=== PATIENT | male | born 1940 | race African-American/Black ===

== ENCOUNTER 2018-12-10 13:20 | Inpatient (IN) | payer OTHER ==
[2018-12-10] MEDS ORDERED: SODIUM CHLORIDE 0.9% 1000 ML INFUS.BAG IV ONE ×2 (14:02→16:33)
--- NOTE | 2018-12-10 14:16 | PDOC ---
History of Present Illness - General Chief Complaint: Weakness Stated Complaint: WEAKNESS Time Seen by Provider: 12/10/18 13:38 - History of Present Illness Initial Comments: 12/10/18 18:40 Pt is a 77 y/o m BIBA from home due to increasing generalized weakness and inability to ambulate. Per phone conversation with daughter, pt was recently admitted to [facility] where he was treated for CHF exacerbation , dementia, and ALIYA. Daughter endorses that pt was discharged on Haldol as he was agitated during that admission. This morning, daughter states that pt appeared confused and could not stand on his feet. Daughter endorses pt has been complaining of shortness of breath for 3 weeks. Pt takes following medications per daughter. Losartan 50 mg daily Carvedilol 12.5 mg Furosemide 20 mg daily Haldol MG bid Tamsulosin .4 Atorvastatin 80 mg Past History - Past Medical History Allergies/Adverse Reactions: Allergies Allergy/AdvReac Type Severity Reaction Status Date / Time No Known Allergies Allergy Verified 12/10/18 17:18 Home Medications: Ambulatory Orders Atorvastatin Ca [Lipitor] 80 mg PO HS 12/10/18 Carvedilol 12.5 mg PO BID 12/10/18 Furosemide 20 mg PO DAILY 12/10/18 Haloperidol 2 mg PO BID 12/10/18 Losartan Potassium 50 mg PO DAILY 12/10/18 Tamsulosin HCl [Flomax] 0.4 mg PO HS 12/10/18 *Physical Exam - Physical Exam General Appearance: Yes: Moderate Distress HEENT: positive: Other (Prosthetic Left Eye ) Neck: positive: Trachea midline, Supple Respiratory/Chest: positive: Decreased Breath Sounds Cardiovascular: positive: Regular Rhythm, S1, S2, JVD Gastrointestinal/Abdominal: negative: Distended, Guarding, Rebound, Tenderness Extremity: negative: Pedal Edema Integumentary: positive: Normal Color, Dry, Warm. negative: Cyanotic, Erythema Neurologic: positive: Confused, Disoriented ED Treatment Course - LABORATORY CBC & Chemistry Diagram: 12/13/18 05:35 12/12/18 05:20 Medical Decision Making - Medical Decision Making -DDX includes but not limited to: Brain bleed, CHF, Toxic metabolic encephalopathy, Adverse drug reaction -Ordered routine labs, Head CT, NS 500 Bolus, troponin, lactic acid, UC, TSH, and Mag. Also will order Blood cultures/Urine culture. -WBC 25K, Will place on Vancomycin and Zosyn. BMP not resulted yet, will administer 1 time does of Vanco and Zosyn not renally dosed. -Pt sent to Cat Scan of Head and Chest -Pt also has UTI. CXR reveals Left upper lobe infiltrate. CT Chest--> small R and left pleural effusions. Superimposed infiltrate cannot be excluded. -Spoke with Dr Ornelas. Pt will be admitted to [facility] for CHF exacerbation/ Pneumonia/Possible Sepsis. Discharge - Discharge Information Problems reviewed: Yes Clinical Impression/Diagnosis: UTI (urinary tract infection), Leukocytosis, Altered mental status, Pneumonia, ALIYA (acute kidney injury), Transaminitis, Elevated troponin I level Condition: Guarded - Follow up/Referral - Patient Discharge Instructions - Post Discharge Activity
--- NOTE | 2018-12-10 15:27 | PDOC ---
Documentation entered by Melvina Andujar SCRIBE, acting as scribe for Letitia Valdez DO. Letitia Valdez DO: This documentation has been prepared by the Con marcelino Sammi, SCRIBE, under my direction and personally reviewed by me in its entirety. I confirm that the documentation accurately reflects all work, treatment, procedures, and medical decision making performed by me. Attending Attestation - Resident Resident Name: Chente Car - ED Attending Attestation I have performed the following: I have examined & evaluated the patient, The case was reviewed & discussed with the resident, I agree w/resident's findings & plan, Exceptions are as noted - HPI HPI: 12/10/18 14:57 The patient is a 78 year old male who presents to the emergency department for evaluation of increased lethargy, dizziness, and AMS noticed by the patients aide this morning. PMH: HTN, brain bleed, CHF - Physicial Exam PE: 12/10/18 14:57 GENERAL: Awake, alert, and oriented to person and place, in no acute distress. Poor historian. +mal odorous HEAD: +little depression right head, well healed sarath EYES: +false left eye. Right 3 and reactive NECK: +JVD. Normal ROM, supple, no lymphadenopathy, or masses LUNGS: Breath sounds equal, clear to auscultation bilaterally. No wheezes, and no crackles HEART: Regular rate and rhythm, normal S1 and S2, no murmurs, rubs or gallops ABDOMEN: Soft, nontender, normoactive bowel sounds. No guarding, no rebound. No masses EXTREMITIES: Normal range of motion, no edema. No clubbing or cyanosis. No cords, erythema, or tenderness NEUROLOGICAL: +Altered. Cranial nerves II through XII grossly intact. SKIN: Warm, Dry, normal turgor, no rashes or lesions noted. - Medical Decision Making 12/10/18 15:08 I, Dr. Letitia Valdez DO, attest that this document has been prepared under my direction and personally reviewed by me in its entirety. I further attest, that it accurately reflects all work, treatment, procedures and medical decision -making performed by me. a/p: 78yo male with altered ms -concern for uti -hx of brain bleeds in the past -concern for uti vs brain bleed vs infection vs electrolyte abnl -will send for head ct, labs, ekg, cxr, ua, ucx 12/10/18 15:41 purulent drainage on straight cath RLL infiltrate on cxr will add blood cultures and will start broad spectrum abx pt will need admission 12/10/18 16:15 wbc 25 abx ordered uti 12/10/18 16:17 pt will need to be admitted pna, uti 12/10/18 16:21 pt with aliya, elevated lft, elevated trop pt denies cp/sob Discharge - Discharge Information Problems reviewed: Yes Clinical Impression/Diagnosis: UTI (urinary tract infection), Leukocytosis, Altered mental status, Pneumonia, ALIYA (acute kidney injury), Transaminitis, Elevated troponin I level Condition: Guarded - Admission Yes - Follow up/Referral - Patient Discharge Instructions - Post Discharge Activity Heart Score/ECG Review - ECG Intrepretation Comment:: 12/10/18 15:41 sinus at 78, nl axis, pvc, q waves septally, abnl ekg
[2018-12-10] MEDS ORDERED: VANCOMYCIN 1 GRAM (PRE-DOCKED) 1,000 MG/250 ML BAG IVPB ONE ×2 (15:28→16:45)
[2018-12-10 15:49] LABS: BASO % 0.2 % (0-2.0); EOS % 0.1 % (0-4.5); HEMATOCRIT 35.1 % (35.4-49); LYMPH % 3.3 % (8-40); MCH 29.8 pg (25.7-33.7); MCHC 31.4 g/dl (32.0-35.9); MEAN CELL VOLUME 94.7 fl (80-96); MEAN PLT VOLUME 13.8 fl (7.5-11.1); MONO % 4.2 % (3.8-10.2); NEUT % 92.2 % (42.8-82.8); PLATELET COUNT 130 K/MM3 (134-434); RDW 13.7 % (11.9-15.9); WHITE BLOOD COUNT 25.7 K/mm3 (4.0-10.0)
[2018-12-10 15:52] LABS: EPI CELLS 8.3 /HPF (0-5/HPF); HYALINE CASTS 7 /lpf (0-8); PH,URINE 6.5 (5.0-8.0); URINE APPEARANCE CLEAR; URINE BACTERIA 4.3 /hpf (NEGATIVE); URINE BILIRUBIN NEGATIVE (NEGATIVE); URINE COLOR YELLOW; URINE GLUCOSE (UA) NEGATIVE (NEGATIVE); URINE KETONE NEGATIVE (NEGATIVE); URINE LEUK ESTERASE 2+ (NEGATIVE); URINE NITRITE NEGATIVE (NEGATIVE); URINE PROTEIN 1+ (NEGATIVE); URINE RBC 374 /hpf (0-4); URINE WBC 31 /hpf (0-5)
[2018-12-10 16:04] LABS: ACTIVATED PTT 31.7 SECONDS (25.2-36.5)
[2018-12-10] MEDS ORDERED: PIPERACILLIN/TAZOB 3.375 GM 3.375 GM in DEXTROSE 5%-WATER - 50 ML IVPB ONE (16:16)
[2018-12-10] MEDS ORDERED: DEXTROSE 5% IVPB ONE (16:18)
[2018-12-10] MEDS ORDERED: VANCOMYCIN IVPB ONE (16:18)
[2018-12-10] MEDS ORDERED: WATER IVPB ONE (16:18)
[2018-12-10 16:19] LABS: ALBUMIN 3.1 g/dl (3.4-5.0); BILIRUBIN,TOTAL 1.8 mg/dL (0.2-1); BLOOD UREA NITROGEN 27.2 mg/dL (7-18); CALCIUM 8.9 mg/dL (8.5-10.1); CREATININE 2.2 mg/dL (0.55-1.3); MAGNESIUM 2.1 mg/dL (1.8-2.4); N-TERMINAL BNP 18613.6 pg/ml (5-450); POTASSIUM 4.1 mmol/L (3.5-5.1); TOT PROT 6.6 g/dl (6.4-8.2)
[2018-12-10 16:41] LABS: INR 1.62 (0.83-1.09); PROTHROMBIN TIME (PATIENT) 19.2 SEC (9.7-13.0)
[2018-12-10] MEDS ORDERED: PIPERACILLIN/TAZOB 3.375 GM 3.375 GM/50 ML BAG IVPB ONE (16:45)
[2018-12-10 17:58] LABS: ANISOCYTOSIS 0; MACROCYTOSIS 0; PLATELET ESTIMATE NORMAL
[2018-12-10] MEDS ORDERED: ACETAMINOPHEN 1000 MG/100 ML VIAL (NON FORMULARY) IVPB ONE (18:44)
[2018-12-10] MEDS ORDERED: ACETAMINOPHEN INJECTION 100 ML IVPB ONE (18:45)
--- NOTE | 2018-12-10 20:46 | HP ---
Admitting History and Physical - Primary Care Physician PCP: Martin Ornelas - Admission History of Present Illness: Pt is a 77 y/o m BIBA from home due to increasing generalized weakness and inability to ambulate. Per phone conversation with daughter, pt was recently admitted to [facility] where he was treated for CHF exacerbation , dementia, and ALIYA. Daughter endorses that pt was discharged on Haldol as he was agitated during that admission. This morning, daughter states that pt appeared confused and could not stand on his feet. Daughter endorses pt has been complaining of shortness of breath for 3 weeks. 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 Cardiovascular: Yes: CHF - Smoking History Smoking history: Unknown if ever smoked Have you smoked in the past 12 months: No - Alcohol/Substance Use Hx Alcohol Use: No Home Medications - Allergies Allergies/Adverse Reactions: Allergies Allergy/AdvReac Type Severity Reaction Status Date / Time No Known Allergies Allergy Verified 12/10/18 17:18 - Home Medications Home Medications: Ambulatory Orders Atorvastatin Ca [Lipitor] 80 mg PO HS 12/10/18 Carvedilol 12.5 mg PO BID 12/10/18 Furosemide 20 mg PO DAILY 12/10/18 Haloperidol 2 mg PO BID 12/10/18 Losartan Potassium 50 mg PO DAILY 12/10/18 Tamsulosin HCl [Flomax] 0.4 mg PO HS 12/10/18 Physical Examination Vital Signs: Vital Signs Temperature 98.1 F 12/10/18 13:30 Pulse Rate 72 12/10/18 13:30 Respiratory Rate 18 12/10/18 13:30 Blood Pressure 134/74 12/10/18 13:30 O2 Sat by Pulse Oximetry (%) 97 12/10/18 13:30 Constitutional: Yes: No Distress HENT: Yes: Atraumatic Neck: Yes: Supple Cardiovascular: Yes: Regular Rate and Rhythm Respiratory: Yes: Rhonchi Gastrointestinal: Yes: Normal Bowel Sounds Extremities: Yes: WNL Edema: No Neurological: Yes: Alert Labs: CBC, BMP 12/10/18 15:07 12/10/18 15:07 Problem List - Problems (1) ALIYA (acute kidney injury) Assessment/Plan: monitor renal consult Code(s): N17.9 - ACUTE KIDNEY FAILURE, UNSPECIFIED (2) Altered mental status Assessment/Plan: doing well alert talking Code(s): R41.82 - ALTERED MENTAL STATUS, UNSPECIFIED (3) Elevated troponin I level Code(s): R79.89 - OTHER SPECIFIED ABNORMAL FINDINGS OF BLOOD CHEMISTRY (4) Pneumonia Code(s): J18.9 - PNEUMONIA, UNSPECIFIED ORGANISM (5) UTI (urinary tract infection) Assessment/Plan: on abx cxs sent Code(s): N39.0 - URINARY TRACT INFECTION, SITE NOT SPECIFIED Assessment/Plan Laboratory Tests 12/10/18 12/10/18 12/10/18 15:07 15:07 15:07 WBC 25.7 H RBC 3.70 L Hgb 11.0 L Hct 35.1 L MCV 94.7 MCH 29.8 MCHC 31.4 L RDW 13.7 Plt Count 130 L MPV 13.8 H Absolute Neuts (auto) 23.7 H Neutrophils % 92.2 H Neutrophils % (Manual) 97.0 H Band Neutrophils % 0.0 Lymphocytes % 3.3 L Lymphocytes % (Manual) 1.0 L Monocytes % 4.2 Monocytes % (Manual) 2 L Eosinophils % 0.1 Eosinophils % (Manual) 0.0 Basophils % 0.2 Basophils % (Manual) 0.0 Myelocytes % (Man) 0 Promyelocytes % (Man) 0 Blast Cells % (Manual) 0 Nucleated RBC % 0 Metamyelocytes 0 Hypochromia 0 Platelet Estimate Normal Polychromasia 1+ Poikilocytosis 0 Anisocytosis 0 Microcytosis 0 Macrocytosis 0 PT with INR 19.20 H INR 1.62 H PTT (Actin FS) 31.7 Sodium Potassium Chloride Carbon Dioxide Anion Gap BUN Creatinine Est GFR (CKD-EPI)AfAm Est GFR (CKD-EPI)NonAf Random Glucose Lactic Acid Calcium Magnesium Total Bilirubin AST ALT Alkaline Phosphatase Creatine Kinase 182 Creatine Kinase Index 0.7 CK-MB (CK-2) 1.3 Troponin I 0.06 H B-Natriuretic Peptide Total Protein Albumin TSH 1.06 Urine Color Urine Appearance Urine pH Ur Specific [place] Urine Protein Urine Glucose (UA) Urine Ketones Urine Blood Urine Nitrite Urine Bilirubin Urine Urobilinogen Ur Leukocyte Esterase Urine WBC (Auto) Urine RBC (Auto) Urine Casts (Auto) U Epithel Cells (Auto) U Sm Round Cell (Auto) Urine Bacteria (Auto) 12/10/18 12/10/18 12/10/18 15:07 15:07 15:10 WBC RBC Hgb Hct MCV MCH MCHC RDW Plt Count MPV Absolute Neuts (auto) Neutrophils % Neutrophils % (Manual) Band Neutrophils % Lymphocytes % Lymphocytes % (Manual) Monocytes % Monocytes % (Manual) Eosinophils % Eosinophils % (Manual) Basophils % Basophils % (Manual) Myelocytes % (Man) Promyelocytes % (Man) Blast Cells % (Manual) Nucleated RBC % Metamyelocytes Hypochromia Platelet Estimate Polychromasia Poikilocytosis Anisocytosis Microcytosis Macrocytosis PT with INR INR PTT (Actin FS) Sodium 142 Potassium 4.1 Chloride 108 H Carbon Dioxide 26 Anion Gap 8 BUN 27.2 H Creatinine 2.2 H Est GFR (CKD-EPI)AfAm 32.52 Est GFR (CKD-EPI)NonAf 28.06 Random Glucose 108 H Lactic Acid 1.8 Calcium 8.9 Magnesium 2.1 Total Bilirubin 1.8 H AST 64 H ALT 99 H Alkaline Phosphatase 206 H Creatine Kinase Creatine Kinase Index CK-MB (CK-2) Troponin I B-Natriuretic Peptide 23920.6 H Total Protein 6.6 Albumin 3.1 L TSH Urine Color Yellow Urine Appearance Clear Urine pH 6.5 Ur Specific [place] 1.018 Urine Protein 1+ H Urine Glucose (UA) Negative Urine Ketones Negative Urine Blood 3+ H Urine Nitrite Negative Urine Bilirubin Negative Urine Urobilinogen 1.0 Ur Leukocyte Esterase 2+ H Urine WBC (Auto) 31 Urine RBC (Auto) 374 Urine Casts (Auto) 7 U Epithel Cells (Auto) 8.3 U Sm Round Cell (Auto) Negative Urine Bacteria (Auto) 4.3 Active Medications Generic Name Dose Route Start Last Admin Trade Name Freq PRN Reason Stop Dose Admin Acetaminophen 650 mg 12/10/18 20:42 Tylenol - PO Q6H PRN FEVER Atorvastatin Calcium 80 mg 12/10/18 22:00 Lipitor - PO HS [facility] Carvedilol 12.5 mg 12/10/18 22:00 Coreg - PO BID [facility] Heparin Sodium (Porcine) 5,000 unit 12/10/18 22:00 Heparin - SQ BID [facility] Losartan Potassium 50 mg 12/11/18 10:00 Cozaar - PO DAILY JONNY Tamsulosin HCl 0.4 mg 12/10/18 22:00 Flomax - PO HS JONNY
[2018-12-10 21:11] LABS: VENOUS PC02 37.2 mmHg (38-52); VENOUS PH 7.43 (7.31-7.41)
[2018-12-10 21:15] LABS: VENOUS PO2 < 49 mmHg (28-48)
[2018-12-10] MEDS ORDERED: TAMSULOSIN HCL 0.4 MG CAP ONE (22:08)
[2018-12-10] MEDS ORDERED: HEPARIN NA (PORCINE) 5,000 UNITS/ML 1ML VIAL ONE (22:08)
[2018-12-10] MEDS ORDERED: ATORVASTATIN CA 80 MG TABLET (FP) ONE (22:08)
[2018-12-10] MEDS ORDERED: CARVEDILOL 12.5 MG TABLET (FP) ONE (22:08)
[2018-12-10] MEDS: HEPARIN NA (PORCINE) 5,000 UNITS/ML 1ML VIAL SQ SCH (22:18)
[2018-12-10] MEDS: ATORVASTATIN CA 80 MG TABLET (FP) PO SCH (22:19)
[2018-12-10] MEDS: TAMSULOSIN HCL 0.4 MG CAP PO SCH (22:19)
[2018-12-10] MEDS: CARVEDILOL 12.5 MG TABLET (FP) PO SCH (22:19)
[2018-12-11 06:19] LABS: BILIRUBIN,TOTAL 2.1 mg/dL (0.2-1); BLOOD UREA NITROGEN 25.9 mg/dL (7-18); CREATININE 2.1 mg/dL (0.55-1.3); POTASSIUM 4.2 mmol/L (3.5-5.1); TOT PROT 6.5 g/dl (6.4-8.2)
[2018-12-11] MEDS ORDERED: CARVEDILOL 12.5 MG TABLET (FP) ONE (08:24)
[2018-12-11] MEDS ORDERED: HEPARIN NA (PORCINE) 5,000 UNITS/ML 1ML VIAL ONE (08:25)
[2018-12-11] MEDS ORDERED: LOSARTAN POTASSIUM 50 MG TABLET (FP) ONE (08:25)
[2018-12-11 08:29] LABS: BASO % 0.3 % (0-2.0); EOS % 0.1 % (0-4.5); HEMATOCRIT 36.6 % (35.4-49); HEMOGLOBIN 11.5 GM/dL (11.7-16.9); LYMPH % 2.2 % (8-40); MCHC 31.4 g/dl (32.0-35.9); MEAN CELL VOLUME 95.7 fl (80-96); MEAN PLT VOLUME 13.1 fl (7.5-11.1); MONO % 4.9 % (3.8-10.2); NEUT % 92.5 % (42.8-82.8); PLATELET COUNT 131 K/MM3 (134-434); RBC 3.82 M/mm3 (4.00-5.60); RDW 14.3 % (11.9-15.9)
[2018-12-11 08:35] LABS: WHITE BLOOD COUNT 32.6 K/mm3 (4.0-10.0)
[2018-12-11] MEDS: LOSARTAN POTASSIUM 50 MG TABLET (FP) PO SCH (09:13)
[2018-12-11] MEDS: HEPARIN NA (PORCINE) 5,000 UNITS/ML 1ML VIAL SQ SCH ×2 (09:13→23:23)
[2018-12-11] MEDS: CARVEDILOL 12.5 MG TABLET (FP) PO SCH ×2 (09:13→23:23)
[2018-12-11] MEDS ORDERED: PIPERACILLIN/TAZOB 3.375 GM 3.375 GM in DEXTROSE 5%-WATER - 50 ML IVPB ONE (10:28)
[2018-12-11] MEDS ORDERED: VANCOMYCIN HCL 1,500 MG in DEXTROSE 5%-WATER - 500 ML IVPB ONE (10:28)
[2018-12-11] MEDS ORDERED: PIPERACILLIN/TAZOB 3.375 GM 3.375 GM/50 ML BAG IVPB ONE (10:31)
--- NOTE | 2018-12-11 11:05 | EKG ---
Test Reason : Blood Pressure : / mmHG Vent. Rate : 079 BPM Atrial Rate : 079 BPM P-R Int : 158 ms QRS Dur : 084 ms QT Int : 382 ms P-R-T Axes : 065 036 160 degrees QTc Int : 438 ms SINUS RHYTHM WITH FREQUENT PREMATURE VENTRICULAR COMPLEXES POSSIBLE LEFT ATRIAL ENLARGEMENT SEPTAL INFARCT , AGE UNDETERMINED ABNORMAL ECG Confirmed by Donnie Nolan MD ([id number]) on 12/11/2018 11:05:06 AM Referred By: Confirmed By:Donnie Nolan MD
--- NOTE | 2018-12-11 11:06 | EKG ---
Test Reason : Blood Pressure : / mmHG Vent. Rate : 076 BPM Atrial Rate : 076 BPM P-R Int : 152 ms QRS Dur : 086 ms QT Int : 378 ms P-R-T Axes : 076 026 198 degrees QTc Int : 425 ms SINUS RHYTHM WITH FREQUENT PREMATURE VENTRICULAR COMPLEXES POSSIBLE LEFT ATRIAL ENLARGEMENT LOW VOLTAGE QRS SEPTAL INFARCT , AGE UNDETERMINED T WAVE ABNORMALITY, CONSIDER LATERAL ISCHEMIA ABNORMAL ECG NO PREVIOUS ECGS AVAILABLE Confirmed by Donnie Nolan MD ([id number]) on 12/11/2018 11:05:26 AM Referred By: Confirmed By:Donnie Nolan MD
[2018-12-11 11:53] LABS: ANISOCYTOSIS 0; MACROCYTOSIS 0; PLATELET ESTIMATE DECREASED
--- NOTE | 2018-12-11 12:27 | CON.CARD ---
Consult Consult Specialty:: Cardiology Referred by:: Hospitalist Reason for Consultation:: Cardiac evaluation - History of Present Illness Chief Complaint: Generalized weakness, shortness of breath History of Present Illness: Patient is a 78 year old male with history of dementia (organic brain), ALIYA on CKD and CHF who presented to ED with increasing generalized weakness and currently complains of back pain. He is a poor historian. He was admitted to [facility] recently and was treated for CHF. He was found to be confused and had difficulty standing on his feet. He also has been complaining of shortness of breath for the past few weeks. Currently, he states chest tightness. Denies palpitations. Denies fever or chills. Denies nausea, vomiting , diarrhea or abdominal pain. Denies headache or lightheadedness. Review of medication indicated history of HTN and hypercholesterolemia. - History Source History Provided By: Medical Record Limitations to Obtaining History: Dementia - Past Medical History FOURTH HAND: Yes: Dementia Cardio/Vascular: Yes: CHF - Alcohol/Substance Use Hx Alcohol Use: No - Smoking History Smoking history: Unknown if ever smoked Have you smoked in the past 12 months: No Home Medications - Allergies Allergies/Adverse Reactions: Allergies Allergy/AdvReac Type Severity Reaction Status Date / Time No Known Allergies Allergy Verified 12/10/18 17:18 - Home Medications Home Medications: Ambulatory Orders Atorvastatin Ca [Lipitor] 80 mg PO HS 12/10/18 Carvedilol 12.5 mg PO BID 12/10/18 Furosemide 20 mg PO DAILY 12/10/18 Haloperidol 2 mg PO BID 12/10/18 Losartan Potassium 50 mg PO DAILY 12/10/18 Tamsulosin HCl [Flomax] 0.4 mg PO HS 12/10/18 Family Medical History Family History: Unable to Obtain Review of Systems - Review of Systems Constitutional: reports: Weakness. denies: Chills, Fever Cardiovascular: reports: Shortness of Breath. denies: Chest Pain, Palpitations Respiratory: reports: SOB, SOB on Exertion. denies: Cough, Hemoptysis, Orthopnea, PND Gastrointestinal: denies: Abdominal Pain, Constipation, Diarrhea, Melena, Nausea , Rectal Bleeding, Vomiting Musculoskeletal: reports: Back Pain. denies: Joint Pain Neurological: denies: Dizziness, Headache, Seizure, Syncope Vital Signs: Vital Signs Temperature 98.9 F 12/11/18 10:47 Pulse Rate 70 12/11/18 10:47 Respiratory Rate 19 12/11/18 10:47 Blood Pressure 138/90 12/11/18 10:47 O2 Sat by Pulse Oximetry (%) 100 12/11/18 10:47 HENT: Yes: Atraumatic Neck: Yes: Supple Respiratory: Yes: Diminished Gastrointestinal: Yes: Normal Bowel Sounds, Soft. No: Tenderness Cardiovascular: Yes: Regular Rate and Rhythm JVD: No PMI: Non-Displaced Heart Sounds: Yes: S1, S2 Murmur: Yes: Systolic Murmur, Grade 1 Edema: No - Other Data Labs, Other Data: CBC, BMP 12/11/18 08:10 12/11/18 05:32 INR, PTT INR 1.62 (0.83-1.09) H 12/10/18 15:07 Troponin, BNP 12/10/18 12/10/18 12/10/18 15:07 15:07 20:45 Troponin I 0.06 H 0.07 H B-Natriuretic Peptide 90243.6 H Sinus rhythm with PVC Echo: Pending Imaging - Results Chest X-ray: Report Reviewed (Suspicious left upper lobe density) Cat Scan: Report Reviewed (Chest CT: pleural effusion and atelectasis, Abd CT: Free pelvic fluid, Head CT- microvascular ischemic changes) EKG: Report Reviewed Problem List - Problems (1) HTN (hypertension) Code(s): I10 - ESSENTIAL (PRIMARY) HYPERTENSION (2) Hypercholesterolemia Code(s): E78.00 - PURE HYPERCHOLESTEROLEMIA, UNSPECIFIED (3) Dementia Code(s): F03.90 - UNSPECIFIED DEMENTIA WITHOUT BEHAVIORAL DISTURBANCE (4) ALIYA (acute kidney injury) Code(s): N17.9 - ACUTE KIDNEY FAILURE, UNSPECIFIED (5) Altered mental status Code(s): R41.82 - ALTERED MENTAL STATUS, UNSPECIFIED (6) Elevated troponin I level Code(s): R79.89 - OTHER SPECIFIED ABNORMAL FINDINGS OF BLOOD CHEMISTRY (7) Leukocytosis Code(s): D72.829 - ELEVATED WHITE BLOOD CELL COUNT, UNSPECIFIED (8) Transaminitis Code(s): R74.0 - NONSPEC ELEV OF LEVELS OF TRANSAMNS & LACTIC ACID DEHYDRGNSE Assessment/Plan 1. Generalized weakness 2. Shortness of breath with small pleural effusion 3. Pelvic fluid ? etiology 4. HTN 5. Hypercholesterolemia 6. Organic brain syndrome/dementia 7. Leukocytosis ? sepsis 8. Demand ischemia 9. Abnormal LFT 10. ALIYA PLAN: 1. Echocardiography to assess LV/RV and valvular function 2. Continue Carvedilol, Losartan and Atorvastatin as tolerated 3. Further evaluation of leukocytosis and source of possible sepsis. Consider empiric antibiotic coverage. Await ID input 4. Trend troponin 5. Monitor renal function and electrolytes Further plans are to follow Lukasz Perez MD
--- NOTE | 2018-12-11 13:00 | CON.ID ---
Consult Consult Specialty:: infectious diseases Referred by:: Reason for Consultation:: weakness,leukocytosis,aliya - History of Present Illness Chief Complaint: weakness History of Present Illness: 78 year old male with pmhx of chf, dementia and aliya who presents to the ER with weakness and fatigue. He was recently in [facility] for ALIYA and CHF. He is a poor historian and unable to give much history. He denies shortness of breath. he denies fevers or chills. He denies dysuria or hematuria. He complains of weakness. 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 Cardio/Vascular: Yes: CHF - Alcohol/Substance Use Hx Alcohol Use: No - Smoking History Smoking history: Unknown if ever smoked Have you smoked in the past 12 months: No Home Medications - Allergies Allergies/Adverse Reactions: Allergies Allergy/AdvReac Type Severity Reaction Status Date / Time No Known Allergies Allergy Verified 12/10/18 17:18 - Home Medications Home Medications: Ambulatory Orders RX: Atorvastatin Ca [Lipitor] 80 mg PO HS 12/10/18 RX: Carvedilol 12.5 mg PO BID 12/10/18 RX: Furosemide 20 mg PO DAILY 12/10/18 RX: Haloperidol 2 mg PO BID 12/10/18 RX: Losartan Potassium 50 mg PO DAILY 12/10/18 RX: Tamsulosin HCl [Flomax] 0.4 mg PO HS 12/10/18 RX: Metronidazole 500 mg PO TID #15 tablet 12/24/18 Review of Systems Unable to obtain ROS, reason: unable to obtain Physical Exam Vital Signs: Vital Signs Temperature 98.9 F 12/11/18 10:47 Pulse Rate 70 12/11/18 10:47 Respiratory Rate 19 12/11/18 10:47 Blood Pressure 138/90 12/11/18 10:47 O2 Sat by Pulse Oximetry (%) 100 12/11/18 10:47 Constitutional: Yes: No Distress, Calm Cardiovascular: Yes: Regular Rate and Rhythm Respiratory: Yes: Regular, CTA Bilaterally Gastrointestinal: Yes: Normal Bowel Sounds, Soft Musculoskeletal: Yes: WNL Extremities: Yes: WNL Edema: LLE: 1+, RLE: 1+ Neurological: Yes: Alert, Other (confusion) Psychiatric: Yes: Alert Labs: CBC, BMP 12/11/18 08:10 12/11/18 05:32 Imaging - Results Chest X-ray: Report Reviewed, Image Reviewed Cat Scan: Report Reviewed, Image Reviewed Assessment/Plan irina List - Problems (1) ALIYA (acute kidney injury) Code(s): N17.9 - ACUTE KIDNEY FAILURE, UNSPECIFIED (2) Dementia Code(s): F03.90 - UNSPECIFIED DEMENTIA WITHOUT BEHAVIORAL DISTURBANCE Qualifiers: Dementia type: unspecified type (3) HTN (hypertension) Code(s): I10 - ESSENTIAL (PRIMARY) HYPERTENSION Qualifiers: Hypertension type: essential hypertension Qualified Code(s): I10 - Essential (primary) hypertension (4) Hydrocele in adult Code(s): N43.3 - HYDROCELE, UNSPECIFIED (5) Leukocytosis Code(s): D72.829 - ELEVATED WHITE BLOOD CELL COUNT, UNSPECIFIED (6) UTI (urinary tract infection) Code(s): N39.0 - URINARY TRACT INFECTION, SITE NOT SPECIFIED Assessment/Plan Diarrhea UTI Leukocytosis plan will start patient on abx all cx reports monitor wbc probably uti once we have all reports then will decide final plan
[2018-12-11] MEDS ORDERED: PIPERACILLIN/TAZOB 2.25 GM 2.25 GM in DEXTROSE 5%-WATER - 50 ML IVPB SCH (13:15)
[2018-12-11] MEDS: PIPERACILLIN/TAZOB 3.375 GM 3.375 GM in DEXTROSE 5%-WATER - 50 ML IVPB SCH ×2 (13:19→18:57)
--- NOTE | 2018-12-11 16:50 | PN ---
Progress Note, Physician - Current Medication List Current Medications: Active Medications Acetaminophen (Tylenol -) 650 mg PO Q6H PRN PRN Reason: FEVER Atorvastatin Calcium (Lipitor -) 80 mg PO HS [facility] Last Admin: 12/10/18 22:19 Dose: Not Given Carvedilol (Coreg -) 12.5 mg PO BID [facility] Last Admin: 12/11/18 09:13 Dose: 12.5 mg Heparin Sodium (Porcine) (Heparin -) 5,000 unit SQ BID [facility] Last Admin: 12/11/18 09:13 Dose: 5,000 unit Piperacillin Sod/Tazobactam (Sod 3.375 gm/ Dextrose) 50 mls @ 100 mls/hr IVPB Q8H-IV JONNY; Protocol Last Admin: 12/11/18 13:19 Dose: Not Given Losartan Potassium (Cozaar -) 50 mg PO DAILY [facility] Last Admin: 12/11/18 09:13 Dose: 50 mg Tamsulosin HCl (Flomax -) 0.4 mg PO HS [facility] Last Admin: 12/10/18 22:19 Dose: Not Given - Objective Vital Signs: Vital Signs Temperature 99.2 F 12/11/18 14:46 Pulse Rate 68 12/11/18 14:46 Respiratory Rate 19 12/11/18 14:46 Blood Pressure 103/88 12/11/18 14:46 O2 Sat by Pulse Oximetry (%) 98 12/11/18 14:46 Constitutional: Yes: No Distress HENT: Yes: Atraumatic Neck: Yes: Supple Cardiovascular: Yes: Regular Rate and Rhythm Respiratory: Yes: CTA Bilaterally Gastrointestinal: Yes: Normal Bowel Sounds Extremities: Yes: WNL Edema: No Peripheral Pulses WNL: Yes Neurological: Yes: Alert Labs: CBC, BMP 12/11/18 08:10 12/11/18 05:32 INR, PTT INR 1.62 (0.83-1.09) H 12/10/18 15:07 Problem List - Problems (1) ALIYA (acute kidney injury) Assessment/Plan: monitor improving renal consult Code(s): N17.9 - ACUTE KIDNEY FAILURE, UNSPECIFIED (2) Altered mental status Assessment/Plan: doing well alert talking Code(s): R41.82 - ALTERED MENTAL STATUS, UNSPECIFIED (3) Elevated troponin I level Code(s): R79.89 - OTHER SPECIFIED ABNORMAL FINDINGS OF BLOOD CHEMISTRY (4) Pneumonia Code(s): J18.9 - PNEUMONIA, UNSPECIFIED ORGANISM (5) UTI (urinary tract infection) Assessment/Plan: on abx cxs noted Code(s): N39.0 - URINARY TRACT INFECTION, SITE NOT SPECIFIED
[2018-12-11] MEDS ORDERED: PIPERACILLIN/TAZOBACTAM 3.375 GM VIAL IVPB ONE (17:40)
[2018-12-11] MEDS ORDERED: DEXTROSE 5%-WATER - 50 ML IVPB ONE (17:40)
[2018-12-11] MEDS: HALOPERIDOL 2 MG TABLET PO SCH (23:23)
[2018-12-11] MEDS: TAMSULOSIN HCL 0.4 MG CAP PO SCH (23:23)
[2018-12-11] MEDS: ATORVASTATIN CA 80 MG TABLET (FP) PO SCH (23:23)
[2018-12-12] MEDS ORDERED: PIPERACILLIN/TAZOBACTAM 3.375 GM VIAL IVPB ONE ×2 (02:45→10:13)
[2018-12-12] MEDS ORDERED: DEXTROSE 5%-WATER - 50 ML IVPB ONE ×2 (02:47→10:13)
[2018-12-12] MEDS: PIPERACILLIN/TAZOB 3.375 GM 3.375 GM in DEXTROSE 5%-WATER - 50 ML IVPB SCH ×2 (03:40→10:19)
[2018-12-12 06:51] LABS: HEMATOCRIT 32.8 % (35.4-49); HEMOGLOBIN 10.6 GM/dL (11.7-16.9); MCH 30.4 pg (25.7-33.7); MCHC 32.3 g/dl (32.0-35.9); MEAN CELL VOLUME 94.2 fl (80-96); MEAN PLT VOLUME 13.1 fl (7.5-11.1); PLATELET COUNT 145 K/MM3 (134-434); RBC 3.48 M/mm3 (4.00-5.60); RDW 13.9 % (11.9-15.9); WHITE BLOOD COUNT 24.5 K/mm3 (4.0-10.0)
[2018-12-12 07:33] LABS: CALCIUM 8.5 mg/dL (8.5-10.1); POTASSIUM 4.1 mmol/L (3.5-5.1)
[2018-12-12] MEDS ORDERED: PT OWN MED DRAWER 7, Y5N ONE ×6 (10:12→23:10)
[2018-12-12] MEDS: HEPARIN NA (PORCINE) 5,000 UNITS/ML 1ML VIAL SQ SCH ×2 (10:18→21:15)
[2018-12-12] MEDS: LOSARTAN POTASSIUM 50 MG TABLET (FP) PO SCH (10:18)
[2018-12-12] MEDS: CARVEDILOL 12.5 MG TABLET (FP) PO SCH ×2 (10:18→21:16)
[2018-12-12] MEDS: HALOPERIDOL 2 MG TABLET PO SCH ×2 (10:19→21:17)
--- NOTE | 2018-12-12 11:53 | PN ---
Progress Note, Physician History of Present Illness: Sensorium improved, denies chest pain or dyspnea. Diarrhea w/o abd pain started on oral vanco. - Current Medication List Current Medications: Active Medications Acetaminophen (Tylenol -) 650 mg PO Q6H PRN PRN Reason: FEVER Atorvastatin Calcium (Lipitor -) 80 mg PO HS [facility] Last Admin: 12/11/18 23:23 Dose: 80 mg Carvedilol (Coreg -) 12.5 mg PO BID [facility] Last Admin: 12/12/18 10:18 Dose: 12.5 mg Haloperidol (Haldol -) 2 mg PO BID [facility] Last Admin: 12/12/18 10:19 Dose: 2 mg Heparin Sodium (Porcine) (Heparin -) 5,000 unit SQ BID [facility] Last Admin: 12/12/18 10:18 Dose: 5,000 unit Piperacillin Sod/Tazobactam (Sod 3.375 gm/ Dextrose) 50 mls @ 100 mls/hr IVPB Q8H-IV [facility]; Protocol Last Admin: 12/12/18 10:19 Dose: 100 mls/hr Losartan Potassium (Cozaar -) 50 mg PO DAILY [facility] Last Admin: 12/12/18 10:18 Dose: 50 mg Tamsulosin HCl (Flomax -) 0.4 mg PO HS [facility] Last Admin: 12/11/18 23:23 Dose: 0.4 mg - Objective Vital Signs: Vital Signs Temperature 99.2 F 12/12/18 09:00 Pulse Rate 86 12/12/18 09:00 Respiratory Rate 18 12/12/18 09:00 Blood Pressure 114/75 12/12/18 09:00 O2 Sat by Pulse Oximetry (%) 98 12/11/18 21:00 Constitutional: Yes: No Distress, Calm Neck: Yes: Supple Cardiovascular: Yes: Regular Rate and Rhythm Respiratory: Yes: Regular, Diminished, On Nasal O2 Gastrointestinal: Yes: Normal Bowel Sounds, Soft Edema: No Labs: CBC, BMP 12/12/18 05:20 12/12/18 05:20 INR, PTT INR 1.62 (0.83-1.09) H 12/10/18 15:07 - ....Imaging EKG: Report Reviewed (Tele: NSR occ [facility]) Problem List - Problems (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 Code(s): I51.89 - OTHER ILL-DEFINED HEART DISEASES (2) ALIYA (acute kidney injury) Code(s): N17.9 - ACUTE KIDNEY FAILURE, UNSPECIFIED (3) Dementia Code(s): F03.90 - UNSPECIFIED DEMENTIA WITHOUT BEHAVIORAL DISTURBANCE Qualifiers: Dementia type: unspecified type (4) Elevated troponin I level Code(s): R79.89 - OTHER SPECIFIED ABNORMAL FINDINGS OF BLOOD CHEMISTRY (5) HTN (hypertension) Code(s): I10 - ESSENTIAL (PRIMARY) HYPERTENSION Qualifiers: Hypertension type: essential hypertension Qualified Code(s): I10 - Essential (primary) hypertension (6) Hypercholesterolemia Code(s): E78.00 - PURE HYPERCHOLESTEROLEMIA, UNSPECIFIED (7) Leukocytosis Code(s): D72.829 - ELEVATED WHITE BLOOD CELL COUNT, UNSPECIFIED (8) Transaminitis Code(s): R74.0 - NONSPEC ELEV OF LEVELS OF TRANSAMNS & LACTIC ACID DEHYDRGNSE Assessment/Plan 12/12/2018 Echo: Mildly dilated with moderate-severe decreased LVEF 35-40%, mild MR, TR, mild AR, mod ADAM, restrictive physiology 1. Shortness of breath, weakness with small pleural effusion improving 2/2 2. 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 HTN heart disease 4. Hypercholesterolemia 5. Organic brain syndrome/dementia 6. Leukocytosis, diarrhea, r/o c. diff 7. Abnormal LFT c/w hepatic congestion improving 8. Acute on CKD improving PLAN: 1. Continue Carvedilol 12.5 bid, Losartan 50 qd and Atorvastatin 80 qhs as tolerated 2. Not on aldosterone inhibition due to CKD 3. Further evaluation of leukocytosis and source of possible sepsis, r/o c. diff. Continue empiric antibiotic coverage. Appreciate ID input 4. Troponin plateaued, trend WBC 5. DVT prophylaxis
--- NOTE | 2018-12-12 12:22 | ECHO ---
Name: DASHA WEISS Exam:Adult Echocardiogram Study Date: 12/12/2018 07:46 AM Age: 78 yrs Reason For Study: SOB Height: 73 in Weight: 210 lb BSA: 2.2 m2 MMode/2D Measurements & Calculations IVSd: 1.0 cm Ao root diam: 3.3 cm LVIDd: 5.7 cm LA dimension: 3.8 cm LVIDs: 4.6 cm LVPWd: 1.2 cm EDV(Teich): 157.9 ml LVOT diam: 2.0 cm ESV(Teich): 99.1 ml LAV (MOD-bp): 113.0 ml Doppler Measurements & Calculations MV E max yared: 88.8 cm/sec Ao V2 max: 112.7 cm/sec MV A max yared: 33.0 cm/sec Ao max P.1 mmHg MV E/A: 2.7 AI P1/2t: 558.1 msec MV dec time: 0.18 sec CRAIG(V,D): 2.1 cm2 AI max yared: 245.7 cm/sec LV V1 max P.1 mmHg AI max P.2 mmHg LV V1 max: 72.8 cm/sec AI dec slope: 128.9 cm/sec2 MR max yared: 324.0 cm/sec TR max yared: 227.4 cm/sec MR max P.6 mmHg TR max P.9 mmHg PA V2 max: 76.0 cm/sec Med Peak E' Yared: 3.4 cm/sec PA max P.3 mmHg Med E/e': 26.3 Lat Peak E' Yared: 6.4 cm/sec Lat E/e': 13.8 Procedure A two-dimensional transthoracic echocardiogram with color flow and Doppler was performed. Left Ventricle The left ventricle is mildly dilated. Left ventricular systolic function is moderate to severely redu sandeep. Ejection Fraction = 35-40%. The transmitral spectral Doppler flow pattern is suggestive of restrictiv e physiology. There is moderate to severe global hypokinesis of the left ventricle. Septal motion is co nsistent with conduction abnormality. Right Ventricle The right ventricle is not well visualized. Atria The left atrium is moderately dilated. The right atrium is moderately dilated. Mitral Valve The mitral valve is normal in structure and function. There is no mitral valve stenosis. There is mil d mitral regurgitation. Tricuspid Valve The tricuspid valve is not well visualized. There is no tricuspid stenosis. There is mild tricuspid regurgitation. Right ventricular systolic pressure is normal. Aortic Valve The aortic valve is normal in structure and function. No hemodynamically significant valvular aortic stenosis. Mild aortic regurgitation. Great Vessels The aortic root is normal size. Pericardium/Pleura There is a mild pericardial effusion. Interpretation Summary The left ventricle is mildly dilated. There is a mild pericardial effusion. There is mild mitral regurgitation. There is mild tricuspid regurgitation. Right ventricular systolic pressure is normal. Septal motion is consistent with conduction abnormality. Left ventricular systolic function is moderate to severely reduced. There is moderate to severe global hypokinesis of the left ventricle. Ejection Fraction = 35-40%. Mild aortic regurgitation. The transmitral spectral Doppler flow pattern is suggestive of restrictive physiology. The left atrium is moderately dilated. The right atrium is moderately dilated. The right ventricle is not well visualized. MD Evelio Saenz 12/12/2018 12:21 PM
--- NOTE | 2018-12-12 14:37 | PN ---
Progress Note, Physician - Current Medication List Current Medications: Active Medications Acetaminophen (Tylenol -) 650 mg PO Q6H PRN PRN Reason: FEVER Atorvastatin Calcium (Lipitor -) 80 mg PO HS [facility] Last Admin: 12/11/18 23:23 Dose: 80 mg Carvedilol (Coreg -) 12.5 mg PO BID [facility] Last Admin: 12/12/18 10:18 Dose: 12.5 mg Haloperidol (Haldol -) 2 mg PO BID [facility] Last Admin: 12/12/18 10:19 Dose: 2 mg Heparin Sodium (Porcine) (Heparin -) 5,000 unit SQ BID [facility] Last Admin: 12/12/18 10:18 Dose: 5,000 unit Piperacillin Sod/Tazobactam (Sod 3.375 gm/ Dextrose) 50 mls @ 100 mls/hr IVPB Q8H-IV [facility]; Protocol Last Admin: 12/12/18 10:19 Dose: 100 mls/hr Losartan Potassium (Cozaar -) 50 mg PO DAILY [facility] Last Admin: 12/12/18 10:18 Dose: 50 mg Tamsulosin HCl (Flomax -) 0.4 mg PO [facility] Last Admin: 12/11/18 23:23 Dose: 0.4 mg - Objective Vital Signs: Vital Signs Temperature 98.5 F 12/12/18 14:00 Pulse Rate 65 12/12/18 14:00 Respiratory Rate 18 12/12/18 09:00 Blood Pressure 109/67 12/12/18 14:00 O2 Sat by Pulse Oximetry (%) 98 12/12/18 09:00 Constitutional: Yes: No Distress HENT: Yes: Atraumatic Neck: Yes: Supple Cardiovascular: Yes: Regular Rate and Rhythm Respiratory: Yes: CTA Bilaterally Gastrointestinal: Yes: Normal Bowel Sounds Extremities: Yes: WNL Edema: No Peripheral Pulses WNL: Yes Neurological: Yes: Alert Labs: CBC, BMP 12/12/18 05:20 12/12/18 05:20 INR, PTT INR 1.62 (0.83-1.09) H 12/10/18 15:07 Problem List - Problems (1) ALIYA (acute kidney injury) Assessment/Plan: monitor improving renal consult Code(s): N17.9 - ACUTE KIDNEY FAILURE, UNSPECIFIED (2) Altered mental status Assessment/Plan: doing well alert talking Code(s): R41.82 - ALTERED MENTAL STATUS, UNSPECIFIED (3) Elevated troponin I level Code(s): R79.89 - OTHER SPECIFIED ABNORMAL FINDINGS OF BLOOD CHEMISTRY (4) Pneumonia Code(s): J18.9 - PNEUMONIA, UNSPECIFIED ORGANISM (5) UTI (urinary tract infection) Assessment/Plan: on abx cxs noted Code(s): N39.0 - URINARY TRACT INFECTION, SITE NOT SPECIFIED (6) HTN (hypertension) Assessment/Plan: on meds Code(s): I10 - ESSENTIAL (PRIMARY) HYPERTENSION Qualifiers: Hypertension type: essential hypertension Qualified Code(s): I10 - Essential (primary) hypertension
--- NOTE | 2018-12-12 14:38 | PN ---
Progress Note, Physician History of Present Illness: stable no new issues having severe dirrhoea - Current Medication List Current Medications: Active Medications Acetaminophen (Tylenol -) 650 mg PO Q6H PRN PRN Reason: FEVER Atorvastatin Calcium (Lipitor -) 80 mg PO HS [facility] Last Admin: 12/11/18 23:23 Dose: 80 mg Carvedilol (Coreg -) 12.5 mg PO BID [facility] Last Admin: 12/12/18 10:18 Dose: 12.5 mg Haloperidol (Haldol -) 2 mg PO BID [facility] Last Admin: 12/12/18 10:19 Dose: 2 mg Heparin Sodium (Porcine) (Heparin -) 5,000 unit SQ BID [facility] Last Admin: 12/12/18 10:18 Dose: 5,000 unit Piperacillin Sod/Tazobactam (Sod 3.375 gm/ Dextrose) 50 mls @ 100 mls/hr IVPB Q8H-IV [facility]; Protocol Last Admin: 12/12/18 10:19 Dose: 100 mls/hr Losartan Potassium (Cozaar -) 50 mg PO DAILY [facility] Last Admin: 12/12/18 10:18 Dose: 50 mg Tamsulosin HCl (Flomax -) 0.4 mg PO HS [facility] Last Admin: 12/11/18 23:23 Dose: 0.4 mg - Objective Vital Signs: Vital Signs Temperature 98.5 F 12/12/18 14:00 Pulse Rate 65 12/12/18 14:00 Respiratory Rate 18 12/12/18 09:00 Blood Pressure 109/67 12/12/18 14:00 O2 Sat by Pulse Oximetry (%) 98 12/12/18 09:00 Constitutional: Yes: No Distress, Calm Cardiovascular: Yes: S1, S2 Respiratory: Yes: Regular, CTA Bilaterally Gastrointestinal: Yes: Normal Bowel Sounds, Soft Musculoskeletal: Yes: WNL Extremities: Yes: WNL Labs: CBC, BMP 12/12/18 05:20 12/12/18 05:20 INR, PTT INR 1.62 (0.83-1.09) H 12/10/18 15:07 Assessment/Plan dirrhoea r/o cdiff weakness cdiff study ordered leukocytosis plan will start oral vanco monitor wbc continue iv vanco for now rest as per the team
[2018-12-12] MEDS: VANCOMYCIN 250 MG/5 ML ORAL SOLUTION PO SCH ×2 (17:33→23:28)
[2018-12-12] MEDS: ATORVASTATIN CA 80 MG TABLET (FP) PO SCH (21:15)
[2018-12-12] MEDS: TAMSULOSIN HCL 0.4 MG CAP PO SCH (21:16)
[2018-12-13] MEDS: ACETAMINOPHEN 325 MG TABLET (FP) PO PRN (06:17)
[2018-12-13] MEDS: VANCOMYCIN 250 MG/5 ML ORAL SOLUTION PO SCH ×4 (06:18→23:39)
[2018-12-13 07:26] LABS: HEMATOCRIT 32.9 % (35.4-49); HEMOGLOBIN 10.6 GM/dL (11.7-16.9); MCH 30.4 pg (25.7-33.7); MCHC 32.3 g/dl (32.0-35.9); MEAN CELL VOLUME 94.2 fl (80-96); MEAN PLT VOLUME 13.1 fl (7.5-11.1); PLATELET COUNT 146 K/MM3 (134-434); RBC 3.49 M/mm3 (4.00-5.60); RDW 14.3 % (11.9-15.9); WHITE BLOOD COUNT 16.8 K/mm3 (4.0-10.0)
[2018-12-13] MEDS ORDERED: PT OWN MED DRAWER 7, Y5N ONE ×2 (08:45→11:44)
--- NOTE | 2018-12-13 09:11 | PN ---
Progress Note, Physician History of Present Illness: Sensorium improved, denies chest pain or dyspnea. Diarrhea w/o abd pain improved on oral vanco, c. diff toxin pending. - Current Medication List Current Medications: Active Medications Acetaminophen (Tylenol -) 650 mg PO Q6H PRN PRN Reason: FEVER Last Admin: 12/13/18 06:17 Dose: 650 mg Atorvastatin Calcium (Lipitor -) 80 mg PO [facility] Last Admin: 12/12/18 21:15 Dose: 80 mg Carvedilol (Coreg -) 12.5 mg PO BID [facility] Last Admin: 12/12/18 21:16 Dose: 12.5 mg Haloperidol (Haldol -) 2 mg PO BID [facility] Last Admin: 12/12/18 21:17 Dose: 2 mg Heparin Sodium (Porcine) (Heparin -) 5,000 unit SQ BID [facility] Last Admin: 12/12/18 21:15 Dose: 5,000 unit Losartan Potassium (Cozaar -) 50 mg PO DAILY [facility] Last Admin: 12/12/18 10:18 Dose: 50 mg Tamsulosin HCl (Flomax -) 0.4 mg PO HS [facility] Last Admin: 12/12/18 21:16 Dose: 0.4 mg Vancomycin HCl (Vancomycin Oral Solution) 125 mg PO Q6HPO [facility] Last Admin: 12/13/18 06:18 Dose: 125 mg - Objective Vital Signs: Vital Signs Temperature 99.8 F H 12/13/18 06:42 Pulse Rate 68 12/13/18 06:42 Respiratory Rate 20 12/13/18 06:42 Blood Pressure 117/68 12/13/18 06:42 O2 Sat by Pulse Oximetry (%) 100 12/12/18 21:00 Constitutional: Yes: No Distress, Calm, Thin Neck: Yes: Supple Cardiovascular: Yes: Regular Rate and Rhythm Respiratory: Yes: Regular, Diminished Gastrointestinal: Yes: Normal Bowel Sounds, Soft Edema: No Labs: CBC, BMP 12/13/18 05:35 12/12/18 05:20 INR, PTT INR 1.62 (0.83-1.09) H 12/10/18 15:07 - ....Imaging EKG: Report Reviewed (Tele: NSR occ [facility]) Problem List - Problems (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 Code(s): I51.89 - OTHER ILL-DEFINED HEART DISEASES (2) ALIYA (acute kidney injury) Code(s): N17.9 - ACUTE KIDNEY FAILURE, UNSPECIFIED (3) Dementia Code(s): F03.90 - UNSPECIFIED DEMENTIA WITHOUT BEHAVIORAL DISTURBANCE Qualifiers: Dementia type: unspecified type (4) Elevated troponin I level Code(s): R79.89 - OTHER SPECIFIED ABNORMAL FINDINGS OF BLOOD CHEMISTRY (5) HTN (hypertension) Code(s): I10 - ESSENTIAL (PRIMARY) HYPERTENSION Qualifiers: Hypertension type: essential hypertension Qualified Code(s): I10 - Essential (primary) hypertension (6) Hypercholesterolemia Code(s): E78.00 - PURE HYPERCHOLESTEROLEMIA, UNSPECIFIED (7) Leukocytosis Code(s): D72.829 - ELEVATED WHITE BLOOD CELL COUNT, UNSPECIFIED (8) Transaminitis Code(s): R74.0 - NONSPEC ELEV OF LEVELS OF TRANSAMNS & LACTIC ACID DEHYDRGNSE Assessment/Plan 12/12/2018 Echo: Mildly dilated with moderate-severe decreased LVEF 35-40%, mild MR, TR, mild AR, mod ADAM, restrictive physiology 1. Shortness of breath, weakness with small pleural effusion improving 2/2 2. 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 HTN heart disease 4. Hypercholesterolemia 5. Organic brain syndrome/dementia 6. Leukocytosis, diarrhea, r/o c. diff 7. Abnormal LFT c/w hepatic congestion improving 8. Acute on CKD improving PLAN: 1. Continue Carvedilol 12.5 bid, Losartan 50 qd and Atorvastatin 80 qhs as tolerated 2. Not on aldosterone inhibition due to CKD 3. Further evaluation of leukocytosis and source of possible sepsis, r/o c. diff. Continue empiric antibiotic coverage. Appreciate ID input 4. Troponin plateaued, WBC trending downwards 5. DVT prophylaxis
[2018-12-13] MEDS: LOSARTAN POTASSIUM 50 MG TABLET (FP) PO SCH (09:44)
[2018-12-13] MEDS: CARVEDILOL 12.5 MG TABLET (FP) PO SCH ×2 (09:44→21:28)
[2018-12-13] MEDS: HEPARIN NA (PORCINE) 5,000 UNITS/ML 1ML VIAL SQ SCH ×2 (09:44→21:29)
[2018-12-13] MEDS: HALOPERIDOL 2 MG TABLET PO SCH ×2 (09:45→21:29)
--- NOTE | 2018-12-13 11:11 | PN ---
Progress Note, Physician History of Present Illness: stable still with dirrhoea - Current Medication List Current Medications: Active Medications Acetaminophen (Tylenol -) 650 mg PO Q6H PRN PRN Reason: FEVER Last Admin: 12/13/18 06:17 Dose: 650 mg Atorvastatin Calcium (Lipitor -) 80 mg PO HS [facility] Last Admin: 12/12/18 21:15 Dose: 80 mg Carvedilol (Coreg -) 12.5 mg PO BID [facility] Last Admin: 12/13/18 09:44 Dose: 12.5 mg Haloperidol (Haldol -) 2 mg PO BID [facility] Last Admin: 12/12/18 21:17 Dose: 2 mg Heparin Sodium (Porcine) (Heparin -) 5,000 unit SQ BID [facility] Last Admin: 12/13/18 09:44 Dose: 5,000 unit Losartan Potassium (Cozaar -) 50 mg PO DAILY [facility] Last Admin: 12/13/18 09:44 Dose: 50 mg Tamsulosin HCl (Flomax -) 0.4 mg PO HS [facility] Last Admin: 12/12/18 21:16 Dose: 0.4 mg Vancomycin HCl (Vancomycin Oral Solution) 125 mg PO Q6HPO [facility] Last Admin: 12/13/18 06:18 Dose: 125 mg - Objective Vital Signs: Vital Signs Temperature 99.0 F 12/13/18 09:47 Pulse Rate 65 12/13/18 09:47 Respiratory Rate 20 12/13/18 09:47 Blood Pressure 110/65 12/13/18 09:47 O2 Sat by Pulse Oximetry (%) 100 12/13/18 09:00 Constitutional: Yes: No Distress, Calm Cardiovascular: Yes: S1, S2 Gastrointestinal: Yes: Normal Bowel Sounds, Soft Musculoskeletal: Yes: WNL Extremities: Yes: Other Neurological: Yes: Alert, Oriented Psychiatric: Yes: Alert, Oriented Labs: CBC, BMP 12/13/18 05:35 12/12/18 05:20 INR, PTT INR 1.62 (0.83-1.09) H 12/10/18 15:07 Assessment/Plan dirrhoea r/o cdiff weakness cdiff study ordered leukocytosis plan follow wbc rest as per the team
--- NOTE | 2018-12-13 13:14 | CONSULT ---
Consult Consult Specialty:: Nephrology Reason for Consultation:: ALIYA - History of Present Illness Chief Complaint: weakness and confusion History of Present Illness: Pt is a 78 year old male with pmhx of chf, dementia and aliya who presents to the ER with weakness and fatigue. He was recently in [facility] for ALIYA and CHF. He is a poor historian and unable to give much history. He denies shortness of breath. he denies fevers or chills. He denies dysuria or hematuria. He complains of weakness. - History Source History Provided By: Patient, Family Member, Medical Record - Past Medical History MANAGER TRAFFIC: Yes: Dementia Cardio/Vascular: Yes: CHF Renal/: Yes: Renal Failure - Alcohol/Substance Use Hx Alcohol Use: No - Smoking History Smoking history: Unknown if ever smoked Have you smoked in the past 12 months: No Home Medications - Allergies Allergies/Adverse Reactions: Allergies Allergy/AdvReac Type Severity Reaction Status Date / Time No Known Allergies Allergy Verified 12/10/18 17:18 - Home Medications Home Medications: Ambulatory Orders Atorvastatin Ca [Lipitor] 80 mg PO HS 12/10/18 Carvedilol 12.5 mg PO BID 12/10/18 Furosemide 20 mg PO DAILY 12/10/18 Haloperidol 2 mg PO BID 12/10/18 Losartan Potassium 50 mg PO DAILY 12/10/18 Tamsulosin HCl [Flomax] 0.4 mg PO HS 12/10/18 Family Medical History Family History: Unable to Obtain Review of Systems - Review of Systems Constitutional: reports: Malaise, Weakness Eyes: reports: No Symptoms HENT: reports: No Symptoms Neck: reports: No Symptoms Cardiovascular: reports: Shortness of Breath Gastrointestinal: reports: No Symptoms Genitourinary: reports: No Symptoms Musculoskeletal: reports: No Symptoms Integumentary: reports: No Symptoms Neurological: reports: Confusion Endocrine: reports: No Symptoms Hematology/Lymphatic: reports: No Symptoms Psychiatric: reports: No Symptoms Physical Exam Vital Signs: Vital Signs Temperature 99.0 F 12/13/18 09:47 Pulse Rate 65 12/13/18 09:47 Respiratory Rate 20 12/13/18 09:47 Blood Pressure 110/65 12/13/18 09:47 O2 Sat by Pulse Oximetry (%) 100 12/13/18 09:00 Constitutional: Yes: Calm Eyes: Yes: Conjunctiva Clear HENT: Yes: Atraumatic Neck: Yes: Supple Cardiovascular: Yes: S1, S2 Respiratory: Yes: CTA Bilaterally Gastrointestinal: Yes: Soft Renal/: Yes: WNL Musculoskeletal: Yes: WNL Edema: No Neurological: Yes: Confusion Labs: CBC, BMP 12/13/18 05:35 12/12/18 05:20 Laboratory Tests 12/10/18 12/10/18 12/11/18 15:07 15:10 05:32 WBC Sodium Potassium Chloride Creatinine 2.2 H 2.1 H B-Natriuretic Peptide 73167.6 H Urine Protein 1+ H Urine Blood 3+ H 12/12/18 12/12/18 12/13/18 05:20 05:20 05:35 WBC 24.5 H 16.8 H Sodium 144 Potassium 4.1 Chloride 109 H Creatinine 2.0 H B-Natriuretic Peptide Urine Protein Urine Blood Imaging - Results Chest X-ray: Report Reviewed Problem List - Problems (1) ALIYA (acute kidney injury) Code(s): N17.9 - ACUTE KIDNEY FAILURE, UNSPECIFIED (2) Altered mental status Code(s): R41.82 - ALTERED MENTAL STATUS, UNSPECIFIED Assessment/Plan Current Medications Generic Name Dose Route Start Last Admin Trade Name Freq PRN Reason Stop Dose Admin Acetaminophen 650 mg 12/10/18 20:42 12/13/18 06:17 Tylenol - PO 650 mg Q6H PRN Administration FEVER Atorvastatin Calcium 80 mg 12/10/18 22:00 12/12/18 21:15 Lipitor - PO 80 mg HS [facility] Administration Carvedilol 12.5 mg 12/10/18 22:00 12/13/18 09:44 Coreg - PO 12.5 mg BID [facility] Administration Haloperidol 2 mg 12/11/18 22:00 12/13/18 09:45 Haldol - PO 2 mg BID [facility] Administration Heparin Sodium (Porcine) 5,000 unit 12/10/18 22:00 12/13/18 09:44 Heparin - SQ 5,000 unit BID [facility] Administration Losartan Potassium 50 mg 12/11/18 10:00 12/13/18 09:44 Cozaar - PO 50 mg DAILY [facility] Administration Tamsulosin HCl 0.4 mg 12/10/18 22:00 12/12/18 21:16 Flomax - PO 0.4 mg HS [facility] Administration Vancomycin HCl 125 mg 12/12/18 18:00 12/13/18 11:44 Vancomycin Oral Solution PO 5 ml Q6HPO [facility] Administration Impression 1. ALIYA vs CKD 2. HTN 3. CHF 4. weakness 5. 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
--- NOTE | 2018-12-13 15:43 | PN ---
Progress Note, Physician - Current Medication List Current Medications: Active Medications Acetaminophen (Tylenol -) 650 mg PO Q6H PRN PRN Reason: FEVER Last Admin: 12/13/18 06:17 Dose: 650 mg Atorvastatin Calcium (Lipitor -) 80 mg PO HS [facility] Last Admin: 12/12/18 21:15 Dose: 80 mg Carvedilol (Coreg -) 12.5 mg PO BID [facility] Last Admin: 12/13/18 09:44 Dose: 12.5 mg Haloperidol (Haldol -) 2 mg PO BID [facility] Last Admin: 12/13/18 09:45 Dose: 2 mg Heparin Sodium (Porcine) (Heparin -) 5,000 unit SQ BID [facility] Last Admin: 12/13/18 09:44 Dose: 5,000 unit Losartan Potassium (Cozaar -) 50 mg PO DAILY [facility] Last Admin: 12/13/18 09:44 Dose: 50 mg Tamsulosin HCl (Flomax -) 0.4 mg PO HS [facility] Last Admin: 12/12/18 21:16 Dose: 0.4 mg Vancomycin HCl (Vancomycin Oral Solution) 125 mg PO Q6HPO [facility] Last Admin: 12/13/18 11:44 Dose: 5 ml - Objective Vital Signs: Vital Signs Temperature 98.0 F 12/13/18 14:00 Pulse Rate 95 H 12/13/18 14:00 Respiratory Rate 20 12/13/18 09:47 Blood Pressure 147/85 12/13/18 14:00 O2 Sat by Pulse Oximetry (%) 100 12/13/18 09:00 Constitutional: Yes: No Distress HENT: Yes: Atraumatic Neck: Yes: Supple Cardiovascular: Yes: Regular Rate and Rhythm Respiratory: Yes: CTA Bilaterally Gastrointestinal: Yes: Normal Bowel Sounds Extremities: Yes: WNL Edema: No Peripheral Pulses WNL: Yes Neurological: Yes: Alert, Oriented Labs: CBC, BMP 12/13/18 05:35 12/12/18 05:20 INR, PTT INR 1.62 (0.83-1.09) H 12/10/18 15:07 Problem List - Problems (1) ALIYA (acute kidney injury) Code(s): N17.9 - ACUTE KIDNEY FAILURE, UNSPECIFIED (2) Altered mental status Assessment/Plan: doing well alert talking Code(s): R41.82 - ALTERED MENTAL STATUS, UNSPECIFIED (3) Elevated troponin I level Code(s): R79.89 - OTHER SPECIFIED ABNORMAL FINDINGS OF BLOOD CHEMISTRY (4) Pneumonia Code(s): J18.9 - PNEUMONIA, UNSPECIFIED ORGANISM (5) UTI (urinary tract infection) Assessment/Plan: on abx Code(s): N39.0 - URINARY TRACT INFECTION, SITE NOT SPECIFIED
[2018-12-13] MEDS: ATORVASTATIN CA 80 MG TABLET (FP) PO SCH (21:28)
[2018-12-13] MEDS: TAMSULOSIN HCL 0.4 MG CAP PO SCH (21:28)
[2018-12-14] MEDS: VANCOMYCIN 250 MG/5 ML ORAL SOLUTION PO SCH ×3 (06:11→17:45)
[2018-12-14 09:07] LABS: ALBUMIN 2.4 g/dl (3.4-5.0); BILIRUBIN,TOTAL 1.4 mg/dL (0.2-1); BLOOD UREA NITROGEN 24.7 mg/dL (7-18); CALCIUM 8.2 mg/dL (8.5-10.1); TOT PROT 5.9 g/dl (6.4-8.2)
[2018-12-14] MEDS: HEPARIN NA (PORCINE) 5,000 UNITS/ML 1ML VIAL SQ SCH ×2 (09:58→21:25)
[2018-12-14] MEDS: CARVEDILOL 12.5 MG TABLET (FP) PO SCH ×2 (09:58→21:25)
[2018-12-14] MEDS: ACETAMINOPHEN 325 MG TABLET (FP) PO PRN (09:58)
[2018-12-14] MEDS: LOSARTAN POTASSIUM 50 MG TABLET (FP) PO SCH (09:58)
[2018-12-14] MEDS: HALOPERIDOL 2 MG TABLET PO SCH ×2 (09:59→21:26)
--- NOTE | 2018-12-14 11:11 | PN ---
Progress Note, Physician History of Present Illness: Sensorium improved, denies chest pain or dyspnea. Diarrhea w/o abd pain improved on oral vanco, c. diff toxin negative. - Current Medication List Current Medications: Active Medications Acetaminophen (Tylenol -) 650 mg PO Q6H PRN PRN Reason: FEVER Last Admin: 12/14/18 09:58 Dose: 650 mg Atorvastatin Calcium (Lipitor -) 80 mg PO [facility] Last Admin: 12/13/18 21:28 Dose: 80 mg Carvedilol (Coreg -) 12.5 mg PO BID [facility] Last Admin: 12/14/18 09:58 Dose: 12.5 mg Haloperidol (Haldol -) 2 mg PO BID [facility] Last Admin: 12/14/18 09:59 Dose: 2 mg Heparin Sodium (Porcine) (Heparin -) 5,000 unit SQ BID [facility] Last Admin: 12/14/18 09:58 Dose: 5,000 unit Losartan Potassium (Cozaar -) 50 mg PO DAILY [facility] Last Admin: 12/14/18 09:58 Dose: 50 mg Tamsulosin HCl (Flomax -) 0.4 mg PO HS [facility] Last Admin: 12/13/18 21:28 Dose: 0.4 mg Vancomycin HCl (Vancomycin Oral Solution) 125 mg PO Q6HPO [facility] Last Admin: 12/14/18 06:11 Dose: 125 mg - Objective Vital Signs: Vital Signs Temperature 98.6 F 12/14/18 08:13 Pulse Rate 77 12/14/18 08:13 Respiratory Rate 18 12/14/18 08:15 Blood Pressure 137/81 12/14/18 08:13 O2 Sat by Pulse Oximetry (%) 99 12/14/18 08:15 Constitutional: Yes: No Distress, Calm, Thin Neck: Yes: Supple Cardiovascular: Yes: Regular Rate and Rhythm Respiratory: Yes: Regular, Diminished Gastrointestinal: Yes: Normal Bowel Sounds, Soft Edema: No Labs: CBC, BMP 12/13/18 05:35 12/14/18 06:50 INR, PTT INR 1.62 (0.83-1.09) H 12/10/18 15:07 - ....Imaging Ultrasound: Report Reviewed (Renal US: Neg for hydro) EKG: Report Reviewed Problem List - Problems (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 Code(s): I51.89 - OTHER ILL-DEFINED HEART DISEASES (2) ALIYA (acute kidney injury) Code(s): N17.9 - ACUTE KIDNEY FAILURE, UNSPECIFIED (3) Dementia Code(s): F03.90 - UNSPECIFIED DEMENTIA WITHOUT BEHAVIORAL DISTURBANCE Qualifiers: Dementia type: unspecified type (4) Elevated troponin I level Code(s): R79.89 - OTHER SPECIFIED ABNORMAL FINDINGS OF BLOOD CHEMISTRY (5) HTN (hypertension) Code(s): I10 - ESSENTIAL (PRIMARY) HYPERTENSION Qualifiers: Hypertension type: essential hypertension Qualified Code(s): I10 - Essential (primary) hypertension (6) Hypercholesterolemia Code(s): E78.00 - PURE HYPERCHOLESTEROLEMIA, UNSPECIFIED (7) Leukocytosis Code(s): D72.829 - ELEVATED WHITE BLOOD CELL COUNT, UNSPECIFIED (8) Transaminitis Code(s): R74.0 - NONSPEC ELEV OF LEVELS OF TRANSAMNS & LACTIC ACID DEHYDRGNSE Assessment/Plan 12/12/2018 Echo: Mildly dilated with moderate-severe decreased LVEF 35-40%, mild MR, TR, mild AR, mod ADAM, restrictive physiology 1. Shortness of breath, weakness with small pleural effusion improving 2/2 2. 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 HTN heart disease 4. Hypercholesterolemia 5. Organic brain syndrome/dementia 6. Leukocytosis and diarrhea resolving, ruled out c. diff 7. Abnormal LFT c/w hepatic congestion improving 8. Acute on CKD improving PLAN: 1. Continue Carvedilol 12.5 bid, Losartan 50 qd and Atorvastatin 80 qhs as tolerated 2. Not on aldosterone inhibition due to CKD 3. Ruled out c. diff. Continue empiric antibiotic coverage. Appreciate ID input 4. Troponin plateaued, WBC trending downwards 5. DVT prophylaxis
--- NOTE | 2018-12-14 12:22 | PN ---
Progress Note, Physician History of Present Illness: patient stable no new issues - Current Medication List Current Medications: Active Medications Acetaminophen (Tylenol -) 650 mg PO Q6H PRN PRN Reason: FEVER Last Admin: 12/14/18 09:58 Dose: 650 mg Atorvastatin Calcium (Lipitor -) 80 mg PO HS [facility] Last Admin: 12/13/18 21:28 Dose: 80 mg Carvedilol (Coreg -) 12.5 mg PO BID [facility] Last Admin: 12/14/18 09:58 Dose: 12.5 mg Haloperidol (Haldol -) 2 mg PO BID [facility] Last Admin: 12/14/18 09:59 Dose: 2 mg Heparin Sodium (Porcine) (Heparin -) 5,000 unit SQ BID [facility] Last Admin: 12/14/18 09:58 Dose: 5,000 unit Losartan Potassium (Cozaar -) 50 mg PO DAILY [facility] Last Admin: 12/14/18 09:58 Dose: 50 mg Tamsulosin HCl (Flomax -) 0.4 mg PO HS [facility] Last Admin: 12/13/18 21:28 Dose: 0.4 mg Vancomycin HCl (Vancomycin Oral Solution) 125 mg PO Q6HPO [facility] Last Admin: 12/14/18 12:18 Dose: 5 ml - Objective Vital Signs: Vital Signs Temperature 98.6 F 12/14/18 08:13 Pulse Rate 77 12/14/18 08:13 Respiratory Rate 18 12/14/18 08:15 Blood Pressure 137/81 12/14/18 08:13 O2 Sat by Pulse Oximetry (%) 99 12/14/18 08:15 Constitutional: Yes: No Distress, Calm Cardiovascular: Yes: S1, S2 Respiratory: Yes: Regular, CTA Bilaterally Gastrointestinal: Yes: Normal Bowel Sounds, Soft Musculoskeletal: Yes: WNL Extremities: Yes: WNL Neurological: Yes: Alert, Oriented Psychiatric: Yes: Alert, Oriented Labs: CBC, BMP 12/13/18 05:35 12/14/18 06:50 INR, PTT INR 1.62 (0.83-1.09) H 12/10/18 15:07 Assessment/Plan dirrhoea weakness uti leukocytosis plan will check wbc rest as per the team
[2018-12-14 14:00] LABS: HEMATOCRIT 31.7 % (35.4-49); HEMOGLOBIN 10.4 GM/dL (11.7-16.9); MCH 30.2 pg (25.7-33.7); MCHC 32.7 g/dl (32.0-35.9); MEAN CELL VOLUME 92.3 fl (80-96); MEAN PLT VOLUME 12.3 fl (7.5-11.1); PLATELET COUNT 164 K/MM3 (134-434); RBC 3.44 M/mm3 (4.00-5.60)
--- NOTE | 2018-12-14 15:52 | PN ---
Progress Note (short form) - Note Progress Note: RENAL Pt awake and alert denies complaints Last Vital Signs Temp Pulse Resp BP Pulse Ox 98.8 F 92 H 18 127/76 99 12/14/18 14:00 12/14/18 14:00 12/14/18 08:15 12/14/18 14:00 12/14/18 08:15 lungs clear cvs s1s2 rr abd soft ext + trace edema neuro alert CBC, BMP 12/14/18 13:27 12/14/18 06:50 Current Medications Generic Name Dose Route Start Last Admin Trade Name Freq PRN Reason Stop Dose Admin Acetaminophen 650 mg 12/10/18 20:42 12/14/18 09:58 Tylenol - PO 650 mg Q6H PRN Administration FEVER Atorvastatin Calcium 80 mg 12/10/18 22:00 12/13/18 21:28 Lipitor - PO 80 mg HS JONNY Administration Carvedilol 12.5 mg 12/10/18 22:00 12/14/18 09:58 Coreg - PO 12.5 mg BID JONNY Administration Haloperidol 2 mg 12/11/18 22:00 12/14/18 09:59 Haldol - PO 2 mg BID JONNY Administration Heparin Sodium (Porcine) 5,000 unit 12/10/18 22:00 12/14/18 09:58 Heparin - SQ 5,000 unit BID JONNY Administration Losartan Potassium 50 mg 12/11/18 10:00 12/14/18 09:58 Cozaar - PO 50 mg DAILY JONNY Administration Tamsulosin HCl 0.4 mg 12/10/18 22:00 12/13/18 21:28 Flomax - PO 0.4 mg HS JONNY Administration Vancomycin HCl 125 mg 12/12/18 18:00 12/14/18 12:18 Vancomycin Oral Solution PO 5 ml Q6HPO JONNY Administration Impression 1. probable CKD 2. HTN 3. CHF 4. weakness 5. dementia 6. normocytic anemia 7. UTI Plan - obtain outpt records - avoid nsaids - ?need for oral vanco -switch to ancef or cephalexin for uti -monitor MV
--- NOTE | 2018-12-14 19:27 | PN ---
Progress Note, Physician - Current Medication List Current Medications: Active Medications Acetaminophen (Tylenol -) 650 mg PO Q6H PRN PRN Reason: FEVER Last Admin: 12/14/18 09:58 Dose: 650 mg Atorvastatin Calcium (Lipitor -) 80 mg PO HS [facility] Last Admin: 12/13/18 21:28 Dose: 80 mg Carvedilol (Coreg -) 12.5 mg PO BID [facility] Last Admin: 12/14/18 09:58 Dose: 12.5 mg Haloperidol (Haldol -) 2 mg PO BID [facility] Last Admin: 12/14/18 09:59 Dose: 2 mg Heparin Sodium (Porcine) (Heparin -) 5,000 unit SQ BID [facility] Last Admin: 12/14/18 09:58 Dose: 5,000 unit Losartan Potassium (Cozaar -) 50 mg PO DAILY [facility] Last Admin: 12/14/18 09:58 Dose: 50 mg Tamsulosin HCl (Flomax -) 0.4 mg PO [facility] Last Admin: 12/13/18 21:28 Dose: 0.4 mg Vancomycin HCl (Vancomycin Oral Solution) 125 mg PO Q6HPO [facility] Last Admin: 12/14/18 17:45 Dose: 5 ml - Objective Vital Signs: Vital Signs Temperature 98.6 F 12/14/18 17:00 Pulse Rate 64 12/14/18 17:00 Respiratory Rate 20 12/14/18 17:00 Blood Pressure 115/60 12/14/18 17:00 O2 Sat by Pulse Oximetry (%) 99 12/14/18 08:15 Constitutional: Yes: Calm HENT: Yes: Atraumatic Neck: Yes: Supple Cardiovascular: Yes: Regular Rate and Rhythm Respiratory: Yes: CTA Bilaterally Gastrointestinal: Yes: Normal Bowel Sounds Extremities: Yes: WNL Edema: No Neurological: Yes: Alert, Oriented Labs: CBC, BMP 12/14/18 13:27 12/14/18 06:50 INR, PTT INR 1.62 (0.83-1.09) H 12/10/18 15:07 Problem List - Problems (1) ALIYA (acute kidney injury) Assessment/Plan: monitor improving renal consult Code(s): N17.9 - ACUTE KIDNEY FAILURE, UNSPECIFIED (2) Altered mental status Assessment/Plan: doing well alert talking Code(s): R41.82 - ALTERED MENTAL STATUS, UNSPECIFIED (3) Elevated troponin I level Code(s): R79.89 - OTHER SPECIFIED ABNORMAL FINDINGS OF BLOOD CHEMISTRY (4) Pneumonia Code(s): J18.9 - PNEUMONIA, UNSPECIFIED ORGANISM (5) UTI (urinary tract infection) Assessment/Plan: on abx cxs noted Code(s): N39.0 - URINARY TRACT INFECTION, SITE NOT SPECIFIED (6) HTN (hypertension) Assessment/Plan: on meds Code(s): I10 - ESSENTIAL (PRIMARY) HYPERTENSION Qualifiers: Hypertension type: essential hypertension Qualified Code(s): I10 - Essential (primary) hypertension (7) Hypercholesterolemia Assessment/Plan: on meds Code(s): E78.00 - PURE HYPERCHOLESTEROLEMIA, UNSPECIFIED
[2018-12-14] MEDS ORDERED: PT OWN MED DRAWER 7, Y5N ONE (21:24)
[2018-12-14] MEDS: TAMSULOSIN HCL 0.4 MG CAP PO SCH (21:25)
[2018-12-14] MEDS: ATORVASTATIN CA 80 MG TABLET (FP) PO SCH (21:26)
[2018-12-15] MEDS: VANCOMYCIN 250 MG/5 ML ORAL SOLUTION PO SCH ×3 (01:22→12:30)
[2018-12-15 07:44] LABS: BASO % 0.5 % (0-2.0); HEMATOCRIT 31.4 % (35.4-49); HEMOGLOBIN 10.1 GM/dL (11.7-16.9); LYMPH % 8.8 % (8-40); MCH 29.9 pg (25.7-33.7); MCHC 32.2 g/dl (32.0-35.9); MEAN CELL VOLUME 92.9 fl (80-96); MEAN PLT VOLUME 12.6 fl (7.5-11.1); MONO % 6.5 % (3.8-10.2); NEUT % 83.2 % (42.8-82.8); PLATELET COUNT 146 K/MM3 (134-434); RBC 3.38 M/mm3 (4.00-5.60); RDW 14.4 % (11.9-15.9); WHITE BLOOD COUNT 11.9 K/mm3 (4.0-10.0)
[2018-12-15 08:03] LABS: ALBUMIN 2.2 g/dl (3.4-5.0); BILIRUBIN,TOTAL 1.1 mg/dL (0.2-1); CREATININE 1.8 mg/dL (0.55-1.3); POTASSIUM 3.7 mmol/L (3.5-5.1); TOT PROT 5.7 g/dl (6.4-8.2)
[2018-12-15] MEDS: CARVEDILOL 12.5 MG TABLET (FP) PO SCH ×2 (10:20→21:06)
[2018-12-15] MEDS: HALOPERIDOL 2 MG TABLET PO SCH ×2 (10:20→21:06)
[2018-12-15] MEDS: LOSARTAN POTASSIUM 50 MG TABLET (FP) PO SCH (10:20)
[2018-12-15] MEDS: HEPARIN NA (PORCINE) 5,000 UNITS/ML 1ML VIAL SQ SCH ×2 (10:20→21:05)
--- NOTE | 2018-12-15 10:33 | PN ---
Progress Note (short form) - Note Progress Note: RENAL Pt awake and alert denies complaints Last Vital Signs Temp Pulse Resp BP Pulse Ox 98.9 F 63 20 136/58 L 99 12/15/18 05:16 12/15/18 05:16 12/15/18 05:16 12/15/18 05:16 12/14/18 21:00 lungs clear cvs s1s2 rr abd soft ext + trace edema neuro alert CBC, BMP 12/15/18 06:40 12/15/18 06:40 Current Medications Generic Name Dose Route Start Last Admin Trade Name Freq PRN Reason Stop Dose Admin Acetaminophen 650 mg 12/10/18 20:42 12/14/18 09:58 Tylenol - PO 650 mg Q6H PRN Administration FEVER Atorvastatin Calcium 80 mg 12/10/18 22:00 12/14/18 21:26 Lipitor - PO 80 mg HS JONNY Administration Carvedilol 12.5 mg 12/10/18 22:00 12/15/18 10:20 Coreg - PO 12.5 mg BID JONNY Administration Haloperidol 2 mg 12/11/18 22:00 12/15/18 10:20 Haldol - PO 2 mg BID JONNY Administration Heparin Sodium (Porcine) 5,000 unit 12/10/18 22:00 12/15/18 10:20 Heparin - SQ 5,000 unit BID JONNY Administration Losartan Potassium 50 mg 12/11/18 10:00 12/15/18 10:20 Cozaar - PO 50 mg DAILY JONNY Administration Tamsulosin HCl 0.4 mg 12/10/18 22:00 12/14/18 21:25 Flomax - PO 0.4 mg HS JONNY Administration Vancomycin HCl 125 mg 12/12/18 18:00 12/15/18 12:30 Vancomycin Oral Solution PO 5 ml Q6HPO JONNY Administration Impression 1. probable CKD 2. HTN 3. CHF 4. weakness 5. dementia 6. normocytic anemia 7. UTI 8 ALIYA improved with robin Plan - continue robin drainage - avoid nsaids - urology follow up -monitor MV
--- NOTE | 2018-12-15 13:06 | PN ---
Progress Note, Physician Chief Complaint: Events noted Not in distress History of Present Illness: Patient was seen and examined. Awake and alert. Chart was reviewed Denies chest pain, SOB or palpitations - Current Medication List Current Medications: Active Medications Acetaminophen (Tylenol -) 650 mg PO Q6H PRN PRN Reason: FEVER Last Admin: 12/14/18 09:58 Dose: 650 mg Atorvastatin Calcium (Lipitor -) 80 mg PO [facility] Last Admin: 12/14/18 21:26 Dose: 80 mg Carvedilol (Coreg -) 12.5 mg PO BID [facility] Last Admin: 12/15/18 10:20 Dose: 12.5 mg Haloperidol (Haldol -) 2 mg PO BID [facility] Last Admin: 12/15/18 10:20 Dose: 2 mg Heparin Sodium (Porcine) (Heparin -) 5,000 unit SQ BID [facility] Last Admin: 12/15/18 10:20 Dose: 5,000 unit Losartan Potassium (Cozaar -) 50 mg PO DAILY [facility] Last Admin: 12/15/18 10:20 Dose: 50 mg Tamsulosin HCl (Flomax -) 0.4 mg PO [facility] Last Admin: 12/14/18 21:25 Dose: 0.4 mg Vancomycin HCl (Vancomycin Oral Solution) 125 mg PO Q6HPO [facility] Last Admin: 12/15/18 12:30 Dose: 5 ml - Objective Vital Signs: Vital Signs Temperature 98.9 F 12/15/18 05:16 Pulse Rate 63 12/15/18 05:16 Respiratory Rate 20 12/15/18 05:16 Blood Pressure 136/58 L 12/15/18 05:16 O2 Sat by Pulse Oximetry (%) 99 12/14/18 21:00 Neck: Yes: Supple Cardiovascular: Yes: Regular Rate and Rhythm, S1, S2 Respiratory: Yes: Diminished Gastrointestinal: Yes: Normal Bowel Sounds, Soft. No: Tenderness Edema: No Additional Findings/Remarks: - Review of Systems Constitutional: denies: Chills, Fever Cardiovascular: denies Shortness of Breath. denies: Chest Pain, Palpitations Respiratory: denies Cough, SOB, SOB on Exertion. denies: Hemoptysis, Orthopnea , PND Gastrointestinal: denies: Abdominal Pain, Constipation, Diarrhea, Melena, Nausea , Rectal Bleeding, Vomiting Genitourinary: denies: Dysuria, Hematuria Musculoskeletal: denies: Back Pain, Joint Pain Neurological: denies: Dizziness, Headache, Seizure, Syncope Labs: CBC, BMP 12/15/18 06:40 12/15/18 06:40 Problem List - Problems (1) HTN (hypertension) Code(s): I10 - ESSENTIAL (PRIMARY) HYPERTENSION Qualifiers: Hypertension type: essential hypertension Qualified Code(s): I10 - Essential (primary) hypertension (2) Hypercholesterolemia Code(s): E78.00 - PURE HYPERCHOLESTEROLEMIA, UNSPECIFIED (3) Dementia Code(s): F03.90 - UNSPECIFIED DEMENTIA WITHOUT BEHAVIORAL DISTURBANCE Qualifiers: Dementia type: unspecified type (4) ALIYA (acute kidney injury) Code(s): N17.9 - ACUTE KIDNEY FAILURE, UNSPECIFIED (5) Altered mental status Code(s): R41.82 - ALTERED MENTAL STATUS, UNSPECIFIED (6) Elevated troponin I level Code(s): R79.89 - OTHER SPECIFIED ABNORMAL FINDINGS OF BLOOD CHEMISTRY (7) Leukocytosis Code(s): D72.829 - ELEVATED WHITE BLOOD CELL COUNT, UNSPECIFIED (8) Transaminitis Code(s): R74.0 - NONSPEC ELEV OF LEVELS OF TRANSAMNS & LACTIC ACID DEHYDRGNSE Assessment/Plan 1. Generalized weakness 2. Shortness of breath with small pleural effusion 3. HTN 4. Hypercholesterolemia 5. Organic brain syndrome/dementia 6. Leukocytosis ? sepsis 7. Demand ischemia 8. Abnormal LFT with hepatic congestion 9. ALIYA/CKD PLAN: 1. Continue Carvedilol 12.5 mg BID, Losartan 50 mg QD and Atorvastatin 80 mg QHS as tolerated 2. Continue empiric antibiotic coverage. 3. Troponin plateaued 4. DVT prophylaxis Further plans are to follow Lukasz Perez MD
--- NOTE | 2018-12-15 14:28 | PN ---
Progress Note, Physician History of Present Illness: stable no new issues no dirrhoea wbc trending down no fevers today - Current Medication List Current Medications: Active Medications Acetaminophen (Tylenol -) 650 mg PO Q6H PRN PRN Reason: FEVER Last Admin: 12/14/18 09:58 Dose: 650 mg Atorvastatin Calcium (Lipitor -) 80 mg PO HS [facility] Last Admin: 12/14/18 21:26 Dose: 80 mg Carvedilol (Coreg -) 12.5 mg PO BID [facility] Last Admin: 12/15/18 10:20 Dose: 12.5 mg Haloperidol (Haldol -) 2 mg PO BID [facility] Last Admin: 12/15/18 10:20 Dose: 2 mg Heparin Sodium (Porcine) (Heparin -) 5,000 unit SQ BID [facility] Last Admin: 12/15/18 10:20 Dose: 5,000 unit Losartan Potassium (Cozaar -) 50 mg PO DAILY [facility] Last Admin: 12/15/18 10:20 Dose: 50 mg Tamsulosin HCl (Flomax -) 0.4 mg PO [facility] Last Admin: 12/14/18 21:25 Dose: 0.4 mg - Objective Vital Signs: Vital Signs Temperature 98.9 F 12/15/18 05:16 Pulse Rate 63 12/15/18 05:16 Respiratory Rate 20 12/15/18 05:16 Blood Pressure 136/58 L 12/15/18 05:16 O2 Sat by Pulse Oximetry (%) 99 12/14/18 21:00 Constitutional: Yes: No Distress, Calm Cardiovascular: Yes: S1, S2 Respiratory: Yes: Regular, CTA Bilaterally Gastrointestinal: Yes: Normal Bowel Sounds, Soft Genitourinary: Yes: Jeffries Present Musculoskeletal: Yes: WNL Extremities: Yes: WNL Neurological: Yes: Alert, Oriented Psychiatric: Yes: Alert, Oriented Labs: CBC, BMP 12/15/18 06:40 12/15/18 06:40 INR, PTT INR 1.62 (0.83-1.09) H 12/10/18 15:07 Assessment/Plan dirrhoea weakness uti leukocytosis plan wbc trnding down all cx reports noted will stop oral vanco monitor wbc rest as per the team
[2018-12-15] MEDS: ATORVASTATIN CA 80 MG TABLET (FP) PO SCH (21:06)
[2018-12-15] MEDS: TAMSULOSIN HCL 0.4 MG CAP PO SCH (21:06)
--- NOTE | 2018-12-15 21:37 | PN ---
Progress Note, Physician - Current Medication List Current Medications: Active Medications Acetaminophen (Tylenol -) 650 mg PO Q6H PRN PRN Reason: FEVER Last Admin: 12/14/18 09:58 Dose: 650 mg Atorvastatin Calcium (Lipitor -) 80 mg PO HS [facility] Last Admin: 12/15/18 21:06 Dose: 80 mg Carvedilol (Coreg -) 12.5 mg PO BID [facility] Last Admin: 12/15/18 21:06 Dose: 12.5 mg Haloperidol (Haldol -) 2 mg PO BID [facility] Last Admin: 12/15/18 21:06 Dose: 2 mg Heparin Sodium (Porcine) (Heparin -) 5,000 unit SQ BID [facility] Last Admin: 12/15/18 21:05 Dose: 5,000 unit Losartan Potassium (Cozaar -) 50 mg PO DAILY [facility] Last Admin: 12/15/18 10:20 Dose: 50 mg Tamsulosin HCl (Flomax -) 0.4 mg PO HS [facility] Last Admin: 12/15/18 21:06 Dose: 0.4 mg - Objective Vital Signs: Vital Signs Temperature 98.3 F 12/15/18 14:00 Pulse Rate 64 12/15/18 14:00 Respiratory Rate 20 12/15/18 20:26 Blood Pressure 137/91 12/15/18 14:00 O2 Sat by Pulse Oximetry (%) 95 12/15/18 20:26 Labs: CBC, BMP 12/15/18 06:40 12/15/18 06:40 INR, PTT INR 1.62 (0.83-1.09) H 12/10/18 15:07
[2018-12-16 07:36] LABS: HEMATOCRIT 32.3 % (35.4-49); HEMOGLOBIN 10.7 GM/dL (11.7-16.9); MCH 31.3 pg (25.7-33.7); MCHC 33.3 g/dl (32.0-35.9); MEAN CELL VOLUME 93.9 fl (80-96); MEAN PLT VOLUME 13.1 fl (7.5-11.1); PLATELET COUNT 184 K/MM3 (134-434); RBC 3.43 M/mm3 (4.00-5.60); RDW 14.2 % (11.9-15.9); WHITE BLOOD COUNT 11.6 K/mm3 (4.0-10.0)
[2018-12-16] MEDS: CARVEDILOL 12.5 MG TABLET (FP) PO SCH ×2 (09:16→22:04)
[2018-12-16] MEDS: HEPARIN NA (PORCINE) 5,000 UNITS/ML 1ML VIAL SQ SCH ×2 (09:16→22:04)
[2018-12-16] MEDS: LOSARTAN POTASSIUM 50 MG TABLET (FP) PO SCH (09:16)
[2018-12-16] MEDS: HALOPERIDOL 2 MG TABLET PO SCH (09:17)
--- NOTE | 2018-12-16 10:28 | PN ---
Progress Note, Physician Chief Complaint: Events noted Not in distress History of Present Illness: Patient was seen and examined. Awake and alert. Chart was reviewed Denies chest pain, SOB or palpitations - Current Medication List Current Medications: Active Medications Acetaminophen (Tylenol -) 650 mg PO Q6H PRN PRN Reason: FEVER Last Admin: 12/14/18 09:58 Dose: 650 mg Atorvastatin Calcium (Lipitor -) 80 mg PO [facility] Last Admin: 12/15/18 21:06 Dose: 80 mg Carvedilol (Coreg -) 12.5 mg PO BID [facility] Last Admin: 12/16/18 09:16 Dose: 12.5 mg Haloperidol (Haldol -) 2 mg PO BID [facility] Last Admin: 12/16/18 09:17 Dose: 2 mg Heparin Sodium (Porcine) (Heparin -) 5,000 unit SQ BID [facility] Last Admin: 12/16/18 09:16 Dose: 5,000 unit Losartan Potassium (Cozaar -) 50 mg PO DAILY [facility] Last Admin: 12/16/18 09:16 Dose: 50 mg Tamsulosin HCl (Flomax -) 0.4 mg PO [facility] Last Admin: 12/15/18 21:06 Dose: 0.4 mg - Objective Vital Signs: Vital Signs Temperature 98 F 12/16/18 09:00 Pulse Rate 70 12/16/18 09:00 Respiratory Rate 18 12/16/18 09:00 Blood Pressure 126/70 12/16/18 09:00 O2 Sat by Pulse Oximetry (%) 95 12/15/18 20:26 Eyes: Yes: PERRL HENT: Yes: Atraumatic Neck: Yes: Supple Cardiovascular: Yes: Regular Rate and Rhythm, S1, S2 Respiratory: Yes: Diminished Gastrointestinal: Yes: Normal Bowel Sounds, Soft. No: Tenderness Edema: No Additional Findings/Remarks: - Review of Systems Constitutional: denies: Chills, Fever Cardiovascular: denies Shortness of Breath. denies: Chest Pain, Palpitations Respiratory: denies Cough, SOB, SOB on Exertion. denies: Hemoptysis, Orthopnea , PND Gastrointestinal: denies: Abdominal Pain, Constipation, Diarrhea, Melena, Nausea , Rectal Bleeding, Vomiting Genitourinary: denies: Dysuria, Hematuria Musculoskeletal: denies: Back Pain, Joint Pain Neurological: denies: Dizziness, Headache, Seizure, Syncope Labs: CBC, BMP 12/16/18 05:10 12/15/18 06:40 Problem List - Problems (1) HTN (hypertension) Code(s): I10 - ESSENTIAL (PRIMARY) HYPERTENSION Qualifiers: Hypertension type: essential hypertension Qualified Code(s): I10 - Essential (primary) hypertension (2) Hypercholesterolemia Code(s): E78.00 - PURE HYPERCHOLESTEROLEMIA, UNSPECIFIED (3) Dementia Code(s): F03.90 - UNSPECIFIED DEMENTIA WITHOUT BEHAVIORAL DISTURBANCE Qualifiers: Dementia type: unspecified type (4) ALIYA (acute kidney injury) Code(s): N17.9 - ACUTE KIDNEY FAILURE, UNSPECIFIED (5) Altered mental status Code(s): R41.82 - ALTERED MENTAL STATUS, UNSPECIFIED (6) Elevated troponin I level Code(s): R79.89 - OTHER SPECIFIED ABNORMAL FINDINGS OF BLOOD CHEMISTRY (7) Leukocytosis Code(s): D72.829 - ELEVATED WHITE BLOOD CELL COUNT, UNSPECIFIED (8) Transaminitis Code(s): R74.0 - NONSPEC ELEV OF LEVELS OF TRANSAMNS & LACTIC ACID DEHYDRGNSE Assessment/Plan 1. Generalized weakness 2. Shortness of breath with small pleural effusion 3. HTN 4. Hypercholesterolemia 5. Organic brain syndrome/dementia 6. Leukocytosis ? sepsis 7. Demand ischemia 8. Abnormal LFT with hepatic congestion 9. ALIYA/CKD 10 NSVT PLAN: 1. Continue Carvedilol 12.5 mg BID, Losartan 50 mg QD and Atorvastatin 80 mg QHS as tolerated 2. Continue empiric antibiotic coverage. 3. DVT prophylaxis Further plans are to follow Lukasz Perez MD
--- NOTE | 2018-12-16 11:26 | PN ---
Progress Note, Physician History of Present Illness: stable no new issues foleys cme out was reinserted as patient could not pass urine - Current Medication List Current Medications: Active Medications Acetaminophen (Tylenol -) 650 mg PO Q6H PRN PRN Reason: FEVER Last Admin: 12/14/18 09:58 Dose: 650 mg Atorvastatin Calcium (Lipitor -) 80 mg PO HS [facility] Last Admin: 12/15/18 21:06 Dose: 80 mg Carvedilol (Coreg -) 12.5 mg PO BID [facility] Last Admin: 12/16/18 09:16 Dose: 12.5 mg Haloperidol (Haldol -) 2 mg PO BID [facility] Last Admin: 12/16/18 09:17 Dose: 2 mg Heparin Sodium (Porcine) (Heparin -) 5,000 unit SQ BID [facility] Last Admin: 12/16/18 09:16 Dose: 5,000 unit Losartan Potassium (Cozaar -) 50 mg PO DAILY [facility] Last Admin: 12/16/18 09:16 Dose: 50 mg Tamsulosin HCl (Flomax -) 0.4 mg PO [facility] Last Admin: 12/15/18 21:06 Dose: 0.4 mg - Objective Vital Signs: Vital Signs Temperature 98 F 12/16/18 09:00 Pulse Rate 70 12/16/18 09:00 Respiratory Rate 18 12/16/18 09:00 Blood Pressure 126/70 12/16/18 09:00 O2 Sat by Pulse Oximetry (%) 95 12/15/18 20:26 Constitutional: Yes: No Distress, Calm Cardiovascular: Yes: S1, S2 Respiratory: Yes: Regular, CTA Bilaterally Gastrointestinal: Yes: Normal Bowel Sounds, Soft Genitourinary: Yes: Jeffries Present Musculoskeletal: Yes: WNL Extremities: Yes: WNL Neurological: Yes: Alert, Oriented Psychiatric: Yes: Alert, Oriented Labs: CBC, BMP 12/16/18 05:10 12/15/18 06:40 INR, PTT INR 1.62 (0.83-1.09) H 12/10/18 15:07 Assessment/Plan dirrhoea weakness uti leukocytosis plan wbc trending down all cx reports noted continue to monitor rest as per the team
--- NOTE | 2018-12-16 16:09 | PN ---
Progress Note (short form) - Note Progress Note: RENAL Pt awake and alert denies complaints Last Vital Signs Temp Pulse Resp BP Pulse Ox 98.8 F 64 20 138/81 95 12/16/18 14:00 12/16/18 14:00 12/16/18 14:00 12/16/18 14:00 12/15/18 20:26 lungs clear cvs s1s2 rr abd soft ext + trace edema neuro alert CBC, BMP 12/15/18 06:40 12/15/18 06:40 Current Medications Generic Name Dose Route Start Last Admin Trade Name Freq PRN Reason Stop Dose Admin Acetaminophen 650 mg 12/10/18 20:42 12/14/18 09:58 Tylenol - PO 650 mg Q6H PRN Administration FEVER Atorvastatin Calcium 80 mg 12/10/18 22:00 12/15/18 21:06 Lipitor - PO 80 mg HS JONNY Administration Carvedilol 12.5 mg 12/10/18 22:00 12/16/18 09:16 Coreg - PO 12.5 mg BID JONNY Administration Haloperidol 2 mg 12/11/18 22:00 12/16/18 09:17 Haldol - PO 2 mg BID JONNY Administration Heparin Sodium (Porcine) 5,000 unit 12/10/18 22:00 12/16/18 09:16 Heparin - SQ 5,000 unit BID JONNY Administration Losartan Potassium 50 mg 12/11/18 10:00 12/16/18 09:16 Cozaar - PO 50 mg DAILY JONNY Administration Tamsulosin HCl 0.4 mg 12/10/18 22:00 12/15/18 21:06 Flomax - PO 0.4 mg HS JONNY Administration Impression 1. probable CKD 2. HTN 3. CHF 4. weakness 5. dementia 6. normocytic anemia 7. UTI 8 ALIYA improved with robin Plan - continue robin drainage - avoid nsaids - urology follow up -monitor MV
[2018-12-16] MEDS ORDERED: PT OWN MED DRAWER 7, Y5N ONE (18:30)
[2018-12-16] MEDS ORDERED: HALOPERIDOL 2 MG TABLET PO ONE (18:45)
[2018-12-16] MEDS: TAMSULOSIN HCL 0.4 MG CAP PO SCH (22:04)
[2018-12-16] MEDS: ATORVASTATIN CA 80 MG TABLET (FP) PO SCH (22:04)
--- NOTE | 2018-12-16 22:30 | PN ---
Progress Note, Physician History of Present Illness: Pt seems more confused today - Current Medication List Current Medications: Active Medications Acetaminophen (Tylenol -) 650 mg PO Q6H PRN PRN Reason: FEVER Last Admin: 12/14/18 09:58 Dose: 650 mg Atorvastatin Calcium (Lipitor -) 80 mg PO HS [facility] Last Admin: 12/16/18 22:04 Dose: 80 mg Carvedilol (Coreg -) 12.5 mg PO BID [facility] Last Admin: 12/16/18 22:04 Dose: 12.5 mg Haloperidol (Haldol -) 2 mg PO BID [facility] Last Admin: 12/16/18 09:17 Dose: 2 mg Heparin Sodium (Porcine) (Heparin -) 5,000 unit SQ BID [facility] Last Admin: 12/16/18 22:04 Dose: 5,000 unit Losartan Potassium (Cozaar -) 50 mg PO DAILY [facility] Last Admin: 12/16/18 09:16 Dose: 50 mg Tamsulosin HCl (Flomax -) 0.4 mg PO [facility] Last Admin: 12/16/18 22:04 Dose: 0.4 mg - Objective Vital Signs: Vital Signs Temperature 98.0 F 12/16/18 18:00 Pulse Rate 68 12/16/18 18:00 Respiratory Rate 20 12/16/18 18:00 Blood Pressure 148/92 12/16/18 18:00 O2 Sat by Pulse Oximetry (%) 95 12/16/18 20:54 Neck: Yes: WNL, Supple Cardiovascular: Yes: WNL, Regular Rate and Rhythm Respiratory: Yes: WNL, Regular, CTA Bilaterally Gastrointestinal: Yes: WNL, Normal Bowel Sounds, Soft Edema: Yes Edema: LLE: Trace, RLE: Trace Labs: CBC, BMP 12/16/18 05:10 12/15/18 06:40 INR, PTT INR 1.62 (0.83-1.09) H 12/10/18 15:07 Problem List - Problems (1) Leukocytosis Assessment/Plan: WBC decreasing Code(s): D72.829 - ELEVATED WHITE BLOOD CELL COUNT, UNSPECIFIED (2) ALIYA (acute kidney injury) Assessment/Plan: Jeffries has been removed Cont to monitor urine output Monitor labs Code(s): N17.9 - ACUTE KIDNEY FAILURE, UNSPECIFIED (3) Dementia Assessment/Plan: Cont haldolol Code(s): F03.90 - UNSPECIFIED DEMENTIA WITHOUT BEHAVIORAL DISTURBANCE Qualifiers: Dementia type: unspecified type (4) Elevated troponin I level Assessment/Plan: Due to demand ischemia Code(s): R79.89 - OTHER SPECIFIED ABNORMAL FINDINGS OF BLOOD CHEMISTRY (5) HTN (hypertension) Assessment/Plan: BP stable Code(s): I10 - ESSENTIAL (PRIMARY) HYPERTENSION Qualifiers: Hypertension type: essential hypertension Qualified Code(s): I10 - Essential (primary) hypertension (6) Hypercholesterolemia Code(s): E78.00 - PURE HYPERCHOLESTEROLEMIA, UNSPECIFIED (7) Transaminitis Code(s): R74.0 - NONSPEC ELEV OF LEVELS OF TRANSAMNS & LACTIC ACID DEHYDRGNSE
--- NOTE | 2018-12-17 09:09 | PN ---
Progress Note, Physician History of Present Illness: Denies chest pain, SOB or palpitations, resting comfortably. - Current Medication List Current Medications: Active Medications Acetaminophen (Tylenol -) 650 mg PO Q6H PRN PRN Reason: FEVER Last Admin: 12/14/18 09:58 Dose: 650 mg Atorvastatin Calcium (Lipitor -) 80 mg PO [facility] Last Admin: 12/16/18 22:04 Dose: 80 mg Carvedilol (Coreg -) 12.5 mg PO BID [facility] Last Admin: 12/16/18 22:04 Dose: 12.5 mg Haloperidol (Haldol -) 2 mg PO BID [facility] Last Admin: 12/16/18 09:17 Dose: 2 mg Heparin Sodium (Porcine) (Heparin -) 5,000 unit SQ BID [facility] Last Admin: 12/16/18 22:04 Dose: 5,000 unit Losartan Potassium (Cozaar -) 50 mg PO DAILY [facility] Last Admin: 12/16/18 09:16 Dose: 50 mg Tamsulosin HCl (Flomax -) 0.4 mg PO [facility] Last Admin: 12/16/18 22:04 Dose: 0.4 mg - Objective Vital Signs: Vital Signs Temperature 99.4 F 12/17/18 06:00 Pulse Rate 86 12/17/18 06:00 Respiratory Rate 18 12/17/18 06:00 Blood Pressure 153/84 12/17/18 06:00 O2 Sat by Pulse Oximetry (%) 95 12/16/18 20:54 Constitutional: Yes: No Distress, Calm Neck: Yes: Supple Cardiovascular: Yes: Regular Rate and Rhythm Respiratory: Yes: Regular, Diminished Gastrointestinal: Yes: Normal Bowel Sounds, Soft Edema: No Labs: CBC, BMP 12/16/18 05:10 12/15/18 06:40 INR, PTT INR 1.62 (0.83-1.09) H 12/10/18 15:07 Problem List - Problems (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 Code(s): I51.89 - OTHER ILL-DEFINED HEART DISEASES (2) ALIYA (acute kidney injury) Code(s): N17.9 - ACUTE KIDNEY FAILURE, UNSPECIFIED (3) Dementia Code(s): F03.90 - UNSPECIFIED DEMENTIA WITHOUT BEHAVIORAL DISTURBANCE Qualifiers: Dementia type: unspecified type (4) Elevated troponin I level Code(s): R79.89 - OTHER SPECIFIED ABNORMAL FINDINGS OF BLOOD CHEMISTRY (5) HTN (hypertension) Code(s): I10 - ESSENTIAL (PRIMARY) HYPERTENSION Qualifiers: Hypertension type: essential hypertension Qualified Code(s): I10 - Essential (primary) hypertension (6) Hypercholesterolemia Code(s): E78.00 - PURE HYPERCHOLESTEROLEMIA, UNSPECIFIED (7) Leukocytosis Code(s): D72.829 - ELEVATED WHITE BLOOD CELL COUNT, UNSPECIFIED (8) Transaminitis Code(s): R74.0 - NONSPEC ELEV OF LEVELS OF TRANSAMNS & LACTIC ACID DEHYDRGNSE Assessment/Plan 12/12/2018 Echo: Mildly dilated with moderate-severe decreased LVEF 35-40%, mild MR, TR, mild AR, mod ADAM, restrictive physiology 1. Shortness of breath, weakness with small pleural effusion improving 2/2 2. 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 HTN heart disease not at goal BP 4. Hypercholesterolemia 5. Organic brain syndrome/dementia 6. Leukocytosis and diarrhea resolving, ruled out c. diff 7. Abnormal LFT c/w hepatic congestion improving 8. Acute on CKD improving PLAN: 1. Increase Carvedilol 25 bid, Losartan 50 qd and Atorvastatin 80 qhs as tolerated 2. Not on aldosterone inhibition due to CKD, robin drainage, voiding trial 3. Off empiric antibiotic coverage 4. Troponin plateaued, WBC trending downwards 5. DVT prophylaxis
[2018-12-17] MEDS: LOSARTAN POTASSIUM 50 MG TABLET (FP) PO SCH (09:37)
[2018-12-17] MEDS: HEPARIN NA (PORCINE) 5,000 UNITS/ML 1ML VIAL SQ SCH (09:37)
[2018-12-17] MEDS: CARVEDILOL 12.5 MG TABLET (FP) PO SCH (09:37)
[2018-12-17] MEDS: HALOPERIDOL 2 MG TABLET PO SCH ×2 (09:38→22:05)
--- NOTE | 2018-12-17 12:24 | PN ---
Progress Note, Physician History of Present Illness: stable now was confused in the morning pulled out foleys incontinent since then - Current Medication List Current Medications: Active Medications Acetaminophen (Tylenol -) 650 mg PO Q6H PRN PRN Reason: FEVER Last Admin: 12/14/18 09:58 Dose: 650 mg Atorvastatin Calcium (Lipitor -) 80 mg PO HS [facility] Last Admin: 12/16/18 22:04 Dose: 80 mg Carvedilol (Coreg -) 25 mg PO BID [facility] Haloperidol (Haldol -) 2 mg PO BID [facility] Last Admin: 12/17/18 09:38 Dose: 2 mg Heparin Sodium (Porcine) (Heparin -) 5,000 unit SQ BID [facility] Last Admin: 12/17/18 09:37 Dose: 5,000 unit Losartan Potassium (Cozaar -) 50 mg PO DAILY [facility] Last Admin: 12/17/18 09:37 Dose: 50 mg Tamsulosin HCl (Flomax -) 0.[address] [facility] Last Admin: 12/16/18 22:04 Dose: 0.4 mg - Objective Vital Signs: Vital Signs Temperature 98.6 F 12/17/18 09:00 Pulse Rate 80 12/17/18 09:00 Respiratory Rate 18 12/17/18 09:00 Blood Pressure 156/90 12/17/18 09:00 O2 Sat by Pulse Oximetry (%) 96 12/17/18 09:00 Constitutional: Yes: No Distress, Calm Cardiovascular: Yes: S1, S2 Respiratory: Yes: Regular, CTA Bilaterally Gastrointestinal: Yes: Normal Bowel Sounds, Soft Genitourinary: Yes: Incontinence Musculoskeletal: Yes: WNL Extremities: Yes: WNL Neurological: Yes: Alert, Other (was confused) Psychiatric: Yes: Alert Labs: CBC, BMP 12/16/18 05:10 12/15/18 06:40 INR, PTT INR 1.62 (0.83-1.09) H 12/10/18 15:07 Assessment/Plan dirrhoea weakness uti leukocytosis plan will check wbc today rest continue current mgmt
[2018-12-17 14:14] LABS: HEMATOCRIT 31.4 % (35.4-49); HEMOGLOBIN 10.3 GM/dL (11.7-16.9); MCHC 32.8 g/dl (32.0-35.9); MEAN CELL VOLUME 91.5 fl (80-96); MEAN PLT VOLUME 11.7 fl (7.5-11.1); PLATELET COUNT 204 K/MM3 (134-434); RBC 3.43 M/mm3 (4.00-5.60); RDW 14.1 % (11.9-15.9); WHITE BLOOD COUNT 25.5 K/mm3 (4.0-10.0)
--- NOTE | 2018-12-17 15:26 | PN ---
Progress Note, Physician History of Present Illness: Pt seen and examined at bedside. He denies shortness of breath. He is awake and appears comfortable. - Current Medication List Current Medications: Active Medications Acetaminophen (Tylenol -) 650 mg PO Q6H PRN PRN Reason: FEVER Last Admin: 12/14/18 09:58 Dose: 650 mg Atorvastatin Calcium (Lipitor -) 80 mg PO HS [facility] Last Admin: 12/16/18 22:04 Dose: 80 mg Carvedilol (Coreg -) 25 mg PO BID [facility] Haloperidol (Haldol -) 2 mg PO BID [facility] Last Admin: 12/17/18 09:38 Dose: 2 mg Heparin Sodium (Porcine) (Heparin -) 5,000 unit SQ BID [facility] Last Admin: 12/17/18 09:37 Dose: 5,000 unit Losartan Potassium (Cozaar -) 50 mg PO DAILY [facility] Last Admin: 12/17/18 09:37 Dose: 50 mg Tamsulosin HCl (Flomax -) 0.4 mg PO [facility] Last Admin: 12/16/18 22:04 Dose: 0.4 mg - Objective Vital Signs: Vital Signs Temperature 98.6 F 12/17/18 09:00 Pulse Rate 80 12/17/18 09:00 Respiratory Rate 18 12/17/18 09:00 Blood Pressure 156/90 12/17/18 09:00 O2 Sat by Pulse Oximetry (%) 96 12/17/18 09:00 Constitutional: Yes: Calm Eyes: Yes: Conjunctiva Clear HENT: Yes: Atraumatic Cardiovascular: Yes: S1, S2 Respiratory: Yes: CTA Bilaterally Gastrointestinal: Yes: Soft Genitourinary: Yes: WNL Musculoskeletal: Yes: WNL Edema: No Neurological: Yes: Confusion Labs: CBC, BMP 12/17/18 13:50 12/15/18 06:40 INR, PTT INR 1.62 (0.83-1.09) H 12/10/18 15:07 Problem List - Problems (1) ALIYA (acute kidney injury) Code(s): N17.9 - ACUTE KIDNEY FAILURE, UNSPECIFIED (2) Altered mental status Code(s): R41.82 - ALTERED MENTAL STATUS, UNSPECIFIED Assessment/Plan Current Medications Generic Name Dose Route Start Last Admin Trade Name Freq PRN Reason Stop Dose Admin Acetaminophen 650 mg 12/10/18 20:42 12/14/18 09:58 Tylenol - PO 650 mg Q6H PRN Administration FEVER Atorvastatin Calcium 80 mg 12/10/18 22:00 12/16/18 22:04 Lipitor - PO 80 mg HS JONNY Administration Carvedilol 25 mg 12/17/18 22:00 Coreg - PO BID JONNY Haloperidol 2 mg 12/11/18 22:00 12/17/18 09:38 Haldol - PO 2 mg BID JONNY Administration Heparin Sodium (Porcine) 5,000 unit 12/10/18 22:00 12/17/18 09:37 Heparin - SQ 5,000 unit BID JONNY Administration Losartan Potassium 50 mg 12/11/18 10:00 12/17/18 09:37 Cozaar - PO 50 mg DAILY JONNY Administration Tamsulosin HCl 0.4 mg 12/10/18 22:00 12/16/18 22:04 Flomax - PO 0.4 mg HS JONNY Administration Impression 1. ALIYA vs CKD 2. HTN 3. CHF 4. weakness 5. 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
[2018-12-17] MEDS ORDERED: DEXTROSE 5%-WATER - 50 ML IVPB ONE (15:33)
[2018-12-17] MEDS ORDERED: PIPERACILLIN/TAZOBACTAM 2.25 GM VIAL IVPB ONE (15:33)
[2018-12-17] MEDS: PIPERACILLIN/TAZOB 2.25 GM 2.25 GM in DEXTROSE 5%-WATER - 50 ML IVPB SCH (15:41)
--- NOTE | 2018-12-17 18:18 | PN ---
Progress Note, Physician - Current Medication List Current Medications: Active Medications Acetaminophen (Tylenol -) 650 mg PO Q6H PRN PRN Reason: FEVER Last Admin: 12/14/18 09:58 Dose: 650 mg Atorvastatin Calcium (Lipitor -) 80 mg PO HS [facility] Last Admin: 12/16/18 22:04 Dose: 80 mg Carvedilol (Coreg -) 25 mg PO BID [facility] Haloperidol (Haldol -) 2 mg PO BID [facility] Last Admin: 12/17/18 09:38 Dose: 2 mg Heparin Sodium (Porcine) (Heparin -) 5,000 unit SQ BID [facility] Last Admin: 12/17/18 09:37 Dose: 5,000 unit Piperacillin Sod/Tazobactam (Sod 2.25 gm/ Dextrose) 50 mls @ 100 mls/hr IVPB Q8H-IV [facility] Last Admin: 12/17/18 15:41 Dose: 100 mls/hr Metronidazole (Flagyl 500mg Premixed Ivpb -) 500 mg in 100 mls @ 100 mls/hr IVPB Q8H-IV [facility] Last Admin: 12/17/18 15:41 Dose: 100 mls/hr Losartan Potassium (Cozaar -) 50 mg PO DAILY [facility] Last Admin: 12/17/18 09:37 Dose: 50 mg Tamsulosin HCl (Flomax -) 0.4 mg PO [facility] Last Admin: 12/16/18 22:04 Dose: 0.4 mg - Objective Vital Signs: Vital Signs Temperature 99.2 F 12/17/18 14:05 Pulse Rate 77 12/17/18 14:05 Respiratory Rate 24 H 12/17/18 14:05 Blood Pressure 131/86 12/17/18 14:05 O2 Sat by Pulse Oximetry (%) 96 12/17/18 09:00 Constitutional: Yes: No Distress HENT: Yes: Atraumatic Neck: Yes: Supple Cardiovascular: Yes: Regular Rate and Rhythm Respiratory: Yes: CTA Bilaterally Gastrointestinal: Yes: Normal Bowel Sounds Extremities: Yes: WNL Neurological: Yes: Alert, Oriented Labs: CBC, BMP 12/17/18 13:50 12/15/18 06:40 INR, PTT INR 1.62 (0.83-1.09) H 12/10/18 15:07 Problem List - Problems (1) ALIYA (acute kidney injury) Assessment/Plan: monitor improving renal consult Code(s): N17.9 - ACUTE KIDNEY FAILURE, UNSPECIFIED (2) Altered mental status Assessment/Plan: doing well alert talking Code(s): R41.82 - ALTERED MENTAL STATUS, UNSPECIFIED (3) Elevated troponin I level Code(s): R79.89 - OTHER SPECIFIED ABNORMAL FINDINGS OF BLOOD CHEMISTRY (4) Pneumonia Code(s): J18.9 - PNEUMONIA, UNSPECIFIED ORGANISM (5) UTI (urinary tract infection) Assessment/Plan: on abx cxs noted Code(s): N39.0 - URINARY TRACT INFECTION, SITE NOT SPECIFIED (6) HTN (hypertension) Assessment/Plan: on meds Code(s): I10 - ESSENTIAL (PRIMARY) HYPERTENSION Qualifiers: Hypertension type: essential hypertension Qualified Code(s): I10 - Essential (primary) hypertension (7) Hypercholesterolemia Code(s): E78.00 - PURE HYPERCHOLESTEROLEMIA, UNSPECIFIED
[2018-12-17] MEDS: CARVEDILOL 25 MG TABLET (FP) PO SCH (22:05)
[2018-12-17] MEDS: TAMSULOSIN HCL 0.4 MG CAP PO SCH (22:05)
[2018-12-17] MEDS: ATORVASTATIN CA 80 MG TABLET (FP) PO SCH (22:05)
[2018-12-18] MEDS ORDERED: DEXTROSE 5%-WATER - 50 ML IVPB ONE ×3 (00:03→16:28)
[2018-12-18] MEDS ORDERED: PIPERACILLIN/TAZOBACTAM 2.25 GM VIAL IVPB ONE ×3 (00:03→16:28)
[2018-12-18] MEDS: PIPERACILLIN/TAZOB 2.25 GM 2.25 GM in DEXTROSE 5%-WATER - 50 ML IVPB SCH ×3 (01:21→17:26)
[2018-12-18] MEDS: LOSARTAN POTASSIUM 50 MG TABLET (FP) PO SCH (09:58)
[2018-12-18] MEDS: CARVEDILOL 25 MG TABLET (FP) PO SCH ×2 (09:58→21:08)
[2018-12-18] MEDS: HALOPERIDOL 2 MG TABLET PO SCH ×2 (09:59→21:09)
--- NOTE | 2018-12-18 11:42 | PN ---
Progress Note, Physician Chief Complaint: Events noted Not in distress History of Present Illness: Patient was seen and examined. Awake and alert. Chart was reviewed Denies chest pain, SOB or palpitations - Current Medication List Current Medications: Active Medications Acetaminophen (Tylenol -) 650 mg PO Q6H PRN PRN Reason: FEVER Last Admin: 12/14/18 09:58 Dose: 650 mg Atorvastatin Calcium (Lipitor -) 80 mg PO [facility] Last Admin: 12/17/18 22:05 Dose: 80 mg Carvedilol (Coreg -) 25 mg PO BID [facility] Last Admin: 12/18/18 09:58 Dose: 25 mg Haloperidol (Haldol -) 2 mg PO BID [facility] Last Admin: 12/18/18 09:59 Dose: 2 mg Piperacillin Sod/Tazobactam (Sod 2.25 gm/ Dextrose) 50 mls @ 100 mls/hr IVPB Q8H-IV [facility] Last Admin: 12/18/18 09:57 Dose: 100 mls/hr Metronidazole (Flagyl 500mg Premixed Ivpb -) 500 mg in 100 mls @ 100 mls/hr IVPB Q8H-IV [facility] Last Admin: 12/18/18 09:58 Dose: 100 mls/hr Losartan Potassium (Cozaar -) 50 mg PO DAILY [facility] Last Admin: 12/18/18 09:58 Dose: 50 mg Tamsulosin HCl (Flomax -) 0.4 mg PO [facility] Last Admin: 12/17/18 22:05 Dose: 0.4 mg - Objective Vital Signs: Vital Signs Temperature 98 F 12/18/18 09:00 Pulse Rate 70 12/18/18 09:00 Respiratory Rate 18 12/18/18 09:00 Blood Pressure 100/60 12/18/18 09:00 O2 Sat by Pulse Oximetry (%) 95 12/17/18 21:00 HENT: Yes: Atraumatic Neck: Yes: Supple Cardiovascular: Yes: Regular Rate and Rhythm, S1, S2 Respiratory: Yes: Diminished Gastrointestinal: Yes: Normal Bowel Sounds, Soft. No: Tenderness Edema: No Additional Findings/Remarks: - Review of Systems Constitutional: denies: Chills, Fever Cardiovascular: denies Shortness of Breath. denies: Chest Pain, Palpitations Respiratory: denies Cough, SOB, SOB on Exertion. denies: Hemoptysis, Orthopnea , PND Gastrointestinal: denies: Abdominal Pain, Constipation, Diarrhea, Melena, Nausea , Rectal Bleeding, Vomiting Genitourinary: denies: Dysuria, Hematuria Musculoskeletal: denies: Back Pain, Joint Pain Neurological: denies: Dizziness, Headache, Seizure, Syncope Labs: CBC, BMP 12/17/18 13:50 Problem List - Problems (1) HTN (hypertension) Code(s): I10 - ESSENTIAL (PRIMARY) HYPERTENSION Qualifiers: Hypertension type: essential hypertension Qualified Code(s): I10 - Essential (primary) hypertension (2) Hypercholesterolemia Code(s): E78.00 - PURE HYPERCHOLESTEROLEMIA, UNSPECIFIED (3) Dementia Code(s): F03.90 - UNSPECIFIED DEMENTIA WITHOUT BEHAVIORAL DISTURBANCE Qualifiers: Dementia type: unspecified type (4) ALIYA (acute kidney injury) Code(s): N17.9 - ACUTE KIDNEY FAILURE, UNSPECIFIED (5) Altered mental status Code(s): R41.82 - ALTERED MENTAL STATUS, UNSPECIFIED (6) Elevated troponin I level Code(s): R79.89 - OTHER SPECIFIED ABNORMAL FINDINGS OF BLOOD CHEMISTRY (7) Leukocytosis Code(s): D72.829 - ELEVATED WHITE BLOOD CELL COUNT, UNSPECIFIED (8) Transaminitis Code(s): R74.0 - NONSPEC ELEV OF LEVELS OF TRANSAMNS & LACTIC ACID DEHYDRGNSE Assessment/Plan 1. Generalized weakness 2. Shortness of breath with small pleural effusion 3. HTN 4. Hypercholesterolemia 5. Organic brain syndrome/dementia 6. Leukocytosis ? sepsis 7. Demand ischemia 8. Abnormal LFT with hepatic congestion 9. ALIYA/CKD 10 NSVT PLAN: 1. Continue Carvedilol 25 mg BID, Losartan 50 mg QD and Atorvastatin 80 mg QHS as tolerated 2. Currently still on empiric antibiotic coverage. 3. DVT prophylaxis Further plans are to follow Lukasz Perez MD
--- NOTE | 2018-12-18 13:45 | PN ---
Progress Note, Physician History of Present Illness: stable more awake and alert patients wbc jumped very high - Current Medication List Current Medications: Active Medications Acetaminophen (Tylenol -) 650 mg PO Q6H PRN PRN Reason: FEVER Last Admin: 12/14/18 09:58 Dose: 650 mg Atorvastatin Calcium (Lipitor -) 80 mg PO HS [facility] Last Admin: 12/17/18 22:05 Dose: 80 mg Carvedilol (Coreg -) 25 mg PO BID [facility] Last Admin: 12/18/18 09:58 Dose: 25 mg Haloperidol (Haldol -) 2 mg PO BID [facility] Last Admin: 12/18/18 09:59 Dose: 2 mg Piperacillin Sod/Tazobactam (Sod 2.25 gm/ Dextrose) 50 mls @ 100 mls/hr IVPB Q8H-IV [facility] Last Admin: 12/18/18 09:57 Dose: 100 mls/hr Metronidazole (Flagyl 500mg Premixed Ivpb -) 500 mg in 100 mls @ 100 mls/hr IVPB Q8H-IV [facility] Last Admin: 12/18/18 09:58 Dose: 100 mls/hr Losartan Potassium (Cozaar -) 50 mg PO DAILY [facility] Last Admin: 12/18/18 09:58 Dose: 50 mg Tamsulosin HCl (Flomax -) 0.4 mg PO [facility] Last Admin: 12/17/18 22:05 Dose: 0.4 mg - Objective Vital Signs: Vital Signs Temperature 98 F 12/18/18 09:00 Pulse Rate 70 12/18/18 09:00 Respiratory Rate 18 12/18/18 09:00 Blood Pressure 100/60 12/18/18 09:00 O2 Sat by Pulse Oximetry (%) 95 12/17/18 21:00 Constitutional: Yes: No Distress, Calm Cardiovascular: Yes: S1, S2 Respiratory: Yes: Regular, CTA Bilaterally Gastrointestinal: Yes: Normal Bowel Sounds, Soft Musculoskeletal: Yes: WNL Extremities: Yes: WNL Neurological: Yes: Alert, Other Psychiatric: Yes: Other Labs: CBC, BMP 12/17/18 13:50 12/15/18 06:40 INR, PTT INR 1.62 (0.83-1.09) H 12/10/18 15:07 Assessment/Plan dirrhoea weakness uti leukocytosis plan continue abx repeat wbc ordered
[2018-12-18 14:10] LABS: HEMOGLOBIN 10.3 GM/dL (11.7-16.9); MCH 29.9 pg (25.7-33.7); MCHC 32.4 g/dl (32.0-35.9); MEAN CELL VOLUME 92.3 fl (80-96); MEAN PLT VOLUME 11.6 fl (7.5-11.1); PLATELET COUNT 204 K/MM3 (134-434); RBC 3.46 M/mm3 (4.00-5.60); RDW 14.2 % (11.9-15.9); WHITE BLOOD COUNT 24.9 K/mm3 (4.0-10.0)
--- NOTE | 2018-12-18 15:22 | PN ---
Progress Note, Physician History of Present Illness: Pt seen and examined at bedside. He is awake and alert. He denies shortness of breath. - Current Medication List Current Medications: Active Medications Acetaminophen (Tylenol -) 650 mg PO Q6H PRN PRN Reason: FEVER Last Admin: 12/14/18 09:58 Dose: 650 mg Atorvastatin Calcium (Lipitor -) 80 mg PO [facility] Last Admin: 12/17/18 22:05 Dose: 80 mg Carvedilol (Coreg -) 25 mg PO BID [facility] Last Admin: 12/18/18 09:58 Dose: 25 mg Haloperidol (Haldol -) 2 mg PO BID [facility] Last Admin: 12/18/18 09:59 Dose: 2 mg Piperacillin Sod/Tazobactam (Sod 2.25 gm/ Dextrose) 50 mls @ 100 mls/hr IVPB Q8H-IV [facility] Last Admin: 12/18/18 09:57 Dose: 100 mls/hr Metronidazole (Flagyl 500mg Premixed Ivpb -) 500 mg in 100 mls @ 100 mls/hr IVPB Q8H-IV [facility] Last Admin: 12/18/18 09:58 Dose: 100 mls/hr Losartan Potassium (Cozaar -) 50 mg PO DAILY [facility] Last Admin: 12/18/18 09:58 Dose: 50 mg Tamsulosin HCl (Flomax -) 0.4 mg PO [facility] Last Admin: 12/17/18 22:05 Dose: 0.4 mg - Objective Vital Signs: Vital Signs Temperature 98 F 12/18/18 09:00 Pulse Rate 70 12/18/18 09:00 Respiratory Rate 18 12/18/18 09:00 Blood Pressure 100/60 12/18/18 09:00 O2 Sat by Pulse Oximetry (%) 95 12/17/18 21:00 Constitutional: Yes: Calm Eyes: Yes: Conjunctiva Clear HENT: Yes: Atraumatic Cardiovascular: Yes: S1, S2 Respiratory: Yes: CTA Bilaterally Gastrointestinal: Yes: Normal Bowel Sounds, Soft Genitourinary: Yes: Incontinence Musculoskeletal: Yes: Muscle Weakness Edema: No Integumentary: Yes: WNL Neurological: Yes: Confusion Labs: CBC, BMP 12/18/18 13:58 12/15/18 06:40 INR, PTT INR 1.62 (0.83-1.09) H 12/10/18 15:07 Problem List - Problems (1) ALIYA (acute kidney injury) Code(s): N17.9 - ACUTE KIDNEY FAILURE, UNSPECIFIED (2) Altered mental status Code(s): R41.82 - ALTERED MENTAL STATUS, UNSPECIFIED Assessment/Plan Current Medications Generic Name Dose Route Start Last Admin Trade Name Freq PRN Reason Stop Dose Admin Acetaminophen 650 mg 12/10/18 20:42 12/14/18 09:58 Tylenol - PO 650 mg Q6H PRN Administration FEVER Atorvastatin Calcium 80 mg 12/10/18 22:00 12/17/18 22:05 Lipitor - PO 80 mg HS JONNY Administration Carvedilol 25 mg 12/17/18 22:00 12/18/18 09:58 Coreg - PO 25 mg BID JONNY Administration Haloperidol 2 mg 12/11/18 22:00 12/18/18 09:59 Haldol - PO 2 mg BID JONNY Administration Piperacillin Sod/Tazobactam 50 mls @ 100 mls/hr 12/17/18 16:00 12/18/18 09:57 Sod 2.25 gm/ Dextrose IVPB 100 mls/hr Q8H-IV JONNY Administration Metronidazole 500 mg in 100 mls @ 100 mls/hr 12/17/18 16:30 12/18/18 09:58 Flagyl 500mg Premixed Ivpb - IVPB 100 mls/hr Q8H-IV JONNY Administration Losartan Potassium 50 mg 12/11/18 10:00 12/18/18 09:58 Cozaar - PO 50 mg DAILY JONNY Administration Tamsulosin HCl 0.4 mg 12/10/18 22:00 12/17/18 22:05 Flomax - PO 0.4 mg HS JONNY Administration Impression 1. ALIYA vs CKD 2. HTN 3. CHF 4. weakness 5. 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
--- NOTE | 2018-12-18 17:10 | PN ---
Progress Note, Physician - Current Medication List Current Medications: Active Medications Acetaminophen (Tylenol -) 650 mg PO Q6H PRN PRN Reason: FEVER Last Admin: 12/14/18 09:58 Dose: 650 mg Atorvastatin Calcium (Lipitor -) 80 mg PO [facility] Last Admin: 12/17/18 22:05 Dose: 80 mg Carvedilol (Coreg -) 25 mg PO BID [facility] Last Admin: 12/18/18 09:58 Dose: 25 mg Haloperidol (Haldol -) 2 mg PO BID [facility] Last Admin: 12/18/18 09:59 Dose: 2 mg Piperacillin Sod/Tazobactam (Sod 2.25 gm/ Dextrose) 50 mls @ 100 mls/hr IVPB Q8H-IV [facility] Last Admin: 12/18/18 09:57 Dose: 100 mls/hr Metronidazole (Flagyl 500mg Premixed Ivpb -) 500 mg in 100 mls @ 100 mls/hr IVPB Q8H-IV [facility] Last Admin: 12/18/18 09:58 Dose: 100 mls/hr Losartan Potassium (Cozaar -) 50 mg PO DAILY [facility] Last Admin: 12/18/18 09:58 Dose: 50 mg Tamsulosin HCl (Flomax -) 0.4 mg PO [facility] Last Admin: 12/17/18 22:05 Dose: 0.4 mg - Objective Vital Signs: Vital Signs Temperature 98.3 F 12/18/18 14:15 Pulse Rate 66 12/18/18 14:15 Respiratory Rate 20 12/18/18 14:15 Blood Pressure 130/61 12/18/18 14:15 O2 Sat by Pulse Oximetry (%) 95 12/17/18 21:00 HENT: Yes: Atraumatic Neck: Yes: Supple Cardiovascular: Yes: Regular Rate and Rhythm Respiratory: Yes: CTA Bilaterally Gastrointestinal: Yes: Normal Bowel Sounds Extremities: Yes: WNL Edema: No Neurological: Yes: Alert, Oriented Labs: CBC, BMP 12/18/18 13:58 12/15/18 06:40 INR, PTT INR 1.62 (0.83-1.09) H 12/10/18 15:07 Problem List - Problems (1) ALIYA (acute kidney injury) Assessment/Plan: monitor improving renal consult Code(s): N17.9 - ACUTE KIDNEY FAILURE, UNSPECIFIED (2) Altered mental status Assessment/Plan: doing well alert talking Code(s): R41.82 - ALTERED MENTAL STATUS, UNSPECIFIED (3) Elevated troponin I level Code(s): R79.89 - OTHER SPECIFIED ABNORMAL FINDINGS OF BLOOD CHEMISTRY (4) Pneumonia Code(s): J18.9 - PNEUMONIA, UNSPECIFIED ORGANISM (5) UTI (urinary tract infection) Assessment/Plan: on abx cxs noted Code(s): N39.0 - URINARY TRACT INFECTION, SITE NOT SPECIFIED (6) HTN (hypertension) Assessment/Plan: on meds Code(s): I10 - ESSENTIAL (PRIMARY) HYPERTENSION Qualifiers: Hypertension type: essential hypertension Qualified Code(s): I10 - Essential (primary) hypertension (7) Hypercholesterolemia Assessment/Plan: on meds Code(s): E78.00 - PURE HYPERCHOLESTEROLEMIA, UNSPECIFIED
[2018-12-18] MEDS: ATORVASTATIN CA 80 MG TABLET (FP) PO SCH (21:08)
[2018-12-18] MEDS: TAMSULOSIN HCL 0.4 MG CAP PO SCH (21:09)
[2018-12-19] MEDS ORDERED: DEXTROSE 5%-WATER - 50 ML IVPB ONE ×3 (00:53→16:49)
[2018-12-19] MEDS ORDERED: PIPERACILLIN/TAZOBACTAM 2.25 GM VIAL IVPB ONE ×3 (00:53→16:49)
[2018-12-19] MEDS: PIPERACILLIN/TAZOB 2.25 GM 2.25 GM in DEXTROSE 5%-WATER - 50 ML IVPB SCH ×3 (01:00→18:01)
[2018-12-19 07:05] LABS: BASO % 0.3 % (0-2.0); EOS % 0.5 % (0-4.5); HEMOGLOBIN 9.9 GM/dL (11.7-16.9); LYMPH % 6.3 % (8-40); MCH 29.7 pg (25.7-33.7); MCHC 31.9 g/dl (32.0-35.9); MEAN CELL VOLUME 93.1 fl (80-96); MONO % 3.3 % (3.8-10.2); NEUT % 89.6 % (42.8-82.8); PLATELET COUNT 170 K/MM3 (134-434); RBC 3.33 M/mm3 (4.00-5.60); RDW 14.4 % (11.9-15.9); WHITE BLOOD COUNT 18.4 K/mm3 (4.0-10.0)
[2018-12-19 07:33] LABS: ALBUMIN 2.1 g/dl (3.4-5.0); BLOOD UREA NITROGEN 17.3 mg/dL (7-18); CALCIUM 7.9 mg/dL (8.5-10.1); CREATININE 1.9 mg/dL (0.55-1.3); POTASSIUM 4.4 mmol/L (3.5-5.1); TOT PROT 5.6 g/dl (6.4-8.2)
[2018-12-19] MEDS ORDERED: PT OWN MED DRAWER 7, Y5N ONE (09:22)
--- NOTE | 2018-12-19 09:22 | CON.GU ---
Consult Consult Specialty:: Urology - History of Present Illness Chief Complaint: Urinary Tract Infection - History Source History Provided By: Medical Record Limitations to Obtaining History: Clinical Condition - Past Medical History [employer]: Yes: Dementia Cardio/Vascular: Yes: CHF Renal/: Yes: Renal Failure - Alcohol/Substance Use Hx Alcohol Use: No - Smoking History Smoking history: Unknown if ever smoked Have you smoked in the past 12 months: No Home Medications - Allergies Allergies/Adverse Reactions: Allergies Allergy/AdvReac Type Severity Reaction Status Date / Time No Known Allergies Allergy Verified 12/10/18 17:18 - Home Medications Home Medications: Ambulatory Orders Atorvastatin Ca [Lipitor] 80 mg PO HS 12/10/18 Carvedilol 12.5 mg PO BID 12/10/18 Furosemide 20 mg PO DAILY 12/10/18 Haloperidol 2 mg PO BID 12/10/18 Losartan Potassium 50 mg PO DAILY 12/10/18 Tamsulosin HCl [Flomax] 0.4 mg PO HS 12/10/18 Physical Exam- Vital Signs: Vital Signs Temperature 98.6 F 12/19/18 06:00 Pulse Rate 67 12/19/18 06:00 Respiratory Rate 12/19/18 06:00 Blood Pressure 124/73 12/19/18 06:00 O2 Sat by Pulse Oximetry (%) 95 12/18/18 21:00 Labs: CBC, BMP 12/19/18 05:39 12/19/18 05:39 Assessment/Plan 78 year old male seen for evaluation of UTI. Pt is incontinent, wears a diaper. No previous urological history not available. Pt. denies any trouble urinating. He is being treated for UTI. ID consult noted. Renal US essentially WNL. S.Creatinine is 1.9, but BUN is improving. Will need cysto if medical condition permits. Blood culture and urine culture pending. WBC is very high. Will follow with you. Thank you.
[2018-12-19] MEDS: LOSARTAN POTASSIUM 50 MG TABLET (FP) PO SCH (09:43)
[2018-12-19] MEDS: CARVEDILOL 25 MG TABLET (FP) PO SCH ×2 (09:43→21:46)
[2018-12-19] MEDS: HALOPERIDOL 2 MG TABLET PO SCH ×2 (09:43→21:47)
--- NOTE | 2018-12-19 09:57 | PN ---
Progress Note, Physician History of Present Illness: Denies chest pain, SOB or palpitations, resting comfortably in chair. - Current Medication List Current Medications: Active Medications Acetaminophen (Tylenol -) 650 mg PO Q6H PRN PRN Reason: FEVER Last Admin: 12/14/18 09:58 Dose: 650 mg Atorvastatin Calcium (Lipitor -) 80 mg PO HS [facility] Last Admin: 12/18/18 21:08 Dose: 80 mg Carvedilol (Coreg -) 25 mg PO BID [facility] Last Admin: 12/19/18 09:43 Dose: 25 mg Haloperidol (Haldol -) 2 mg PO BID [facility] Last Admin: 12/19/18 09:43 Dose: 2 mg Piperacillin Sod/Tazobactam (Sod 2.25 gm/ Dextrose) 50 mls @ 100 mls/hr IVPB Q8H-IV [facility] Last Admin: 12/19/18 09:43 Dose: 100 mls/hr Metronidazole (Flagyl 500mg Premixed Ivpb -) 500 mg in 100 mls @ 100 mls/hr IVPB Q8H-IV [facility] Last Admin: 12/19/18 09:43 Dose: 100 mls/hr Losartan Potassium (Cozaar -) 50 mg PO DAILY [facility] Last Admin: 12/19/18 09:43 Dose: 50 mg Tamsulosin HCl (Flomax -) 0.4 mg PO [facility] Last Admin: 12/18/18 21:09 Dose: 0.4 mg - Objective Vital Signs: Vital Signs Temperature 98.6 F 12/19/18 06:00 Pulse Rate 67 12/19/18 06:00 Respiratory Rate 19 12/19/18 06:00 Blood Pressure 124/73 12/19/18 06:00 O2 Sat by Pulse Oximetry (%) 95 12/18/18 21:00 Constitutional: Yes: No Distress, Calm, Thin Neck: Yes: Supple Cardiovascular: Yes: Regular Rate and Rhythm Respiratory: Yes: Regular, Diminished Gastrointestinal: Yes: Normal Bowel Sounds, Soft Edema: No Labs: CBC, BMP 12/19/18 05:39 12/19/18 05:39 INR, PTT INR 1.62 (0.83-1.09) H 12/10/18 15:07 Problem List - Problems (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 Code(s): I51.89 - OTHER ILL-DEFINED HEART DISEASES (2) ALIYA (acute kidney injury) Code(s): N17.9 - ACUTE KIDNEY FAILURE, UNSPECIFIED (3) Dementia Code(s): F03.90 - UNSPECIFIED DEMENTIA WITHOUT BEHAVIORAL DISTURBANCE Qualifiers: Dementia type: unspecified type (4) Elevated troponin I level Code(s): R79.89 - OTHER SPECIFIED ABNORMAL FINDINGS OF BLOOD CHEMISTRY (5) HTN (hypertension) Code(s): I10 - ESSENTIAL (PRIMARY) HYPERTENSION Qualifiers: Hypertension type: essential hypertension Qualified Code(s): I10 - Essential (primary) hypertension (6) Hypercholesterolemia Code(s): E78.00 - PURE HYPERCHOLESTEROLEMIA, UNSPECIFIED (7) Leukocytosis Code(s): D72.829 - ELEVATED WHITE BLOOD CELL COUNT, UNSPECIFIED (8) Transaminitis Code(s): R74.0 - NONSPEC ELEV OF LEVELS OF TRANSAMNS & LACTIC ACID DEHYDRGNSE Assessment/Plan 12/12/2018 Echo: Mildly dilated with moderate-severe decreased LVEF 35-40%, mild MR, TR, mild AR, mod ADAM, restrictive physiology 1. Shortness of breath, weakness with small pleural effusion improving 2/2 2. 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 HTN heart disease not at goal BP 4. Hypercholesterolemia 5. Organic brain syndrome/dementia 6. Leukocytosis and diarrhea resolving, ruled out c. diff 7. Abnormal LFT c/w hepatic congestion improving 8. Acute on CKD improving 9. NSVT PLAN: 1. Continue Carvedilol 25 bid, Losartan 50 qd and Atorvastatin 80 qhs as tolerated 2. Not on aldosterone inhibition due to CKD, eventual cystoscopy 3. Resumed empiric antibiotic coverage 4. Troponin plateaued, WBC trending downwards 5. DVT prophylaxis
--- NOTE | 2018-12-19 12:09 | PN ---
Progress Note, Physician History of Present Illness: stable no new issues - Current Medication List Current Medications: Active Medications Acetaminophen (Tylenol -) 650 mg PO Q6H PRN PRN Reason: FEVER Last Admin: 12/14/18 09:58 Dose: 650 mg Atorvastatin Calcium (Lipitor -) 80 mg PO HS [facility] Last Admin: 12/18/18 21:08 Dose: 80 mg Carvedilol (Coreg -) 25 mg PO BID [facility] Last Admin: 12/19/18 09:43 Dose: 25 mg Haloperidol (Haldol -) 2 mg PO BID [facility] Last Admin: 12/19/18 09:43 Dose: 2 mg Piperacillin Sod/Tazobactam (Sod 2.25 gm/ Dextrose) 50 mls @ 100 mls/hr IVPB Q8H-IV [facility] Last Admin: 12/19/18 09:43 Dose: 100 mls/hr Metronidazole (Flagyl 500mg Premixed Ivpb -) 500 mg in 100 mls @ 100 mls/hr IVPB Q8H-IV [facility] Last Admin: 12/19/18 09:43 Dose: 100 mls/hr Losartan Potassium (Cozaar -) 50 mg PO DAILY [facility] Last Admin: 12/19/18 09:43 Dose: 50 mg Tamsulosin HCl (Flomax -) 0.4 mg PO [facility] Last Admin: 12/18/18 21:09 Dose: 0.4 mg - Objective Vital Signs: Vital Signs Temperature 98.6 F 12/19/18 06:00 Pulse Rate 67 12/19/18 06:00 Respiratory Rate 19 12/19/18 06:00 Blood Pressure 124/73 12/19/18 06:00 O2 Sat by Pulse Oximetry (%) 95 12/18/18 21:00 Constitutional: Yes: No Distress, Calm Cardiovascular: Yes: S1, S2 Respiratory: Yes: Regular, CTA Bilaterally Gastrointestinal: Yes: Normal Bowel Sounds, Soft Genitourinary: Yes: Other (incontinent) Musculoskeletal: Yes: WNL Extremities: Yes: WNL Neurological: Yes: Alert Labs: CBC, BMP 12/19/18 05:39 12/19/18 05:39 INR, PTT INR 1.62 (0.83-1.09) H 12/10/18 15:07 Assessment/Plan dirrhoea weakness uti leukocytosis plan continue abx repeat wbc ordered will await urology input rest as per the team
--- NOTE | 2018-12-19 13:17 | PN ---
Progress Note, Physician History of Present Illness: Pt seen and examined at bedside. He is awake and appears comfortable. - Current Medication List Current Medications: Active Medications Acetaminophen (Tylenol -) 650 mg PO Q6H PRN PRN Reason: FEVER Last Admin: 12/14/18 09:58 Dose: 650 mg Atorvastatin Calcium (Lipitor -) [address] [facility] Last Admin: 12/18/18 21:08 Dose: 80 mg Carvedilol (Coreg -) [address] [facility] Last Admin: 12/19/18 09:43 Dose: 25 mg Haloperidol (Haldol -) [address] [facility] Last Admin: 12/19/18 09:43 Dose: 2 mg Piperacillin Sod/Tazobactam (Sod 2.25 gm/ Dextrose) 50 mls @ 100 mls/hr IVPB Q8H-IV [facility] Last Admin: 12/19/18 09:43 Dose: 100 mls/hr Metronidazole (Flagyl 500mg Premixed Ivpb -) 500 mg in 100 mls @ 100 mls/hr IVPB Q8H-IV [facility] Last Admin: 12/19/18 09:43 Dose: 100 mls/hr Losartan Potassium (Cozaar -) [address] [facility] Last Admin: 12/19/18 09:43 Dose: 50 mg Tamsulosin HCl (Flomax -) 0.4 mg PO [facility] Last Admin: 12/18/18 21:09 Dose: 0.4 mg - Objective Vital Signs: Vital Signs Temperature 97.8 F 12/19/18 10:00 Pulse Rate 71 12/19/18 10:00 Respiratory Rate 20 12/19/18 10:00 Blood Pressure 136/72 12/19/18 10:00 O2 Sat by Pulse Oximetry (%) 97 12/19/18 09:00 Constitutional: Yes: Calm Eyes: Yes: Conjunctiva Clear HENT: Yes: Atraumatic Cardiovascular: Yes: S1, S2 Respiratory: Yes: CTA Bilaterally Genitourinary: Yes: Other (scrotal swelling) Musculoskeletal: Yes: WNL Edema: Yes Integumentary: Yes: WNL Psychiatric: Yes: Oriented Labs: CBC, BMP 12/19/18 05:39 12/19/18 05:39 INR, PTT INR 1.62 (0.83-1.09) H 12/10/18 15:07 Problem List - Problems (1) ALIYA (acute kidney injury) Code(s): N17.9 - ACUTE KIDNEY FAILURE, UNSPECIFIED (2) Altered mental status Code(s): R41.82 - ALTERED MENTAL STATUS, UNSPECIFIED Assessment/Plan Current Medications Generic Name Dose Route Start Last Admin Trade Name Freq PRN Reason Stop Dose Admin Acetaminophen 650 mg 12/10/18 20:42 12/14/18 09:58 Tylenol - PO 650 mg Q6H PRN Administration FEVER Atorvastatin Calcium 80 mg 12/10/18 22:00 12/18/18 21:08 Lipitor - PO 80 mg HS JONNY Administration Carvedilol 25 mg 12/17/18 22:00 12/19/18 09:43 Coreg - PO 25 mg BID JONNY Administration Haloperidol 2 mg 12/11/18 22:00 12/19/18 09:43 Haldol - PO 2 mg BID JONNY Administration Piperacillin Sod/Tazobactam 50 mls @ 100 mls/hr 12/17/18 16:00 12/19/18 09:43 Sod 2.25 gm/ Dextrose IVPB 100 mls/hr Q8H-IV JONNY Administration Metronidazole 500 mg in 100 mls @ 100 mls/hr 12/17/18 16:30 12/19/18 09:43 Flagyl 500mg Premixed Ivpb - IVPB 100 mls/hr Q8H-IV JONNY Administration Losartan Potassium 50 mg 12/11/18 10:00 12/19/18 09:43 Cozaar - PO 50 mg DAILY JONNY Administration Tamsulosin HCl 0.4 mg 12/10/18 22:00 12/18/18 21:09 Flomax - PO 0.4 mg HS JONNY Administration Impression 1. ALIYA vs CKD 2. HTN 3. CHF 4. weakness 5. 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
--- NOTE | 2018-12-19 16:54 | CONS ---
DATE OF CONSULTATION: DATE OF DICTATION: 12/19/2018 HISTORY OF PRESENT ILLNESS: The patient is a 78-year-old male admitted via the emergency room with increasing generalized weakness and an inability to ambulate. Patient has been having overflow incontinence and recurrent urinary tract infection for the past year. He has been wearing an adult diaper which is wet on a daily basis. He does have history of dementia and congestive heart failure. His BUN and creatinine on admission were 27.2 over 2.2. Renal ultrasound revealed normal upper tract. A CAT scan of the abdomen and pelvis revealed a generalized diffuse enlargement of the prostate glands with free pelvic fluids. A urinalysis revealed some Staphylococcus aureus. The latest white count is 18,400. Hemoglobin and hematocrit are 9.9/31. His latest BUN and creatinine are 17.3/1.9. IMPRESSION: Post renal azotemia with overflow incontinence. Will recommend cystoscopy, possible prostate vaporization when patient is medically stable. Will follow with you. Eduardo [id number]
--- NOTE | 2018-12-19 19:08 | PN ---
Progress Note, Physician - Current Medication List Current Medications: Active Medications Acetaminophen (Tylenol -) 650 mg PO Q6H PRN PRN Reason: FEVER Last Admin: 12/14/18 09:58 Dose: 650 mg Atorvastatin Calcium (Lipitor -) 80 mg PO [facility] Last Admin: 12/18/18 21:08 Dose: 80 mg Carvedilol (Coreg -) 25 mg PO BID [facility] Last Admin: 12/19/18 09:43 Dose: 25 mg Haloperidol (Haldol -) 2 mg PO BID [facility] Last Admin: 12/19/18 09:43 Dose: 2 mg Piperacillin Sod/Tazobactam (Sod 2.25 gm/ Dextrose) 50 mls @ 100 mls/hr IVPB Q8H-IV [facility] Last Admin: 12/19/18 18:01 Dose: 100 mls/hr Metronidazole (Flagyl 500mg Premixed Ivpb -) 500 mg in 100 mls @ 100 mls/hr IVPB Q8H-IV [facility] Last Admin: 12/19/18 18:01 Dose: 100 mls/hr Losartan Potassium (Cozaar -) 50 mg PO DAILY [facility] Last Admin: 12/19/18 09:43 Dose: 50 mg Tamsulosin HCl (Flomax -) 0.4 mg PO [facility] Last Admin: 12/18/18 21:09 Dose: 0.4 mg - Objective Vital Signs: Vital Signs Temperature 98 F 12/19/18 13:25 Pulse Rate 65 12/19/18 13:25 Respiratory Rate 20 12/19/18 13:25 Blood Pressure 125/67 12/19/18 13:25 O2 Sat by Pulse Oximetry (%) 97 12/19/18 09:00 Constitutional: Yes: No Distress HENT: Yes: Atraumatic Neck: Yes: Supple Cardiovascular: Yes: Regular Rate and Rhythm Respiratory: Yes: CTA Bilaterally Gastrointestinal: Yes: Normal Bowel Sounds Extremities: Yes: WNL Neurological: Yes: Alert, Oriented Labs: CBC, BMP 12/19/18 05:39 12/19/18 05:39 INR, PTT INR 1.62 (0.83-1.09) H 12/10/18 15:07 Problem List - Problems (1) ALIYA (acute kidney injury) Assessment/Plan: monitor improving renal consult Code(s): N17.9 - ACUTE KIDNEY FAILURE, UNSPECIFIED (2) Altered mental status Assessment/Plan: doing well alert talking Code(s): R41.82 - ALTERED MENTAL STATUS, UNSPECIFIED (3) Elevated troponin I level Code(s): R79.89 - OTHER SPECIFIED ABNORMAL FINDINGS OF BLOOD CHEMISTRY (4) Pneumonia Code(s): J18.9 - PNEUMONIA, UNSPECIFIED ORGANISM (5) UTI (urinary tract infection) Assessment/Plan: on abx cxs noted Code(s): N39.0 - URINARY TRACT INFECTION, SITE NOT SPECIFIED (6) HTN (hypertension) Assessment/Plan: on meds Code(s): I10 - ESSENTIAL (PRIMARY) HYPERTENSION Qualifiers: Hypertension type: essential hypertension Qualified Code(s): I10 - Essential (primary) hypertension (7) Hypercholesterolemia Assessment/Plan: on meds Code(s): E78.00 - PURE HYPERCHOLESTEROLEMIA, UNSPECIFIED
[2018-12-19] MEDS: ATORVASTATIN CA 80 MG TABLET (FP) PO SCH (21:46)
[2018-12-19] MEDS: TAMSULOSIN HCL 0.4 MG CAP PO SCH (21:46)
[2018-12-20] MEDS ORDERED: PIPERACILLIN/TAZOBACTAM 2.25 GM VIAL IVPB ONE ×3 (00:32→15:42)
[2018-12-20] MEDS: PIPERACILLIN/TAZOB 2.25 GM 2.25 GM in DEXTROSE 5%-WATER - 50 ML IVPB SCH ×3 (01:20→17:10)
[2018-12-20] MEDS ORDERED: PT OWN MED DRAWER 7, Y5N ONE ×3 (06:12→20:25)
[2018-12-20 07:49] LABS: MCHC 32.4 g/dl (32.0-35.9); MEAN CELL VOLUME 92.5 fl (80-96); MEAN PLT VOLUME 10.9 fl (7.5-11.1); PLATELET COUNT 223 K/MM3 (134-434); RBC 3.35 M/mm3 (4.00-5.60); RDW 14.5 % (11.9-15.9); WHITE BLOOD COUNT 13.4 K/mm3 (4.0-10.0)
[2018-12-20] MEDS ORDERED: DEXTROSE 5%-WATER - 50 ML IVPB ONE ×2 (09:16→15:42)
[2018-12-20] MEDS: LOSARTAN POTASSIUM 50 MG TABLET (FP) PO SCH (09:19)
[2018-12-20] MEDS: CARVEDILOL 25 MG TABLET (FP) PO SCH ×2 (09:19→21:07)
--- NOTE | 2018-12-20 09:19 | PN ---
Progress Note, Physician History of Present Illness: Denies chest pain, SOB or palpitations, resting comfortably in bed. Scrotal US shows bilateral hydroceles. - Current Medication List Current Medications: Active Medications Acetaminophen (Tylenol -) 650 mg PO Q6H PRN PRN Reason: FEVER Last Admin: 12/14/18 09:58 Dose: 650 mg Atorvastatin Calcium (Lipitor -) 80 mg PO [facility] Last Admin: 12/19/18 21:46 Dose: 80 mg Carvedilol (Coreg -) 25 mg PO BID [facility] Last Admin: 12/19/18 21:46 Dose: 25 mg Haloperidol (Haldol -) 2 mg PO BID [facility] Last Admin: 12/19/18 21:47 Dose: 2 mg Piperacillin Sod/Tazobactam (Sod 2.25 gm/ Dextrose) 50 mls @ 100 mls/hr IVPB Q8H-IV [facility] Last Admin: 12/20/18 01:20 Dose: 100 mls/hr Metronidazole (Flagyl 500mg Premixed Ivpb -) 500 mg in 100 mls @ 100 mls/hr IVPB Q8H-IV [facility] Last Admin: 12/20/18 01:20 Dose: 100 mls/hr Losartan Potassium (Cozaar -) 50 mg PO DAILY [facility] Last Admin: 12/19/18 09:43 Dose: 50 mg Tamsulosin HCl (Flomax -) 0.4 mg PO [facility] Last Admin: 12/19/18 21:46 Dose: 0.4 mg - Objective Vital Signs: Vital Signs Temperature 97.9 F 12/20/18 07:06 Pulse Rate 70 12/20/18 07:06 Respiratory Rate 20 12/20/18 07:06 Blood Pressure 140/78 12/20/18 07:06 O2 Sat by Pulse Oximetry (%) 98 12/19/18 22:00 Constitutional: Yes: No Distress, Calm, Thin Neck: Yes: Supple Cardiovascular: Yes: Regular Rate and Rhythm Respiratory: Yes: Regular, Diminished Gastrointestinal: Yes: Normal Bowel Sounds, Soft Edema: Yes Edema: LLE: Trace, RLE: Trace Labs: CBC, BMP 12/20/18 07:30 12/19/18 05:39 INR, PTT INR 1.62 (0.83-1.09) H 12/10/18 15:07 Problem List - Problems (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 Code(s): I51.89 - OTHER ILL-DEFINED HEART DISEASES (2) ALIYA (acute kidney injury) Code(s): N17.9 - ACUTE KIDNEY FAILURE, UNSPECIFIED (3) Dementia Code(s): F03.90 - UNSPECIFIED DEMENTIA WITHOUT BEHAVIORAL DISTURBANCE Qualifiers: Dementia type: unspecified type (4) Elevated troponin I level Code(s): R79.89 - OTHER SPECIFIED ABNORMAL FINDINGS OF BLOOD CHEMISTRY (5) HTN (hypertension) Code(s): I10 - ESSENTIAL (PRIMARY) HYPERTENSION Qualifiers: Hypertension type: essential hypertension Qualified Code(s): I10 - Essential (primary) hypertension (6) Hypercholesterolemia Code(s): E78.00 - PURE HYPERCHOLESTEROLEMIA, UNSPECIFIED (7) Leukocytosis Code(s): D72.829 - ELEVATED WHITE BLOOD CELL COUNT, UNSPECIFIED (8) Transaminitis Code(s): R74.0 - NONSPEC ELEV OF LEVELS OF TRANSAMNS & LACTIC ACID DEHYDRGNSE Assessment/Plan 12/12/2018 Echo: Mildly dilated with moderate-severe decreased LVEF 35-40%, mild MR, TR, mild AR, mod ADAM, restrictive physiology 1. Shortness of breath, weakness with small pleural effusion improving 2/2 2. 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 HTN heart disease not at goal BP 4. Hypercholesterolemia 5. Organic brain syndrome/dementia 6. Leukocytosis and diarrhea resolving, ruled out c. diff 7. Abnormal LFT c/w hepatic congestion improving 8. Acute on CKD improving 9. NSVT 10. Large bilateral hydroceles PLAN: 1. Continue Carvedilol 25 bid, Losartan 50 qd and Atorvastatin 80 qhs as tolerated 2. Not on aldosterone inhibition due to CKD, eventual cystoscopy, hydrocele repair 3. Continue empiric antibiotic coverage 4. Troponin plateaued, WBC trending downwards 5. DVT prophylaxis
[2018-12-20] MEDS: HALOPERIDOL 2 MG TABLET PO SCH ×2 (09:20→21:07)
--- NOTE | 2018-12-20 11:47 | PN ---
Progress Note, Physician History of Present Illness: stable wbc trending down urology note noted - Current Medication List Current Medications: Active Medications Acetaminophen (Tylenol -) 650 mg PO Q6H PRN PRN Reason: FEVER Last Admin: 12/14/18 09:58 Dose: 650 mg Atorvastatin Calcium (Lipitor -) 80 mg PO HS [facility] Last Admin: 12/19/18 21:46 Dose: 80 mg Carvedilol (Coreg -) 25 mg PO BID [facility] Last Admin: 12/20/18 09:19 Dose: 25 mg Haloperidol (Haldol -) 2 mg PO BID [facility] Last Admin: 12/20/18 09:20 Dose: 2 mg Piperacillin Sod/Tazobactam (Sod 2.25 gm/ Dextrose) 50 mls @ 100 mls/hr IVPB Q8H-IV [facility] Last Admin: 12/20/18 09:19 Dose: 100 mls/hr Metronidazole (Flagyl 500mg Premixed Ivpb -) 500 mg in 100 mls @ 100 mls/hr IVPB Q8H-IV [facility] Last Admin: 12/20/18 09:19 Dose: 100 mls/hr Losartan Potassium (Cozaar -) 50 mg PO DAILY [facility] Last Admin: 12/20/18 09:19 Dose: 50 mg Tamsulosin HCl (Flomax -) 0.4 mg PO HS [facility] Last Admin: 12/19/18 21:46 Dose: 0.4 mg - Objective Vital Signs: Vital Signs Temperature 98 F 12/20/18 10:00 Pulse Rate 76 12/20/18 10:00 Respiratory Rate 20 12/20/18 10:00 Blood Pressure 126/70 12/20/18 10:00 O2 Sat by Pulse Oximetry (%) 98 12/20/18 09:00 Constitutional: Yes: No Distress, Calm Cardiovascular: Yes: S1, S2 Respiratory: Yes: Regular, CTA Bilaterally Gastrointestinal: Yes: Normal Bowel Sounds, Soft Musculoskeletal: Yes: WNL Extremities: Yes: Other Neurological: Yes: Alert Psychiatric: Yes: Alert Labs: CBC, BMP 12/20/18 07:30 12/19/18 05:39 INR, PTT INR 1.62 (0.83-1.09) H 12/10/18 15:07 Assessment/Plan dirrhoea weakness uti leukocytosis plan continue abx as per urology will check wbc rest as per the team
[2018-12-20 12:02] VITALS: BMI 26.9
--- NOTE | 2018-12-20 15:38 | PN ---
Progress Note, Physician History of Present Illness: Pt seen and examined. He appears comfortable. He denies shortness of breath. - Current Medication List Current Medications: Active Medications Acetaminophen (Tylenol -) 650 mg PO Q6H PRN PRN Reason: FEVER Last Admin: 12/14/18 09:58 Dose: 650 mg Atorvastatin Calcium (Lipitor -) 80 mg PO HS COUNTS INCLUDE 234 BEDS AT THE [facility] Last Admin: 12/19/18 21:46 Dose: 80 mg Carvedilol (Coreg -) 25 mg PO BID COUNTS INCLUDE 234 BEDS AT THE [facility] Last Admin: 12/20/18 09:19 Dose: 25 mg Haloperidol (Haldol -) 2 mg PO BID COUNTS INCLUDE 234 BEDS AT THE [facility] Last Admin: 12/20/18 09:20 Dose: 2 mg Piperacillin Sod/Tazobactam (Sod 2.25 gm/ Dextrose) 50 mls @ 100 mls/hr IVPB Q8H-IV COUNTS INCLUDE 234 BEDS AT THE [facility] Last Admin: 12/20/18 09:19 Dose: 100 mls/hr Metronidazole (Flagyl 500mg Premixed Ivpb -) 500 mg in 100 mls @ 100 mls/hr IVPB Q8H-IV COUNTS INCLUDE 234 BEDS AT THE [facility] Last Admin: 12/20/18 09:19 Dose: 100 mls/hr Losartan Potassium (Cozaar -) 50 mg PO DAILY COUNTS INCLUDE 234 BEDS AT THE [facility] Last Admin: 12/20/18 09:19 Dose: 50 mg Tamsulosin HCl (Flomax -) 0.4 mg PO HS COUNTS INCLUDE 234 BEDS AT THE [facility] Last Admin: 12/19/18 21:46 Dose: 0.4 mg - Objective Vital Signs: Vital Signs Temperature 98.2 F 12/20/18 13:44 Pulse Rate 80 12/20/18 13:44 Respiratory Rate 20 12/20/18 13:44 Blood Pressure 138/75 12/20/18 13:44 O2 Sat by Pulse Oximetry (%) 98 12/20/18 09:00 Constitutional: Yes: Calm Eyes: Yes: Conjunctiva Clear HENT: Yes: Atraumatic Cardiovascular: Yes: S1, S2 Respiratory: Yes: CTA Bilaterally Gastrointestinal: Yes: Normal Bowel Sounds, Soft Genitourinary: Yes: Incontinence Musculoskeletal: Yes: WNL Edema: No Neurological: Yes: Confusion Psychiatric: Yes: Oriented Labs: CBC, BMP 12/20/18 07:30 12/19/18 05:39 INR, PTT INR 1.62 (0.83-1.09) H 12/10/18 15:07 Problem List - Problems (1) ALIYA (acute kidney injury) Code(s): N17.9 - ACUTE KIDNEY FAILURE, UNSPECIFIED (2) Altered mental status Code(s): R41.82 - ALTERED MENTAL STATUS, UNSPECIFIED Assessment/Plan Current Medications Generic Name Dose Route Start Last Admin Trade Name Freq PRN Reason Stop Dose Admin Acetaminophen 650 mg 12/10/18 20:42 12/14/18 09:58 Tylenol - PO 650 mg Q6H PRN Administration FEVER Atorvastatin Calcium 80 mg 12/10/18 22:00 12/19/18 21:46 Lipitor - PO 80 mg HS JONNY Administration Carvedilol 25 mg 12/17/18 22:00 12/20/18 09:19 Coreg - PO 25 mg BID JONNY Administration Haloperidol 2 mg 12/11/18 22:00 12/20/18 09:20 Haldol - PO 2 mg BID JONNY Administration Piperacillin Sod/Tazobactam 50 mls @ 100 mls/hr 12/17/18 16:00 12/20/18 09:19 Sod 2.25 gm/ Dextrose IVPB 100 mls/hr Q8H-IV JONNY Administration Metronidazole 500 mg in 100 mls @ 100 mls/hr 12/17/18 16:30 12/20/18 09:19 Flagyl 500mg Premixed Ivpb - IVPB 100 mls/hr Q8H-IV JONNY Administration Losartan Potassium 50 mg 12/11/18 10:00 12/20/18 09:19 Cozaar - PO 50 mg DAILY JONNY Administration Tamsulosin HCl 0.4 mg 12/10/18 22:00 12/19/18 21:46 Flomax - PO 0.4 mg HS JONNY Administration Microbiology 12/18/18 06:30 Urine - Urine - Catheterized Urine Culture - Final NO GROWTH OBTAINED 12/18/18 18:22 Blood - Peripheral Venous Blood Culture - Preliminary NO GROWTH OBTAINED AFTER 24 HOURS, INCUBATION TO CONTINUE FOR 4 DAYS. 12/18/18 18:22 Blood - Peripheral Venous Blood Culture - Preliminary NO GROWTH OBTAINED AFTER 24 HOURS, INCUBATION TO CONTINUE FOR 4 DAYS. Impression 1. ALIYA vs CKD 2. HTN 3. CHF 4. weakness 5. dementia 6. bilateral hydroceles Plan - renal function stable - urology follow up - pt with hydroceles - cultures negative so far - avoid nsaids
--- NOTE | 2018-12-20 18:37 | PN ---
Progress Note, Physician - Current Medication List Current Medications: Active Medications Acetaminophen (Tylenol -) 650 mg PO Q6H PRN PRN Reason: FEVER Last Admin: 12/14/18 09:58 Dose: 650 mg Atorvastatin Calcium (Lipitor -) 80 mg PO [facility] Last Admin: 12/19/18 21:46 Dose: 80 mg Carvedilol (Coreg -) 25 mg PO BID [facility] Last Admin: 12/20/18 09:19 Dose: 25 mg Haloperidol (Haldol -) 2 mg PO BID [facility] Last Admin: 12/20/18 09:20 Dose: 2 mg Piperacillin Sod/Tazobactam (Sod 2.25 gm/ Dextrose) 50 mls @ 100 mls/hr IVPB Q8H-IV [facility] Last Admin: 12/20/18 17:10 Dose: 100 mls/hr Metronidazole (Flagyl 500mg Premixed Ivpb -) 500 mg in 100 mls @ 100 mls/hr IVPB Q8H-IV [facility] Last Admin: 12/20/18 17:49 Dose: 100 mls/hr Losartan Potassium (Cozaar -) 50 mg PO DAILY [facility] Last Admin: 12/20/18 09:19 Dose: 50 mg Tamsulosin HCl (Flomax -) 0.4 mg PO [facility] Last Admin: 12/19/18 21:46 Dose: 0.4 mg - Objective Vital Signs: Vital Signs Temperature 98 F 12/20/18 16:56 Pulse Rate 78 12/20/18 17:55 Respiratory Rate 20 12/20/18 17:55 Blood Pressure 132/75 12/20/18 17:55 O2 Sat by Pulse Oximetry (%) 98 12/20/18 09:00 Constitutional: Yes: No Distress HENT: Yes: Atraumatic Neck: Yes: Supple Cardiovascular: Yes: Regular Rate and Rhythm Respiratory: Yes: CTA Bilaterally Gastrointestinal: Yes: Normal Bowel Sounds Extremities: Yes: WNL Neurological: Yes: Alert Labs: CBC, BMP 12/20/18 07:30 12/19/18 05:39 INR, PTT INR 1.62 (0.83-1.09) H 12/10/18 15:07 Problem List - Problems (1) ALIYA (acute kidney injury) Assessment/Plan: monitor improving renal consult Code(s): N17.9 - ACUTE KIDNEY FAILURE, UNSPECIFIED (2) Altered mental status Assessment/Plan: doing well alert talking Code(s): R41.82 - ALTERED MENTAL STATUS, UNSPECIFIED (3) Elevated troponin I level Code(s): R79.89 - OTHER SPECIFIED ABNORMAL FINDINGS OF BLOOD CHEMISTRY (4) Pneumonia Code(s): J18.9 - PNEUMONIA, UNSPECIFIED ORGANISM (5) UTI (urinary tract infection) Assessment/Plan: on abx cxs noted Code(s): N39.0 - URINARY TRACT INFECTION, SITE NOT SPECIFIED (6) HTN (hypertension) Code(s): I10 - ESSENTIAL (PRIMARY) HYPERTENSION Qualifiers: Hypertension type: essential hypertension Qualified Code(s): I10 - Essential (primary) hypertension (7) Hypercholesterolemia Code(s): E78.00 - PURE HYPERCHOLESTEROLEMIA, UNSPECIFIED (8) Hydrocele in adult Assessment/Plan: us ..done urology on board cysto?? Code(s): N43.3 - HYDROCELE, UNSPECIFIED (9) Dementia Code(s): F03.90 - UNSPECIFIED DEMENTIA WITHOUT BEHAVIORAL DISTURBANCE Qualifiers: Dementia type: unspecified type (10) Leukocytosis Code(s): D72.829 - ELEVATED WHITE BLOOD CELL COUNT, UNSPECIFIED
[2018-12-20] MEDS: TAMSULOSIN HCL 0.4 MG CAP PO SCH (21:07)
[2018-12-20] MEDS: ATORVASTATIN CA 80 MG TABLET (FP) PO SCH (21:07)
[2018-12-21] MEDS ORDERED: DEXTROSE 5%-WATER - 50 ML IVPB ONE ×2 (00:10→08:50)
[2018-12-21] MEDS ORDERED: PIPERACILLIN/TAZOBACTAM 2.25 GM VIAL IVPB ONE ×2 (00:10→08:50)
[2018-12-21] MEDS: PIPERACILLIN/TAZOB 2.25 GM 2.25 GM in DEXTROSE 5%-WATER - 50 ML IVPB SCH ×2 (01:05→10:38)
[2018-12-21 08:06] LABS: HEMATOCRIT 32.2 % (35.4-49); HEMOGLOBIN 10.3 GM/dL (11.7-16.9); MCH 29.7 pg (25.7-33.7); MEAN CELL VOLUME 92.7 fl (80-96); MEAN PLT VOLUME 11.3 fl (7.5-11.1); PLATELET COUNT 225 K/MM3 (134-434); RBC 3.47 M/mm3 (4.00-5.60); RDW 14.9 % (11.9-15.9); WHITE BLOOD COUNT 9.1 K/mm3 (4.0-10.0)
--- NOTE | 2018-12-21 10:36 | PN ---
Progress Note, Physician History of Present Illness: Denies chest pain, SOB or palpitations, resting comfortably in bed. Scrotal US shows bilateral hydroceles. - Current Medication List Current Medications: Active Medications Acetaminophen (Tylenol -) 650 mg PO Q6H PRN PRN Reason: FEVER Last Admin: 12/14/18 09:58 Dose: 650 mg Atorvastatin Calcium (Lipitor -) 80 mg PO [facility] Last Admin: 12/20/18 21:07 Dose: 80 mg Carvedilol (Coreg -) 25 mg PO BID [facility] Last Admin: 12/20/18 21:07 Dose: 25 mg Haloperidol (Haldol -) 2 mg PO BID [facility] Last Admin: 12/20/18 21:07 Dose: 2 mg Piperacillin Sod/Tazobactam (Sod 2.25 gm/ Dextrose) 50 mls @ 100 mls/hr IVPB Q8H-IV [facility] Last Admin: 12/21/18 01:05 Dose: 100 mls/hr Metronidazole (Flagyl 500mg Premixed Ivpb -) 500 mg in 100 mls @ 100 mls/hr IVPB Q8H-IV [facility] Last Admin: 12/21/18 01:28 Dose: 100 mls/hr Losartan Potassium (Cozaar -) 50 mg PO DAILY [facility] Last Admin: 12/20/18 09:19 Dose: 50 mg Tamsulosin HCl (Flomax -) 0.4 mg PO [facility] Last Admin: 12/20/18 21:07 Dose: 0.4 mg - Objective Vital Signs: Vital Signs Temperature 98.2 F 12/21/18 10:33 Pulse Rate 74 12/21/18 10:33 Respiratory Rate 18 12/21/18 10:33 Blood Pressure 141/73 12/21/18 10:33 O2 Sat by Pulse Oximetry (%) 98 12/20/18 20:43 Constitutional: Yes: No Distress, Calm Neck: Yes: Supple Cardiovascular: Yes: Regular Rate and Rhythm Respiratory: Yes: Regular, Diminished Gastrointestinal: Yes: Normal Bowel Sounds, Soft Edema: No Labs: CBC, BMP 12/21/18 07:32 12/19/18 05:39 INR, PTT INR 1.62 (0.83-1.09) H 12/10/18 15:07 Problem List - Problems (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 Code(s): I51.89 - OTHER ILL-DEFINED HEART DISEASES (2) ALIYA (acute kidney injury) Code(s): N17.9 - ACUTE KIDNEY FAILURE, UNSPECIFIED (3) Dementia Code(s): F03.90 - UNSPECIFIED DEMENTIA WITHOUT BEHAVIORAL DISTURBANCE Qualifiers: Dementia type: unspecified type (4) Elevated troponin I level Code(s): R79.89 - OTHER SPECIFIED ABNORMAL FINDINGS OF BLOOD CHEMISTRY (5) HTN (hypertension) Code(s): I10 - ESSENTIAL (PRIMARY) HYPERTENSION Qualifiers: Hypertension type: essential hypertension Qualified Code(s): I10 - Essential (primary) hypertension (6) Hypercholesterolemia Code(s): E78.00 - PURE HYPERCHOLESTEROLEMIA, UNSPECIFIED (7) Leukocytosis Code(s): D72.829 - ELEVATED WHITE BLOOD CELL COUNT, UNSPECIFIED (8) Transaminitis Code(s): R74.0 - NONSPEC ELEV OF LEVELS OF TRANSAMNS & LACTIC ACID DEHYDRGNSE Assessment/Plan 12/12/2018 Echo: Mildly dilated with moderate-severe decreased LVEF 35-40%, mild MR, TR, mild AR, mod ADAM, restrictive physiology 1. Shortness of breath, weakness with small pleural effusion improving 2/2 2. 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 HTN heart disease not at goal BP 4. Hypercholesterolemia 5. Organic brain syndrome/dementia 6. Leukocytosis and diarrhea resolving, ruled out c. diff 7. Abnormal LFT c/w hepatic congestion improving 8. Acute on CKD improving 9. NSVT 10. Large bilateral hydroceles PLAN: 1. Continue Carvedilol 25 bid, Losartan 50 qd and Atorvastatin 80 qhs as tolerated 2. Not on aldosterone inhibition due to CKD, eventual cystoscopy, hydrocele repair 3. Continue empiric antibiotic coverage 4. Troponin plateaued, WBC trending downwards 5. DVT prophylaxis
[2018-12-21] MEDS: CARVEDILOL 25 MG TABLET (FP) PO SCH ×2 (10:40→22:41)
[2018-12-21] MEDS: LOSARTAN POTASSIUM 50 MG TABLET (FP) PO SCH (10:40)
[2018-12-21] MEDS: HALOPERIDOL 2 MG TABLET PO SCH ×2 (10:41→22:41)
--- NOTE | 2018-12-21 11:45 | PN ---
Progress Note, Physician History of Present Illness: patient stable no new issues wbc normal - Current Medication List Current Medications: Active Medications Acetaminophen (Tylenol -) 650 mg PO Q6H PRN PRN Reason: FEVER Last Admin: 12/14/18 09:58 Dose: 650 mg Atorvastatin Calcium (Lipitor -) 80 mg PO HS [facility] Last Admin: 12/20/18 21:07 Dose: 80 mg Carvedilol (Coreg -) 25 mg PO BID [facility] Last Admin: 12/21/18 10:40 Dose: 25 mg Haloperidol (Haldol -) 2 mg PO BID [facility] Last Admin: 12/21/18 10:41 Dose: 2 mg Piperacillin Sod/Tazobactam (Sod 2.25 gm/ Dextrose) 50 mls @ 100 mls/hr IVPB Q8H-IV [facility] Last Admin: 12/21/18 10:38 Dose: 100 mls/hr Metronidazole (Flagyl 500mg Premixed Ivpb -) 500 mg in 100 mls @ 100 mls/hr IVPB Q8H-IV [facility] Last Admin: 12/21/18 10:39 Dose: 100 mls/hr Losartan Potassium (Cozaar -) 50 mg PO DAILY [facility] Last Admin: 12/21/18 10:40 Dose: 50 mg Tamsulosin HCl (Flomax -) 0.4 mg PO [facility] Last Admin: 12/20/18 21:07 Dose: 0.4 mg - Objective Vital Signs: Vital Signs Temperature 98.2 F 12/21/18 10:33 Pulse Rate 74 12/21/18 10:33 Respiratory Rate 18 12/21/18 10:33 Blood Pressure 141/73 12/21/18 10:33 O2 Sat by Pulse Oximetry (%) 98 12/20/18 20:43 Constitutional: Yes: No Distress, Calm Cardiovascular: Yes: S1, S2 Respiratory: Yes: Regular, CTA Bilaterally Gastrointestinal: Yes: Normal Bowel Sounds, Soft Genitourinary: Yes: Other (hydrocele) Musculoskeletal: Yes: WNL Extremities: Yes: WNL Neurological: Yes: Alert, Oriented Psychiatric: Yes: Alert, Oriented Labs: CBC, BMP 12/21/18 07:32 12/19/18 05:39 INR, PTT INR 1.62 (0.83-1.09) H 12/10/18 15:07 Assessment/Plan dirrhoea weakness uti leukocytosis plan continue abx wbc has normalized will stop abx and changed to oral falgyl
[2018-12-21] MEDS ORDERED: ALBUTEROL SO4 2.5/IPRATROPIUM 0.5 INH SOL 3 ML VIAL.NEB. NEB PRN (14:00)
--- NOTE | 2018-12-21 14:26 | PN ---
Progress Note, Physician History of Present Illness: Pt seen and examined at bedside. He is awake and appears comfortable. Family are at bedside. - Current Medication List Current Medications: Active Medications Acetaminophen (Tylenol -) 650 mg PO Q6H PRN PRN Reason: FEVER Last Admin: 12/14/18 09:58 Dose: 650 mg Atorvastatin Calcium (Lipitor -) 80 mg PO HS [facility] Last Admin: 12/20/18 21:07 Dose: 80 mg Carvedilol (Coreg -) 25 mg PO BID [facility] Last Admin: 12/21/18 10:40 Dose: 25 mg Haloperidol (Haldol -) 2 mg PO BID [facility] Last Admin: 12/21/18 10:41 Dose: 2 mg Losartan Potassium (Cozaar -) 50 mg PO DAILY [facility] Last Admin: 12/21/18 10:40 Dose: 50 mg Metronidazole (Flagyl -) 500 mg PO TID [facility] Tamsulosin HCl (Flomax -) 0.4 mg PO HS [facility] Last Admin: 12/20/18 21:07 Dose: 0.4 mg - Objective Vital Signs: Vital Signs Temperature 98.2 F 12/21/18 10:33 Pulse Rate 74 12/21/18 10:33 Respiratory Rate 18 12/21/18 10:33 Blood Pressure 141/73 12/21/18 10:33 O2 Sat by Pulse Oximetry (%) 98 12/20/18 20:43 Constitutional: Yes: Calm Eyes: Yes: Conjunctiva Clear HENT: Yes: Atraumatic Neck: Yes: Supple Cardiovascular: Yes: S1, S2 Respiratory: Yes: CTA Bilaterally Gastrointestinal: Yes: Soft Genitourinary: Yes: Other (testicular swelling) Musculoskeletal: Yes: WNL Edema: No Integumentary: Yes: WNL Neurological: Yes: Confusion Labs: CBC, BMP 12/21/18 07:32 12/19/18 05:39 INR, PTT INR 1.62 (0.83-1.09) H 12/10/18 15:07 Problem List - Problems (1) ALIYA (acute kidney injury) Code(s): N17.9 - ACUTE KIDNEY FAILURE, UNSPECIFIED (2) Altered mental status Code(s): R41.82 - ALTERED MENTAL STATUS, UNSPECIFIED Assessment/Plan Current Medications Generic Name Dose Route Start Last Admin Trade Name Freq PRN Reason Stop Dose Admin Acetaminophen 650 mg 12/10/18 20:42 12/14/18 09:58 Tylenol - PO 650 mg Q6H PRN Administration FEVER Atorvastatin Calcium 80 mg 12/10/18 22:00 12/20/18 21:07 Lipitor - PO 80 mg HS JONNY Administration Carvedilol 25 mg 12/17/18 22:00 12/21/18 10:40 Coreg - PO 25 mg BID JONNY Administration Haloperidol 2 mg 12/11/18 22:00 12/21/18 10:41 Haldol - PO 2 mg BID JONNY Administration Losartan Potassium 50 mg 12/11/18 10:00 12/21/18 10:40 Cozaar - PO 50 mg DAILY JONNY Administration Metronidazole 500 mg 12/21/18 14:00 Flagyl - PO TID JONNY Tamsulosin HCl 0.4 mg 12/10/18 22:00 12/20/18 21:07 Flomax - PO 0.4 mg HS JONNY Administration Impression 1. CKD 2. HTN 3. CHF 4. weakness 5. dementia 6. bilateral hydroceles Plan - case discussed with family and pt - will need ckd workup and follow up - urology follow up - pt with hydroceles - cultures negative so far - avoid nsaids - will follow PRN
[2018-12-21] MEDS: metroNIDAZOLE 250 MG TABLET PO SCH ×2 (16:14→22:44)
--- NOTE | 2018-12-21 17:32 | PN ---
DATE OF VISIT: DATE OF DICTATION: 12/21/2018 The patient appears to be in less distress and laying in bed comfortably. Temperature is 98.2, blood pressure 142/73. BUN and creatinine are 17.3 over 1.9. His white count is down to 9000, still has acute kidney injury and altered mental status. He is on IV antibiotics. Sonogram of the scrotum revealed bilateral significant hydroceles. Will discuss subsequent treatment with family. Patient will need a cystoscopy and possibly bilateral hydrocelectomy. CAROL MICHAEL M.D. [id number]
--- NOTE | 2018-12-21 17:36 | PN ---
Progress Note, Physician - Current Medication List Current Medications: Active Medications Acetaminophen (Tylenol -) 650 mg PO Q6H PRN PRN Reason: FEVER Last Admin: 12/14/18 09:58 Dose: 650 mg Atorvastatin Calcium (Lipitor -) 80 mg PO [facility] Last Admin: 12/20/18 21:07 Dose: 80 mg Carvedilol (Coreg -) 25 mg PO BID [facility] Last Admin: 12/21/18 10:40 Dose: 25 mg Haloperidol (Haldol -) 2 mg PO BID [facility] Last Admin: 12/21/18 10:41 Dose: 2 mg Losartan Potassium (Cozaar -) 50 mg PO DAILY [facility] Last Admin: 12/21/18 10:40 Dose: 50 mg Metronidazole (Flagyl -) 500 mg PO TID [facility] Last Admin: 12/21/18 16:14 Dose: 500 mg Tamsulosin HCl (Flomax -) 0.4 mg PO [facility] Last Admin: 12/20/18 21:07 Dose: 0.4 mg - Objective Vital Signs: Vital Signs Temperature 97.4 F L 12/21/18 14:00 Pulse Rate 71 12/21/18 14:00 Respiratory Rate 18 12/21/18 14:00 Blood Pressure 139/64 12/21/18 14:00 O2 Sat by Pulse Oximetry (%) 98 12/20/18 20:43 Constitutional: Yes: No Distress HENT: Yes: Atraumatic Neck: Yes: Supple Cardiovascular: Yes: Regular Rate and Rhythm Respiratory: Yes: CTA Bilaterally Gastrointestinal: Yes: Normal Bowel Sounds Extremities: Yes: WNL Edema: No Neurological: Yes: Alert Labs: CBC, BMP 12/21/18 07:32 12/19/18 05:39 INR, PTT INR 1.62 (0.83-1.09) H 12/10/18 15:07 Problem List - Problems (1) ALIYA (acute kidney injury) Assessment/Plan: monitor improving renal consult Code(s): N17.9 - ACUTE KIDNEY FAILURE, UNSPECIFIED (2) Altered mental status Assessment/Plan: doing well alert talking Code(s): R41.82 - ALTERED MENTAL STATUS, UNSPECIFIED (3) Elevated troponin I level Code(s): R79.89 - OTHER SPECIFIED ABNORMAL FINDINGS OF BLOOD CHEMISTRY (4) Pneumonia Code(s): J18.9 - PNEUMONIA, UNSPECIFIED ORGANISM (5) UTI (urinary tract infection) Assessment/Plan: on abx cxs noted Code(s): N39.0 - URINARY TRACT INFECTION, SITE NOT SPECIFIED (6) HTN (hypertension) Code(s): I10 - ESSENTIAL (PRIMARY) HYPERTENSION Qualifiers: Hypertension type: essential hypertension Qualified Code(s): I10 - Essential (primary) hypertension (7) Hypercholesterolemia Code(s): E78.00 - PURE HYPERCHOLESTEROLEMIA, UNSPECIFIED (8) Hydrocele in adult Assessment/Plan: us ..done urology on board cysto?? Code(s): N43.3 - HYDROCELE, UNSPECIFIED (9) Dementia Code(s): F03.90 - UNSPECIFIED DEMENTIA WITHOUT BEHAVIORAL DISTURBANCE Qualifiers: Dementia type: unspecified type (10) Leukocytosis Code(s): D72.829 - ELEVATED WHITE BLOOD CELL COUNT, UNSPECIFIED
[2018-12-21] MEDS ORDERED: PT OWN MED DRAWER 7, Y5N ONE (21:49)
[2018-12-21] MEDS: ATORVASTATIN CA 80 MG TABLET (FP) PO SCH (22:40)
[2018-12-21] MEDS: TAMSULOSIN HCL 0.4 MG CAP PO SCH (22:40)
[2018-12-22] MEDS: metroNIDAZOLE 250 MG TABLET PO SCH ×3 (05:59→22:31)
[2018-12-22 07:53] LABS: HEMATOCRIT 30.5 % (35.4-49); HEMOGLOBIN 9.8 GM/dL (11.7-16.9); MCHC 32.3 g/dl (32.0-35.9); MEAN CELL VOLUME 92.7 fl (80-96); MEAN PLT VOLUME 11.6 fl (7.5-11.1); PLATELET COUNT 216 K/MM3 (134-434); RBC 3.28 M/mm3 (4.00-5.60); RDW 14.7 % (11.9-15.9); WHITE BLOOD COUNT 9.3 K/mm3 (4.0-10.0)
[2018-12-22] MEDS ORDERED: PT OWN MED DRAWER 7, Y5N ONE (10:04)
[2018-12-22] MEDS: LOSARTAN POTASSIUM 50 MG TABLET (FP) PO SCH (10:06)
[2018-12-22] MEDS: CARVEDILOL 25 MG TABLET (FP) PO SCH ×2 (10:06→22:31)
[2018-12-22] MEDS: HALOPERIDOL 2 MG TABLET PO SCH ×2 (10:07→22:32)
--- NOTE | 2018-12-22 17:23 | PN ---
Physical Exam: SUBJECTIVE: Patient seen and examined. He is confused. He complains of scrotal discomfort. OBJECTIVE: Vital Signs Period Temp Pulse Resp BP Sys/Diaz Pulse Ox Last 24 Hr 97.3 F-98.1 F 61-75 18-21 119-157/73-84 GENERAL: The patient is awake, alert, confused, in no acute distress. LUNGS: Breath sounds equal, clear to auscultation bilaterally, no wheezes, no crackles, no accessory muscle use. HEART: Regular rate and rhythm, S1, S2 without murmur, rub or gallop. ABDOMEN: Soft, nontender, nondistended, normoactive bowel sounds, no guarding, no rebound, no hepatosplenomegaly, no masses. EXTREMITIES: 2+ pulses, warm, well-perfused, no edema. GENITOURINARY: Bilateral scrotal swelling Laboratory Results - last 24 hr 12/22/18 06:59 WBC 9.3 RBC 3.28 L Hgb 9.8 L Hct 30.5 L MCV 92.7 MCH 30.0 MCHC 32.3 RDW 14.7 Plt Count 216 MPV 11.6 H Active Medications Generic Name Dose Route Start Last Admin Trade Name Freq PRN Reason Stop Dose Admin Acetaminophen 650 mg 12/10/18 20:42 12/14/18 09:58 Tylenol - PO 650 mg Q6H PRN Administration FEVER Atorvastatin Calcium 80 mg 12/10/18 22:00 12/21/18 22:40 Lipitor - PO 80 mg HS JONNY Administration Carvedilol 25 mg 12/17/18 22:00 12/22/18 10:06 Coreg - PO 25 mg BID JONNY Administration Haloperidol 2 mg 12/11/18 22:00 12/22/18 10:07 Haldol - PO 2 mg BID JONNY Administration Losartan Potassium 50 mg 12/11/18 10:00 12/22/18 10:06 Cozaar - PO 50 mg DAILY JONNY Administration Metronidazole 500 mg 12/21/18 14:00 12/22/18 13:18 Flagyl - PO 500 mg TID JONNY Administration Tamsulosin HCl 0.4 mg 12/10/18 22:00 12/21/18 22:40 Flomax - PO 0.4 mg HS JONNY Administration ASSESSMENT/PLAN: This is a 78 year old man with a history of HTN, hyperlipidemia, CHF, BPH, dementia who presented to the ED with generalized weakness. 1. Bilateral hydroceles - Will need cystoscopy and repair 2. Acute on chronic systolic heart failure - Resolved - Continue Cozaar, Coreg 3. Acute kidney injury - Improving 4. CKD, probable stage 3 - Baseline creatinine not known 5. HTN - Continue Coreg, Cozaar 6. Hyperlipidemia - Continue Lipitor 7. UTI - Completed antibiotics 8. Diarrhea - Resolved - C. diff negative - Continue Flagyl per ID 9. Dementia - Continue Haldol 10. Hepatic transaminitis - Secondary to acute heart failure - Improving 11. NSVT 12. BPH - Continue Flomax Visit type - Emergency Visit Emergency Visit: Yes ED Registration Date: 12/10/18 Care time: The patient presented to the Emergency Department on the above date and was hospitalized for further evaluation of their emergent condition. - New Patient This patient is new to me today: Yes Date on this admission: 12/22/18 - Critical Care Critical Care patient: No - Discharge Referral Referred to [facility] Med P.C.: No
--- NOTE | 2018-12-22 19:24 | PN ---
Progress Note, Physician History of Present Illness: Pt states he feels well. Denies pain. No loose BMs today. - Current Medication List Current Medications: Active Medications Acetaminophen (Tylenol -) 650 mg PO Q6H PRN PRN Reason: FEVER Last Admin: 12/14/18 09:58 Dose: 650 mg Atorvastatin Calcium (Lipitor -) 80 mg PO [facility] Last Admin: 12/21/18 22:40 Dose: 80 mg Carvedilol (Coreg -) 25 mg PO BID [facility] Last Admin: 12/22/18 10:06 Dose: 25 mg Haloperidol (Haldol -) 2 mg PO BID [facility] Last Admin: 12/22/18 10:07 Dose: 2 mg Losartan Potassium (Cozaar -) 50 mg PO DAILY [facility] Last Admin: 12/22/18 10:06 Dose: 50 mg Metronidazole (Flagyl -) 500 mg PO TID [facility] Last Admin: 12/22/18 13:18 Dose: 500 mg Tamsulosin HCl (Flomax -) 0.4 mg PO [facility] Last Admin: 12/21/18 22:40 Dose: 0.4 mg - Objective Vital Signs: Vital Signs Temperature 98.4 F 12/22/18 17:23 Pulse Rate 75 12/22/18 17:23 Respiratory Rate 20 12/22/18 17:23 Blood Pressure 134/56 L 12/22/18 17:23 O2 Sat by Pulse Oximetry (%) 98 12/21/18 09:00 Constitutional: Yes: No Distress Cardiovascular: Yes: Regular Rate and Rhythm Respiratory: Yes: Regular Gastrointestinal: Yes: Normal Bowel Sounds, Soft Extremities: Yes: WNL Integumentary: Yes: WNL Neurological: Yes: Alert Labs: CBC, BMP 12/22/18 06:59 12/19/18 05:39 INR, PTT INR 1.62 (0.83-1.09) H 12/10/18 15:07 Microbiology 12/18/18 18:22 Blood - Peripheral Venous Blood Culture - Preliminary NO GROWTH OBTAINED AFTER 96 HOURS, INCUBATION TO CONTINUE FOR 1 DAYS. 12/18/18 18:22 Blood - Peripheral Venous Blood Culture - Preliminary NO GROWTH OBTAINED AFTER 96 HOURS, INCUBATION TO CONTINUE FOR 1 DAYS. 12/18/18 06:30 Urine - Urine - Catheterized Urine Culture - Final NO GROWTH OBTAINED 12/10/18 16:40 Blood - Peripheral Venous Blood Culture - Final NO GROWTH AFTER 5 DAYS INCUBATION 12/10/18 16:40 Blood - Peripheral Venous Blood Culture - Final NO GROWTH AFTER 5 DAYS INCUBATION 12/12/18 20:00 Stool Clostridioides difficile Antigen - Final 12/12/18 20:00 Stool Clostridioides difficile Toxin Assay - Final 12/10/18 15:10 Urine - Urine Clean Catch Urine Culture - Final Mr Gilbert Gutierrez Problem List - Problems (1) ALIYA (acute kidney injury) Code(s): N17.9 - ACUTE KIDNEY FAILURE, UNSPECIFIED (2) Dementia Code(s): F03.90 - UNSPECIFIED DEMENTIA WITHOUT BEHAVIORAL DISTURBANCE Qualifiers: Dementia type: unspecified type (3) HTN (hypertension) Code(s): I10 - ESSENTIAL (PRIMARY) HYPERTENSION Qualifiers: Hypertension type: essential hypertension Qualified Code(s): I10 - Essential (primary) hypertension (4) Hydrocele in adult Code(s): N43.3 - HYDROCELE, UNSPECIFIED (5) Leukocytosis Code(s): D72.829 - ELEVATED WHITE BLOOD CELL COUNT, UNSPECIFIED (6) UTI (urinary tract infection) Code(s): N39.0 - URINARY TRACT INFECTION, SITE NOT SPECIFIED Assessment/Plan Diarrhea UTI Leukocytosis -- s/p treatment for UTI -- continue flagyl po -- wbc is normal, diarrhea resolved
[2018-12-22] MEDS: TAMSULOSIN HCL 0.4 MG CAP PO SCH (22:31)
[2018-12-22] MEDS: ATORVASTATIN CA 80 MG TABLET (FP) PO SCH (22:32)
[2018-12-23] MEDS: metroNIDAZOLE 250 MG TABLET PO SCH ×3 (05:58→21:43)
[2018-12-23 07:08] LABS: HEMATOCRIT 33.8 % (35.4-49); HEMOGLOBIN 11.1 GM/dL (11.7-16.9); MCH 30.2 pg (25.7-33.7); MCHC 32.7 g/dl (32.0-35.9); MEAN CELL VOLUME 92.5 fl (80-96); MEAN PLT VOLUME 11.5 fl (7.5-11.1); PLATELET COUNT 249 K/MM3 (134-434); RBC 3.66 M/mm3 (4.00-5.60); RDW 14.5 % (11.9-15.9); WHITE BLOOD COUNT 8.4 K/mm3 (4.0-10.0)
[2018-12-23 07:30] LABS: BLOOD UREA NITROGEN 14.7 mg/dL (7-18); CALCIUM 8.2 mg/dL (8.5-10.1); CREATININE 1.9 mg/dL (0.55-1.3); POTASSIUM 4.1 mmol/L (3.5-5.1)
[2018-12-23] MEDS ORDERED: PT OWN MED DRAWER 7, Y5N ONE ×2 (09:15→20:44)
[2018-12-23] MEDS: LOSARTAN POTASSIUM 50 MG TABLET (FP) PO SCH (09:17)
[2018-12-23] MEDS: CARVEDILOL 25 MG TABLET (FP) PO SCH ×2 (09:17→21:43)
[2018-12-23] MEDS: HALOPERIDOL 2 MG TABLET PO SCH ×2 (09:17→21:43)
--- NOTE | 2018-12-23 19:40 | PN ---
Progress Note, Physician History of Present Illness: Pt is alert, afebrile. Denies having any complaints and wishes to go home. No recent diarrhea noted, no abd pain. - Current Medication List Current Medications: Active Medications Acetaminophen (Tylenol -) 650 mg PO Q6H PRN PRN Reason: FEVER Last Admin: 12/14/18 09:58 Dose: 650 mg Atorvastatin Calcium (Lipitor -) 80 mg PO [facility] Last Admin: 12/22/18 22:32 Dose: 80 mg Carvedilol (Coreg -) 25 mg PO BID [facility] Last Admin: 12/23/18 09:17 Dose: 25 mg Haloperidol (Haldol -) 2 mg PO BID [facility] Last Admin: 12/23/18 09:17 Dose: 2 mg Losartan Potassium (Cozaar -) 50 mg PO DAILY [facility] Last Admin: 12/23/18 09:17 Dose: 50 mg Metronidazole (Flagyl -) 500 mg PO TID [facility] Last Admin: 12/23/18 13:35 Dose: 500 mg Tamsulosin HCl (Flomax -) 0.4 mg PO [facility] Last Admin: 12/22/18 22:31 Dose: 0.4 mg - Objective Vital Signs: Vital Signs Temperature 98.1 F 12/23/18 16:58 Pulse Rate 67 12/23/18 16:58 Respiratory Rate 20 12/23/18 16:58 Blood Pressure 112/70 12/23/18 16:58 O2 Sat by Pulse Oximetry (%) 98 12/22/18 21:00 Constitutional: Yes: No Distress Eyes: Yes: Conjunctiva Clear Cardiovascular: Yes: Regular Rate and Rhythm Respiratory: Yes: Regular Gastrointestinal: Yes: Normal Bowel Sounds, Soft Integumentary: Yes: WNL Neurological: Yes: Alert Labs: CBC, BMP 12/23/18 05:50 12/23/18 05:50 INR, PTT INR 1.62 (0.83-1.09) H 12/10/18 15:07 Microbiology 12/18/18 18:22 Blood - Peripheral Venous Blood Culture - Final NO GROWTH AFTER 5 DAYS INCUBATION 12/18/18 18:22 Blood - Peripheral Venous Blood Culture - Final NO GROWTH AFTER 5 DAYS INCUBATION 12/18/18 06:30 Urine - Urine - Catheterized Urine Culture - Final NO GROWTH OBTAINED 12/10/18 16:40 Blood - Peripheral Venous Blood Culture - Final NO GROWTH AFTER 5 DAYS INCUBATION 12/10/18 16:40 Blood - Peripheral Venous Blood Culture - Final NO GROWTH AFTER 5 DAYS INCUBATION 12/12/18 20:00 Stool Clostridioides difficile Antigen - Final 12/12/18 20:00 Stool Clostridioides difficile Toxin Assay - Final 12/10/18 15:10 Urine - Urine Clean Catch Urine Culture - Final Mr Gilbert Gutierrez Problem List - Problems (1) ALIYA (acute kidney injury) Code(s): N17.9 - ACUTE KIDNEY FAILURE, UNSPECIFIED (2) Dementia Code(s): F03.90 - UNSPECIFIED DEMENTIA WITHOUT BEHAVIORAL DISTURBANCE Qualifiers: Dementia type: unspecified type (3) HTN (hypertension) Code(s): I10 - ESSENTIAL (PRIMARY) HYPERTENSION Qualifiers: Hypertension type: essential hypertension Qualified Code(s): I10 - Essential (primary) hypertension (4) Hydrocele in adult Code(s): N43.3 - HYDROCELE, UNSPECIFIED (5) Leukocytosis Code(s): D72.829 - ELEVATED WHITE BLOOD CELL COUNT, UNSPECIFIED (6) UTI (urinary tract infection) Code(s): N39.0 - URINARY TRACT INFECTION, SITE NOT SPECIFIED Assessment/Plan Diarrhea UTI Leukocytosis -- clinically improved diarrhea resolved, wbc normal continue Flagyl po
[2018-12-23] MEDS: ATORVASTATIN CA 80 MG TABLET (FP) PO SCH (21:43)
[2018-12-23] MEDS: TAMSULOSIN HCL 0.4 MG CAP PO SCH (21:43)
--- NOTE | 2018-12-23 22:18 | PN ---
Progress Note, Physician History of Present Illness: No new complaints - Current Medication List Current Medications: Active Medications Acetaminophen (Tylenol -) 650 mg PO Q6H PRN PRN Reason: FEVER Last Admin: 12/14/18 09:58 Dose: 650 mg Atorvastatin Calcium (Lipitor -) 80 mg PO HS [facility] Last Admin: 12/23/18 21:43 Dose: 80 mg Carvedilol (Coreg -) 25 mg PO BID [facility] Last Admin: 12/23/18 21:43 Dose: 25 mg Haloperidol (Haldol -) 2 mg PO BID [facility] Last Admin: 12/23/18 21:43 Dose: 2 mg Losartan Potassium (Cozaar -) 50 mg PO DAILY [facility] Last Admin: 12/23/18 09:17 Dose: 50 mg Metronidazole (Flagyl -) 500 mg PO TID [facility] Last Admin: 12/23/18 21:43 Dose: 500 mg Tamsulosin HCl (Flomax -) 0.[address] [facility] Last Admin: 12/23/18 21:43 Dose: 0.4 mg - Objective Vital Signs: Vital Signs Temperature 98.2 F 12/23/18 22:00 Pulse Rate 78 12/23/18 22:00 Respiratory Rate 18 12/23/18 22:00 Blood Pressure 129/57 L 12/23/18 22:00 O2 Sat by Pulse Oximetry (%) 98 12/22/18 21:00 Cardiovascular: Yes: WNL, Regular Rate and Rhythm Respiratory: Yes: WNL, Regular, CTA Bilaterally Gastrointestinal: Yes: WNL, Normal Bowel Sounds, Soft Labs: CBC, BMP 12/23/18 05:50 12/23/18 05:50 INR, PTT INR 1.62 (0.83-1.09) H 12/10/18 15:07 Problem List - Problems (1) Leukocytosis Code(s): D72.829 - ELEVATED WHITE BLOOD CELL COUNT, UNSPECIFIED (2) ALIYA (acute kidney injury) Code(s): N17.9 - ACUTE KIDNEY FAILURE, UNSPECIFIED (3) Dementia Code(s): F03.90 - UNSPECIFIED DEMENTIA WITHOUT BEHAVIORAL DISTURBANCE Qualifiers: Dementia type: unspecified type (4) Elevated troponin I level Code(s): R79.89 - OTHER SPECIFIED ABNORMAL FINDINGS OF BLOOD CHEMISTRY (5) HTN (hypertension) Code(s): I10 - ESSENTIAL (PRIMARY) HYPERTENSION Qualifiers: Hypertension type: essential hypertension Qualified Code(s): I10 - Essential (primary) hypertension (6) Hypercholesterolemia Code(s): E78.00 - PURE HYPERCHOLESTEROLEMIA, UNSPECIFIED (7) Transaminitis Code(s): R74.0 - NONSPEC ELEV OF LEVELS OF TRANSAMNS & LACTIC ACID DEHYDRGNSE
[2018-12-24] MEDS: metroNIDAZOLE 250 MG TABLET PO SCH ×3 (06:00→21:25)
--- NOTE | 2018-12-24 09:27 | PN ---
Progress Note, Physician History of Present Illness: Denies chest pain, SOB or palpitations, resting comfortably in bed. Diarrhea has resolved. - Current Medication List Current Medications: Active Medications Acetaminophen (Tylenol -) 650 mg PO Q6H PRN PRN Reason: FEVER Last Admin: 12/14/18 09:58 Dose: 650 mg Atorvastatin Calcium (Lipitor -) 80 mg PO [facility] Last Admin: 12/23/18 21:43 Dose: 80 mg Carvedilol (Coreg -) 25 mg PO BID [facility] Last Admin: 12/23/18 21:43 Dose: 25 mg Haloperidol (Haldol -) 2 mg PO BID [facility] Last Admin: 12/23/18 21:43 Dose: 2 mg Losartan Potassium (Cozaar -) 50 mg PO DAILY [facility] Last Admin: 12/23/18 09:17 Dose: 50 mg Metronidazole (Flagyl -) 500 mg PO TID [facility] Last Admin: 12/24/18 06:00 Dose: 500 mg Tamsulosin HCl (Flomax -) 0.4 mg PO [facility] Last Admin: 12/23/18 21:43 Dose: 0.4 mg - Objective Vital Signs: Vital Signs Temperature 98.7 F 12/24/18 07:00 Pulse Rate 78 12/24/18 07:00 Respiratory Rate 18 12/24/18 07:00 Blood Pressure 146/80 12/24/18 07:00 O2 Sat by Pulse Oximetry (%) 98 12/22/18 21:00 Constitutional: Yes: No Distress, Calm, Thin Neck: Yes: Supple Cardiovascular: Yes: Regular Rate and Rhythm Respiratory: Yes: Regular, Diminished Gastrointestinal: Yes: Normal Bowel Sounds, Soft Edema: Yes Edema: LLE: Trace, RLE: Trace Labs: CBC, BMP 12/23/18 05:50 12/23/18 05:50 INR, PTT INR 1.62 (0.83-1.09) H 12/10/18 15:07 Problem List - Problems (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 Code(s): I51.89 - OTHER ILL-DEFINED HEART DISEASES (2) ALIYA (acute kidney injury) Code(s): N17.9 - ACUTE KIDNEY FAILURE, UNSPECIFIED (3) Dementia Code(s): F03.90 - UNSPECIFIED DEMENTIA WITHOUT BEHAVIORAL DISTURBANCE Qualifiers: Dementia type: unspecified type (4) Elevated troponin I level Code(s): R79.89 - OTHER SPECIFIED ABNORMAL FINDINGS OF BLOOD CHEMISTRY (5) HTN (hypertension) Code(s): I10 - ESSENTIAL (PRIMARY) HYPERTENSION Qualifiers: Hypertension type: essential hypertension Qualified Code(s): I10 - Essential (primary) hypertension (6) Hypercholesterolemia Code(s): E78.00 - PURE HYPERCHOLESTEROLEMIA, UNSPECIFIED (7) Leukocytosis Code(s): D72.829 - ELEVATED WHITE BLOOD CELL COUNT, UNSPECIFIED (8) Transaminitis Code(s): R74.0 - NONSPEC ELEV OF LEVELS OF TRANSAMNS & LACTIC ACID DEHYDRGNSE Assessment/Plan 12/12/2018 Echo: Mildly dilated with moderate-severe decreased LVEF 35-40%, mild MR, TR, mild AR, mod ADAM, restrictive physiology 1. Shortness of breath, weakness with small pleural effusion improving 2/2 2. 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 HTN heart disease not at goal BP 4. Hypercholesterolemia 5. Organic brain syndrome/dementia 6. Leukocytosis and diarrhea resolving, ruled out c. diff 7. Abnormal LFT c/w hepatic congestion improving 8. Acute on CKD improving 9. NSVT 10. Large bilateral hydroceles PLAN: 1. Continue Carvedilol 25 bid, Losartan 50 qd and Atorvastatin 80 qhs as tolerated 2. Not on aldosterone inhibition due to CKD, eventual cystoscopy, hydrocele repair 3. Complete empiric antibiotic coverage 4. Troponin plateaued, WBC trending downwards 5. DVT prophylaxis
[2018-12-24] MEDS ORDERED: PT OWN MED DRAWER 7, Y5N ONE ×2 (09:40→21:36)
[2018-12-24] MEDS: LOSARTAN POTASSIUM 50 MG TABLET (FP) PO SCH (09:44)
[2018-12-24] MEDS: CARVEDILOL 25 MG TABLET (FP) PO SCH ×2 (09:44→21:29)
[2018-12-24] MEDS: HALOPERIDOL 2 MG TABLET PO SCH ×2 (09:45→21:47)
[2018-12-24] MEDS: HEPARIN NA (PORCINE) 5,000 UNITS/ML 1ML VIAL SQ SCH ×2 (09:53→21:22)
--- NOTE | 2018-12-24 10:59 | PN ---
Progress Note, Physician History of Present Illness: stable no new issues - Current Medication List Current Medications: Active Medications Acetaminophen (Tylenol -) 650 mg PO Q6H PRN PRN Reason: FEVER Last Admin: 12/14/18 09:58 Dose: 650 mg Atorvastatin Calcium (Lipitor -) 80 mg PO HS [facility] Last Admin: 12/23/18 21:43 Dose: 80 mg Carvedilol (Coreg -) 25 mg PO BID [facility] Last Admin: 12/24/18 09:44 Dose: 25 mg Haloperidol (Haldol -) 2 mg PO BID [facility] Last Admin: 12/24/18 09:45 Dose: 2 mg Heparin Sodium (Porcine) (Heparin -) 5,000 unit SQ BID [facility] Last Admin: 12/24/18 09:53 Dose: 5,000 unit Losartan Potassium (Cozaar -) 50 mg PO DAILY [facility] Last Admin: 12/24/18 09:44 Dose: 50 mg Metronidazole (Flagyl -) 500 mg PO TID [facility] Last Admin: 12/24/18 06:00 Dose: 500 mg Tamsulosin HCl (Flomax -) 0.4 mg PO [facility] Last Admin: 12/23/18 21:43 Dose: 0.4 mg - Objective Vital Signs: Vital Signs Temperature 98.0 F 12/24/18 09:46 Pulse Rate 78 12/24/18 09:46 Respiratory Rate 20 12/24/18 09:46 Blood Pressure 154/96 12/24/18 09:46 O2 Sat by Pulse Oximetry (%) 98 12/22/18 21:00 Constitutional: Yes: No Distress, Calm Cardiovascular: Yes: Regular Rate and Rhythm Respiratory: Yes: Regular, CTA Bilaterally Gastrointestinal: Yes: Normal Bowel Sounds, Soft Musculoskeletal: Yes: WNL Extremities: Yes: WNL Neurological: Yes: Alert, Oriented Psychiatric: Yes: Alert, Oriented Labs: CBC, BMP 12/23/18 05:50 12/23/18 05:50 INR, PTT INR 1.62 (0.83-1.09) H 12/10/18 15:07 Assessment/Plan roblem List - Problems (1) ALIYA (acute kidney injury) Code(s): N17.9 - ACUTE KIDNEY FAILURE, UNSPECIFIED (2) Dementia Code(s): F03.90 - UNSPECIFIED DEMENTIA WITHOUT BEHAVIORAL DISTURBANCE Qualifiers: Dementia type: unspecified type (3) HTN (hypertension) Code(s): I10 - ESSENTIAL (PRIMARY) HYPERTENSION Qualifiers: Hypertension type: essential hypertension Qualified Code(s): I10 - Essential (primary) hypertension (4) Hydrocele in adult Code(s): N43.3 - HYDROCELE, UNSPECIFIED (5) Leukocytosis Code(s): D72.829 - ELEVATED WHITE BLOOD CELL COUNT, UNSPECIFIED (6) UTI (urinary tract infection) Code(s): N39.0 - URINARY TRACT INFECTION, SITE NOT SPECIFIED Assessment/Plan Diarrhea UTI Leukocytosis plan another 5 days of oral flagyl
--- NOTE | 2018-12-24 15:03 | PN ---
Progress Note, Physician History of Present Illness: Pt seen and examined at bedside. He remains confused. - Current Medication List Current Medications: Active Medications Acetaminophen (Tylenol -) 650 mg PO Q6H PRN PRN Reason: FEVER Last Admin: 12/14/18 09:58 Dose: 650 mg Atorvastatin Calcium (Lipitor -) 80 mg PO HS [facility] Last Admin: 12/23/18 21:43 Dose: 80 mg Carvedilol (Coreg -) 25 mg PO BID [facility] Last Admin: 12/24/18 09:44 Dose: 25 mg Haloperidol (Haldol -) 2 mg PO BID [facility] Last Admin: 12/24/18 09:45 Dose: 2 mg Heparin Sodium (Porcine) (Heparin -) 5,000 unit SQ BID [facility] Last Admin: 12/24/18 09:53 Dose: 5,000 unit Losartan Potassium (Cozaar -) 50 mg PO DAILY [facility] Last Admin: 12/24/18 09:44 Dose: 50 mg Metronidazole (Flagyl -) 500 mg PO TID [facility] Last Admin: 12/24/18 13:36 Dose: 500 mg Tamsulosin HCl (Flomax -) 0.4 mg PO [facility] Last Admin: 12/23/18 21:43 Dose: 0.4 mg - Objective Vital Signs: Vital Signs Temperature 98.0 F 12/24/18 09:46 Pulse Rate 78 12/24/18 09:46 Respiratory Rate 20 12/24/18 09:46 Blood Pressure 154/96 12/24/18 09:46 O2 Sat by Pulse Oximetry (%) 98 12/24/18 09:00 Constitutional: Yes: Calm Eyes: Yes: Conjunctiva Clear HENT: Yes: Atraumatic Neck: Yes: Supple Cardiovascular: Yes: S1, S2 Respiratory: Yes: CTA Bilaterally Gastrointestinal: Yes: Normal Bowel Sounds, Soft Genitourinary: Yes: Other (scrotal swelling) Musculoskeletal: Yes: Muscle Weakness Edema: Yes Edema: LLE: Trace, RLE: Trace Neurological: Yes: Confusion Labs: CBC, BMP 12/23/18 05:50 12/23/18 05:50 INR, PTT INR 1.62 (0.83-1.09) H 12/10/18 15:07 Problem List - Problems (1) ALIYA (acute kidney injury) Code(s): N17.9 - ACUTE KIDNEY FAILURE, UNSPECIFIED (2) Altered mental status Code(s): R41.82 - ALTERED MENTAL STATUS, UNSPECIFIED Assessment/Plan Current Medications Generic Name Dose Route Start Last Admin Trade Name Sean PRN Reason Stop Dose Admin Acetaminophen 650 mg 12/10/18 20:42 12/14/18 09:58 Tylenol - PO 650 mg Q6H PRN Administration FEVER Atorvastatin Calcium 80 mg 12/10/18 22:00 12/23/18 21:43 Lipitor - PO 80 mg HS JONNY Administration Carvedilol 25 mg 12/17/18 22:00 12/24/18 09:44 Coreg - PO 25 mg BID [facility] Administration Haloperidol 2 mg 12/11/18 22:00 12/24/18 09:45 Haldol - PO 2 mg BID [facility] Administration Heparin Sodium (Porcine) 5,000 unit 12/24/18 10:00 12/24/18 09:53 Heparin - SQ 5,000 unit BID [facility] Administration Losartan Potassium 50 mg 12/11/18 10:00 12/24/18 09:44 Cozaar - PO 50 mg DAILY [facility] Administration Metronidazole 500 mg 12/21/18 14:00 12/24/18 13:36 Flagyl - PO 500 mg TID [facility] Administration Tamsulosin HCl 0.4 mg 12/10/18 22:00 12/23/18 21:43 Flomax - PO 0.4 mg HS [facility] Administration Impression 1. CKD 2. HTN 3. CHF 4. weakness 5. dementia 6. bilateral hydroceles Plan - renal function stable - urology follow up - pt with hydroceles - outpt renal workup - avoid nsaids - will follow PRN
--- NOTE | 2018-12-24 17:04 | PN ---
Progress Note, Physician - Current Medication List Current Medications: Active Medications Acetaminophen (Tylenol -) 650 mg PO Q6H PRN PRN Reason: FEVER Last Admin: 12/14/18 09:58 Dose: 650 mg Atorvastatin Calcium (Lipitor -) 80 mg PO [facility] Last Admin: 12/23/18 21:43 Dose: 80 mg Carvedilol (Coreg -) 25 mg PO BID [facility] Last Admin: 12/24/18 09:44 Dose: 25 mg Haloperidol (Haldol -) 2 mg PO BID [facility] Last Admin: 12/24/18 09:45 Dose: 2 mg Heparin Sodium (Porcine) (Heparin -) 5,000 unit SQ BID [facility] Last Admin: 12/24/18 09:53 Dose: 5,000 unit Losartan Potassium (Cozaar -) 50 mg PO DAILY [facility] Last Admin: 12/24/18 09:44 Dose: 50 mg Metronidazole (Flagyl -) 500 mg PO TID [facility] Last Admin: 12/24/18 13:36 Dose: 500 mg Tamsulosin HCl (Flomax -) 0.4 mg PO [facility] Last Admin: 12/23/18 21:43 Dose: 0.4 mg - Objective Vital Signs: Vital Signs Temperature 98.2 F 12/24/18 15:00 Pulse Rate 94 H 12/24/18 15:00 Respiratory Rate 20 12/24/18 15:00 Blood Pressure 128/83 12/24/18 15:00 O2 Sat by Pulse Oximetry (%) 98 12/24/18 09:00 Constitutional: Yes: No Distress HENT: Yes: Atraumatic Neck: Yes: Supple Cardiovascular: Yes: Regular Rate and Rhythm Respiratory: Yes: CTA Bilaterally Gastrointestinal: Yes: Normal Bowel Sounds Genitourinary: Yes: Scrotal Edema Extremities: Yes: WNL Edema: No Peripheral Pulses WNL: Yes Neurological: Yes: Alert Labs: CBC, BMP 12/23/18 05:50 12/23/18 05:50 INR, PTT INR 1.62 (0.83-1.09) H 12/10/18 15:07 Problem List - Problems (1) ALIYA (acute kidney injury) Assessment/Plan: monitor improving renal consult Code(s): N17.9 - ACUTE KIDNEY FAILURE, UNSPECIFIED (2) Altered mental status Assessment/Plan: doing well alert talking Code(s): R41.82 - ALTERED MENTAL STATUS, UNSPECIFIED (3) Elevated troponin I level Code(s): R79.89 - OTHER SPECIFIED ABNORMAL FINDINGS OF BLOOD CHEMISTRY (4) Pneumonia Code(s): J18.9 - PNEUMONIA, UNSPECIFIED ORGANISM (5) UTI (urinary tract infection) Assessment/Plan: on po abx cxs noted Code(s): N39.0 - URINARY TRACT INFECTION, SITE NOT SPECIFIED (6) HTN (hypertension) Assessment/Plan: on meds Code(s): I10 - ESSENTIAL (PRIMARY) HYPERTENSION Qualifiers: Hypertension type: essential hypertension Qualified Code(s): I10 - Essential (primary) hypertension (7) Hypercholesterolemia Code(s): E78.00 - PURE HYPERCHOLESTEROLEMIA, UNSPECIFIED (8) Hydrocele in adult Assessment/Plan: us ..done urology on board cysto?? anesthesiologist not comfortable giving anesthesia at this point will dc patient fu as out patient Code(s): N43.3 - HYDROCELE, UNSPECIFIED (9) Dementia Code(s): F03.90 - UNSPECIFIED DEMENTIA WITHOUT BEHAVIORAL DISTURBANCE Qualifiers: Dementia type: unspecified type (10) Leukocytosis Code(s): D72.829 - ELEVATED WHITE BLOOD CELL COUNT, UNSPECIFIED
--- NOTE | 2018-12-24 18:52 | PN ---
Progress Note (short form) - Note Progress Note: Anesthesia pre op, Patient seen and examined. Pat with multiple systemic disease. CHF, HTN, CAD, Cardiomegaly,CRF and ARF, Dementia with microvascular ischemia. On this admission has been treated for pneumonia, and UTI. Currently elevated LFTs. WBC:8.4. Needs to be medically and cardiac optimized prior to elective surgery. Discussed with Dr. Car.
[2018-12-24] MEDS: ATORVASTATIN CA 80 MG TABLET (FP) PO SCH (21:22)
[2018-12-24] MEDS: ACETAMINOPHEN 325 MG TABLET (FP) PO PRN (21:22)
[2018-12-24] MEDS: TAMSULOSIN HCL 0.4 MG CAP PO SCH (21:25)
[2018-12-25] MEDS: metroNIDAZOLE 250 MG TABLET PO SCH ×3 (05:33→21:23)
[2018-12-25] MEDS ORDERED: PT OWN MED DRAWER 7, Y5N ONE ×3 (06:45→21:16)
[2018-12-25] MEDS: LOSARTAN POTASSIUM 50 MG TABLET (FP) PO SCH (10:53)
[2018-12-25] MEDS: HEPARIN NA (PORCINE) 5,000 UNITS/ML 1ML VIAL SQ SCH ×2 (10:53→21:24)
[2018-12-25] MEDS: HALOPERIDOL 2 MG TABLET PO SCH ×2 (10:53→21:24)
[2018-12-25] MEDS: CARVEDILOL 25 MG TABLET (FP) PO SCH ×2 (10:53→21:23)
--- NOTE | 2018-12-25 11:30 | PN ---
Progress Note, Physician History of Present Illness: no new issues - Current Medication List Current Medications: Active Medications Acetaminophen (Tylenol -) 650 mg PO Q6H PRN PRN Reason: FEVER Last Admin: 12/24/18 21:22 Dose: 650 mg Atorvastatin Calcium (Lipitor -) 80 mg PO HS [facility] Last Admin: 12/24/18 21:22 Dose: 80 mg Carvedilol (Coreg -) 25 mg PO BID [facility] Last Admin: 12/25/18 10:53 Dose: 25 mg Haloperidol (Haldol -) 2 mg PO BID [facility] Last Admin: 12/25/18 10:53 Dose: 2 mg Heparin Sodium (Porcine) (Heparin -) 5,000 unit SQ BID [facility] Last Admin: 12/25/18 10:53 Dose: 5,000 unit Losartan Potassium (Cozaar -) 50 mg PO DAILY [facility] Last Admin: 12/25/18 10:53 Dose: 50 mg Metronidazole (Flagyl -) 500 mg PO TID [facility] Last Admin: 12/25/18 05:33 Dose: 500 mg Tamsulosin HCl (Flomax -) 0.4 mg PO [facility] Last Admin: 12/24/18 21:25 Dose: 0.4 mg - Objective Vital Signs: Vital Signs Temperature 98.7 F 12/24/18 22:00 Pulse Rate 80 12/24/18 22:00 Respiratory Rate 18 12/24/18 22:00 Blood Pressure 122/86 12/24/18 22:00 O2 Sat by Pulse Oximetry (%) 99 12/24/18 20:39 Constitutional: Yes: No Distress, Calm Cardiovascular: Yes: S1, S2 Respiratory: Yes: Regular, CTA Bilaterally Gastrointestinal: Yes: Normal Bowel Sounds, Soft Musculoskeletal: Yes: WNL Extremities: Yes: WNL Neurological: Yes: Alert Psychiatric: Yes: Other Labs: CBC, BMP 12/23/18 05:50 12/23/18 05:50 INR, PTT INR 1.62 (0.83-1.09) H 12/10/18 15:07 Assessment/Plan roblem List - Problems (1) ALIYA (acute kidney injury) Code(s): N17.9 - ACUTE KIDNEY FAILURE, UNSPECIFIED (2) Dementia Code(s): F03.90 - UNSPECIFIED DEMENTIA WITHOUT BEHAVIORAL DISTURBANCE Qualifiers: Dementia type: unspecified type (3) HTN (hypertension) Code(s): I10 - ESSENTIAL (PRIMARY) HYPERTENSION Qualifiers: Hypertension type: essential hypertension Qualified Code(s): I10 - Essential (primary) hypertension (4) Hydrocele in adult Code(s): N43.3 - HYDROCELE, UNSPECIFIED (5) Leukocytosis Code(s): D72.829 - ELEVATED WHITE BLOOD CELL COUNT, UNSPECIFIED (6) UTI (urinary tract infection) Code(s): N39.0 - URINARY TRACT INFECTION, SITE NOT SPECIFIED Assessment/Plan Diarrhea UTI Leukocytosis plan continue flagyl urology plan rest as per the team
--- NOTE | 2018-12-25 14:36 | PN ---
Progress Note, Physician History of Present Illness: Pt seen and examined. No new events. - Current Medication List Current Medications: Active Medications Acetaminophen (Tylenol -) 650 mg PO Q6H PRN PRN Reason: FEVER Last Admin: 12/24/18 21:22 Dose: 650 mg Atorvastatin Calcium (Lipitor -) 80 mg PO HS [facility] Last Admin: 12/24/18 21:22 Dose: 80 mg Carvedilol (Coreg -) 25 mg PO BID [facility] Last Admin: 12/25/18 10:53 Dose: 25 mg Haloperidol (Haldol -) 2 mg PO BID [facility] Last Admin: 12/25/18 10:53 Dose: 2 mg Heparin Sodium (Porcine) (Heparin -) 5,000 unit SQ BID [facility] Last Admin: 12/25/18 10:53 Dose: 5,000 unit Losartan Potassium (Cozaar -) 50 mg PO DAILY [facility] Last Admin: 12/25/18 10:53 Dose: 50 mg Metronidazole (Flagyl -) 500 mg PO TID [facility] Last Admin: 12/25/18 14:27 Dose: 500 mg Tamsulosin HCl (Flomax -) 0.4 mg PO [facility] Last Admin: 12/24/18 21:25 Dose: 0.4 mg - Objective Vital Signs: Vital Signs Temperature 98.7 F 12/24/18 22:00 Pulse Rate 80 12/24/18 22:00 Respiratory Rate 18 12/24/18 22:00 Blood Pressure 122/86 12/24/18 22:00 O2 Sat by Pulse Oximetry (%) 99 12/24/18 20:39 Constitutional: Yes: Calm Eyes: Yes: Conjunctiva Clear HENT: Yes: Atraumatic Neck: Yes: Supple Cardiovascular: Yes: S1, S2 Respiratory: Yes: CTA Bilaterally Gastrointestinal: Yes: Normal Bowel Sounds, Soft Genitourinary: Yes: Incontinence Musculoskeletal: Yes: WNL Edema: No Neurological: Yes: Confusion Labs: CBC, BMP 12/23/18 05:50 12/23/18 05:50 INR, PTT INR 1.62 (0.83-1.09) H 12/10/18 15:07 Problem List - Problems (1) ALIYA (acute kidney injury) Code(s): N17.9 - ACUTE KIDNEY FAILURE, UNSPECIFIED (2) Altered mental status Code(s): R41.82 - ALTERED MENTAL STATUS, UNSPECIFIED Assessment/Plan Current Medications Generic Name Dose Route Start Last Admin Trade Name Tramaineq PRN Reason Stop Dose Admin Acetaminophen 650 mg 12/10/18 20:42 12/24/18 21:22 Tylenol - PO 650 mg Q6H PRN Administration FEVER Atorvastatin Calcium 80 mg 12/10/18 22:00 12/24/18 21:22 Lipitor - PO 80 mg HS JONNY Administration Carvedilol 25 mg 12/17/18 22:00 12/25/18 10:53 Coreg - PO 25 mg BID JONNY Administration Haloperidol 2 mg 12/11/18 22:00 12/25/18 10:53 Haldol - PO 2 mg BID JONNY Administration Heparin Sodium (Porcine) 5,000 unit 12/24/18 10:00 12/25/18 10:53 Heparin - SQ 5,000 unit BID JONNY Administration Losartan Potassium 50 mg 12/11/18 10:00 12/25/18 10:53 Cozaar - PO 50 mg DAILY [facility] Administration Metronidazole 500 mg 12/21/18 14:00 12/25/18 14:27 Flagyl - PO 500 mg TID [facility]NY Administration Tamsulosin HCl 0.4 mg 12/10/18 22:00 12/24/18 21:25 Flomax - PO 0.4 mg HS JONNY Administration Impression 1. CKD 2. HTN 3. CHF 4. weakness 5. dementia 6. bilateral hydroceles Plan - cont to monitor renal function - check bmp - urology follow up - no new labs - will follow PRN
--- NOTE | 2018-12-25 19:15 | PN ---
Progress Note, Physician - Current Medication List Current Medications: Active Medications Acetaminophen (Tylenol -) 650 mg PO Q6H PRN PRN Reason: FEVER Last Admin: 12/24/18 21:22 Dose: 650 mg Atorvastatin Calcium (Lipitor -) 80 mg PO [facility] Last Admin: 12/24/18 21:22 Dose: 80 mg Carvedilol (Coreg -) 25 mg PO BID [facility] Last Admin: 12/25/18 10:53 Dose: 25 mg Haloperidol (Haldol -) 2 mg PO BID [facility] Last Admin: 12/25/18 10:53 Dose: 2 mg Heparin Sodium (Porcine) (Heparin -) 5,000 unit SQ BID [facility] Last Admin: 12/25/18 10:53 Dose: 5,000 unit Losartan Potassium (Cozaar -) 50 mg PO DAILY [facility] Last Admin: 12/25/18 10:53 Dose: 50 mg Metronidazole (Flagyl -) 500 mg PO TID [facility] Last Admin: 12/25/18 14:27 Dose: 500 mg Tamsulosin HCl (Flomax -) 0.4 mg PO [facility] Last Admin: 12/24/18 21:25 Dose: 0.4 mg - Objective Vital Signs: Vital Signs Temperature 97.8 F 12/25/18 14:00 Pulse Rate 69 12/25/18 14:00 Respiratory Rate 20 12/25/18 14:00 Blood Pressure 148/91 12/25/18 14:00 O2 Sat by Pulse Oximetry (%) 99 12/25/18 09:00 Constitutional: Yes: No Distress HENT: Yes: Atraumatic Neck: Yes: Supple Cardiovascular: Yes: Regular Rate and Rhythm Respiratory: Yes: CTA Bilaterally Gastrointestinal: Yes: Normal Bowel Sounds Genitourinary: Yes: Scrotal Edema Extremities: Yes: WNL Neurological: Yes: Alert Labs: CBC, BMP 12/23/18 05:50 12/23/18 05:50 INR, PTT INR 1.62 (0.83-1.09) H 12/10/18 15:07 Problem List - Problems (1) ALIYA (acute kidney injury) Assessment/Plan: monitor improving renal consult Code(s): N17.9 - ACUTE KIDNEY FAILURE, UNSPECIFIED (2) Altered mental status Assessment/Plan: doing well alert talking Code(s): R41.82 - ALTERED MENTAL STATUS, UNSPECIFIED (3) Elevated troponin I level Code(s): R79.89 - OTHER SPECIFIED ABNORMAL FINDINGS OF BLOOD CHEMISTRY (4) Pneumonia Code(s): J18.9 - PNEUMONIA, UNSPECIFIED ORGANISM (5) UTI (urinary tract infection) Assessment/Plan: on po abx cxs noted Code(s): N39.0 - URINARY TRACT INFECTION, SITE NOT SPECIFIED (6) HTN (hypertension) Assessment/Plan: on meds Code(s): I10 - ESSENTIAL (PRIMARY) HYPERTENSION Qualifiers: Hypertension type: essential hypertension Qualified Code(s): I10 - Essential (primary) hypertension (7) Hypercholesterolemia Assessment/Plan: on meds Code(s): E78.00 - PURE HYPERCHOLESTEROLEMIA, UNSPECIFIED (8) Hydrocele in adult Assessment/Plan: us ..done urology on board cysto?? anesthesiologist not comfortable giving anesthesia at this point need urology fu and cardiac clearance Code(s): N43.3 - HYDROCELE, UNSPECIFIED (9) Dementia Code(s): F03.90 - UNSPECIFIED DEMENTIA WITHOUT BEHAVIORAL DISTURBANCE Qualifiers: Dementia type: unspecified type (10) Leukocytosis Code(s): D72.829 - ELEVATED WHITE BLOOD CELL COUNT, UNSPECIFIED
[2018-12-25] MEDS: TAMSULOSIN HCL 0.4 MG CAP PO SCH (21:23)
[2018-12-25] MEDS: ATORVASTATIN CA 80 MG TABLET (FP) PO SCH (21:23)
[2018-12-26] MEDS: metroNIDAZOLE 250 MG TABLET PO SCH ×3 (05:28→21:56)
[2018-12-26 08:35] LABS: BASO % 0.7 % (0-2.0); EOS % 2.2 % (0-4.5); HEMATOCRIT 31.2 % (35.4-49); HEMOGLOBIN 10.2 GM/dL (11.7-16.9); LYMPH % 21.9 % (8-40); MCH 30.5 pg (25.7-33.7); MCHC 32.7 g/dl (32.0-35.9); MEAN CELL VOLUME 93.1 fl (80-96); MEAN PLT VOLUME 11.7 fl (7.5-11.1); MONO % 9.6 % (3.8-10.2); NEUT % 65.6 % (42.8-82.8); PLATELET COUNT 238 K/MM3 (134-434); RBC 3.35 M/mm3 (4.00-5.60); RDW 15.6 % (11.9-15.9); WHITE BLOOD COUNT 6.9 K/mm3 (4.0-10.0)
[2018-12-26 09:17] LABS: ALBUMIN 2.5 g/dl (3.4-5.0); BILIRUBIN,TOTAL 0.9 mg/dL (0.2-1); BLOOD UREA NITROGEN 15.4 mg/dL (7-18); CALCIUM 8.4 mg/dL (8.5-10.1); CREATININE 1.9 mg/dL (0.55-1.3); POTASSIUM 4.2 mmol/L (3.5-5.1); TOT PROT 6.5 g/dl (6.4-8.2)
--- NOTE | 2018-12-26 10:22 | PN ---
Progress Note, Physician History of Present Illness: no new issues confused - Current Medication List Current Medications: Active Medications Acetaminophen (Tylenol -) 650 mg PO Q6H PRN PRN Reason: FEVER Last Admin: 12/24/18 21:22 Dose: 650 mg Atorvastatin Calcium (Lipitor -) 80 mg PO HS [facility] Last Admin: 12/25/18 21:23 Dose: 80 mg Carvedilol (Coreg -) 25 mg PO BID [facility] Last Admin: 12/25/18 21:23 Dose: 25 mg Haloperidol (Haldol -) 2 mg PO BID [facility] Last Admin: 12/25/18 21:24 Dose: 2 mg Heparin Sodium (Porcine) (Heparin -) 5,000 unit SQ BID [facility] Last Admin: 12/25/18 21:24 Dose: 5,000 unit Losartan Potassium (Cozaar -) 50 mg PO DAILY [facility] Last Admin: 12/25/18 10:53 Dose: 50 mg Metronidazole (Flagyl -) 500 mg PO TID [facility] Last Admin: 12/26/18 05:28 Dose: 500 mg Tamsulosin HCl (Flomax -) 0.4 mg PO [facility] Last Admin: 12/25/18 21:23 Dose: 0.4 mg - Objective Vital Signs: Vital Signs Temperature 98.4 F 12/26/18 07:01 Pulse Rate 70 12/26/18 07:01 Respiratory Rate 20 12/26/18 07:01 Blood Pressure 137/76 12/26/18 07:01 O2 Sat by Pulse Oximetry (%) 99 12/25/18 09:00 Constitutional: Yes: No Distress, Calm Cardiovascular: Yes: S1, S2 Respiratory: Yes: Regular, CTA Bilaterally Gastrointestinal: Yes: Normal Bowel Sounds, Soft Musculoskeletal: Yes: WNL Extremities: Yes: WNL Neurological: Yes: Alert, Confusion Psychiatric: Yes: Other Labs: CBC, BMP 12/26/18 07:40 12/26/18 07:40 INR, PTT INR 1.62 (0.83-1.09) H 12/10/18 15:07 Assessment/Plan roble List - Problems (1) ALIYA (acute kidney injury) Code(s): N17.9 - ACUTE KIDNEY FAILURE, UNSPECIFIED (2) Dementia Code(s): F03.90 - UNSPECIFIED DEMENTIA WITHOUT BEHAVIORAL DISTURBANCE Qualifiers: Dementia type: unspecified type (3) HTN (hypertension) Code(s): I10 - ESSENTIAL (PRIMARY) HYPERTENSION Qualifiers: Hypertension type: essential hypertension Qualified Code(s): I10 - Essential (primary) hypertension (4) Hydrocele in adult Code(s): N43.3 - HYDROCELE, UNSPECIFIED (5) Leukocytosis Code(s): D72.829 - ELEVATED WHITE BLOOD CELL COUNT, UNSPECIFIED (6) UTI (urinary tract infection) Code(s): N39.0 - URINARY TRACT INFECTION, SITE NOT SPECIFIED Assessment/Plan Diarrhea UTI Leukocytosis plan continue flagyl urology plan rest as per the team
[2018-12-26] MEDS ORDERED: PT OWN MED DRAWER 7, Y5N ONE ×2 (10:28→21:28)
[2018-12-26] MEDS: LOSARTAN POTASSIUM 50 MG TABLET (FP) PO SCH (10:39)
[2018-12-26] MEDS: CARVEDILOL 25 MG TABLET (FP) PO SCH ×2 (10:39→21:56)
[2018-12-26] MEDS: HEPARIN NA (PORCINE) 5,000 UNITS/ML 1ML VIAL SQ SCH ×2 (10:40→21:56)
[2018-12-26] MEDS: HALOPERIDOL 2 MG TABLET PO SCH ×2 (10:40→21:56)
--- NOTE | 2018-12-26 10:56 | PN ---
Progress Note, Physician History of Present Illness: Denies chest pain, SOB or palpitations, resting comfortably in wheelchair. - Current Medication List Current Medications: Active Medications Acetaminophen (Tylenol -) 650 mg PO Q6H PRN PRN Reason: FEVER Last Admin: 12/24/18 21:22 Dose: 650 mg Atorvastatin Calcium (Lipitor -) 80 mg PO [facility] Last Admin: 12/25/18 21:23 Dose: 80 mg Carvedilol (Coreg -) 25 mg PO BID [facility] Last Admin: 12/26/18 10:39 Dose: 25 mg Haloperidol (Haldol -) 2 mg PO BID [facility] Last Admin: 12/26/18 10:40 Dose: 2 mg Heparin Sodium (Porcine) (Heparin -) 5,000 unit SQ BID [facility] Last Admin: 12/26/18 10:40 Dose: 5,000 unit Losartan Potassium (Cozaar -) 50 mg PO DAILY [facility] Last Admin: 12/26/18 10:39 Dose: 50 mg Metronidazole (Flagyl -) 500 mg PO TID [facility] Last Admin: 12/26/18 05:28 Dose: 500 mg Tamsulosin HCl (Flomax -) 0.4 mg PO [facility] Last Admin: 12/25/18 21:23 Dose: 0.4 mg - Objective Vital Signs: Vital Signs Temperature 98.4 F 12/26/18 07:01 Pulse Rate 70 12/26/18 07:01 Respiratory Rate 20 12/26/18 07:01 Blood Pressure 137/76 12/26/18 07:01 O2 Sat by Pulse Oximetry (%) 99 12/25/18 09:00 Constitutional: Yes: No Distress, Calm, Thin Neck: Yes: Supple Cardiovascular: Yes: Regular Rate and Rhythm Respiratory: Yes: Regular, Diminished Gastrointestinal: Yes: Soft, Hypoactive Bowel Sounds Edema: No Labs: CBC, BMP 12/26/18 07:40 12/26/18 07:40 INR, PTT INR 1.62 (0.83-1.09) H 12/10/18 15:07 Problem List - Problems (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 Code(s): I51.89 - OTHER ILL-DEFINED HEART DISEASES (2) ALIYA (acute kidney injury) Code(s): N17.9 - ACUTE KIDNEY FAILURE, UNSPECIFIED (3) Dementia Code(s): F03.90 - UNSPECIFIED DEMENTIA WITHOUT BEHAVIORAL DISTURBANCE Qualifiers: Dementia type: unspecified type (4) Elevated troponin I level Code(s): R79.89 - OTHER SPECIFIED ABNORMAL FINDINGS OF BLOOD CHEMISTRY (5) HTN (hypertension) Code(s): I10 - ESSENTIAL (PRIMARY) HYPERTENSION Qualifiers: Hypertension type: essential hypertension Qualified Code(s): I10 - Essential (primary) hypertension (6) Hypercholesterolemia Code(s): E78.00 - PURE HYPERCHOLESTEROLEMIA, UNSPECIFIED (7) Leukocytosis Code(s): D72.829 - ELEVATED WHITE BLOOD CELL COUNT, UNSPECIFIED (8) Transaminitis Code(s): R74.0 - NONSPEC ELEV OF LEVELS OF TRANSAMNS & LACTIC ACID DEHYDRGNSE Assessment/Plan 12/12/2018 Echo: Mildly dilated with moderate-severe decreased LVEF 35-40%, mild MR, TR, mild AR, mod ADAM, restrictive physiology 1. Shortness of breath, weakness with small pleural effusion improving 2/2 2. 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 HTN heart disease at goal BP 4. Hypercholesterolemia 5. Organic brain syndrome/dementia 6. Leukocytosis and diarrhea resolving, ruled out c. diff 7. Abnormal LFT c/w hepatic congestion improving 8. Acute on CKD improving 9. NSVT 10. Large bilateral hydroceles PLAN: 1. Continue Carvedilol 25 bid, Losartan 50 qd and Atorvastatin 80 qhs as tolerated 2. Not on aldosterone inhibition due to CKD 3. Complete empiric antibiotic coverage 4. Troponin plateaued, WBC trending downwards 5. DVT prophylaxis 6. Given patient's recovery from acute on chronic systolic failure and current euvolemic status, absence of symptoms of malignant arrhythmia or acute coronary syndrome, he may proceed with urologic procedure from CV-standpoint w/o further testing. D/w daughter .
--- NOTE | 2018-12-26 13:26 | PN ---
Progress Note (short form) - Note Progress Note: UROLOGY NOTE. PT. WITH H/O PROSATISM AND REC. UTI, RENAL SONO-NUT. PT. IS MEDICALLY OPTIMIZED FOR POSS. CYSTO, TURP/TUVP IN AM.WILL KEEP NPO POST-MN
[2018-12-26] MEDS ORDERED: FUROSEMIDE 40 MG TABLET (FP) PO ONE (13:48)
--- NOTE | 2018-12-26 13:49 | PN ---
Progress Note, Physician History of Present Illness: Pt seen and examined at bedside. He remains confused. - Current Medication List Current Medications: Active Medications Acetaminophen (Tylenol -) 650 mg PO Q6H PRN PRN Reason: FEVER Last Admin: 12/24/18 21:22 Dose: 650 mg Atorvastatin Calcium (Lipitor -) 80 mg PO HS [facility] Last Admin: 12/25/18 21:23 Dose: 80 mg Carvedilol (Coreg -) 25 mg PO BID [facility] Last Admin: 12/26/18 10:39 Dose: 25 mg Haloperidol (Haldol -) 2 mg PO BID [facility] Last Admin: 12/26/18 10:40 Dose: 2 mg Heparin Sodium (Porcine) (Heparin -) 5,000 unit SQ BID [facility] Last Admin: 12/26/18 10:40 Dose: 5,000 unit Losartan Potassium (Cozaar -) 50 mg PO DAILY [facility] Last Admin: 12/26/18 10:39 Dose: 50 mg Metronidazole (Flagyl -) 500 mg PO TID [facility] Last Admin: 12/26/18 05:28 Dose: 500 mg Tamsulosin HCl (Flomax -) 0.4 mg PO [facility] Last Admin: 12/25/18 21:23 Dose: 0.4 mg - Objective Vital Signs: Vital Signs Temperature 98.4 F 12/26/18 07:01 Pulse Rate 70 12/26/18 07:01 Respiratory Rate 20 12/26/18 07:01 Blood Pressure 137/76 12/26/18 07:01 O2 Sat by Pulse Oximetry (%) 99 12/25/18 09:00 Constitutional: Yes: Calm Eyes: Yes: Conjunctiva Clear HENT: Yes: Atraumatic Neck: Yes: Supple Cardiovascular: Yes: S1, S2 Respiratory: Yes: CTA Bilaterally Gastrointestinal: Yes: Soft Genitourinary: Yes: Other (test swelling) Edema: Yes Edema: LLE: Trace, RLE: Trace Integumentary: Yes: WNL Neurological: Yes: Confusion Labs: CBC, BMP 12/26/18 07:40 12/26/18 07:40 INR, PTT INR 1.62 (0.83-1.09) H 12/10/18 15:07 Problem List - Problems (1) ALIYA (acute kidney injury) Code(s): N17.9 - ACUTE KIDNEY FAILURE, UNSPECIFIED (2) Altered mental status Code(s): R41.82 - ALTERED MENTAL STATUS, UNSPECIFIED Assessment/Plan Current Medications Generic Name Dose Route Start Last Admin Trade Name Freq PRN Reason Stop Dose Admin Acetaminophen 650 mg 12/10/18 20:42 12/24/18 21:22 Tylenol - PO 650 mg Q6H PRN Administration FEVER Atorvastatin Calcium 80 mg 12/10/18 22:00 12/25/18 21:23 Lipitor - PO 80 mg HS JONNY Administration Carvedilol 25 mg 12/17/18 22:00 12/26/18 10:39 Coreg - PO 25 mg BID JONNY Administration Haloperidol 2 mg 12/11/18 22:00 12/26/18 10:40 Haldol - PO 2 mg BID JNONY Administration Heparin Sodium (Porcine) 5,000 unit 12/24/18 10:00 12/26/18 10:40 Heparin - SQ 5,000 unit BID JONNY Administration Losartan Potassium 50 mg 12/11/18 10:00 12/26/18 10:39 Cozaar - PO 50 mg DAILY JONNY Administration Metronidazole 500 mg 12/21/18 14:00 12/26/18 05:28 Flagyl - PO 500 mg TID JONNY Administration Tamsulosin HCl 0.4 mg 12/10/18 22:00 12/25/18 21:23 Flomax - PO 0.4 mg HS JONNY Administration Impression 1. CKD 2. HTN 3. CHF 4. weakness 5. dementia 6. bilateral hydroceles Plan - will give 40 of lasix - repeat labs tomorrow - urology input appreciated - bmp reviewed
--- NOTE | 2018-12-26 17:47 | PN ---
Progress Note, Physician History of Present Illness: stable - Current Medication List Current Medications: Active Medications Acetaminophen (Tylenol -) 650 mg PO Q6H PRN PRN Reason: FEVER Last Admin: 12/24/18 21:22 Dose: 650 mg Atorvastatin Calcium (Lipitor -) 80 mg PO [facility] Last Admin: 12/25/18 21:23 Dose: 80 mg Carvedilol (Coreg -) 25 mg PO BID [facility] Last Admin: 12/26/18 10:39 Dose: 25 mg Haloperidol (Haldol -) 2 mg PO BID [facility] Last Admin: 12/26/18 10:40 Dose: 2 mg Heparin Sodium (Porcine) (Heparin -) 5,000 unit SQ BID [facility] Last Admin: 12/26/18 10:40 Dose: 5,000 unit Losartan Potassium (Cozaar -) 50 mg PO DAILY [facility] Last Admin: 12/26/18 10:39 Dose: 50 mg Metronidazole (Flagyl -) 500 mg PO TID [facility] Last Admin: 12/26/18 14:09 Dose: 500 mg Tamsulosin HCl (Flomax -) 0.4 mg PO [facility] Last Admin: 12/25/18 21:23 Dose: 0.4 mg - Objective Vital Signs: Vital Signs Temperature 97.8 F 12/26/18 17:02 Pulse Rate 72 12/26/18 17:02 Respiratory Rate 20 12/26/18 17:02 Blood Pressure 123/80 12/26/18 17:02 O2 Sat by Pulse Oximetry (%) 99 12/25/18 09:00 Constitutional: Yes: No Distress HENT: Yes: Atraumatic Neck: Yes: Supple Cardiovascular: Yes: Regular Rate and Rhythm Respiratory: Yes: CTA Bilaterally Gastrointestinal: Yes: Normal Bowel Sounds Genitourinary: Yes: Scrotal Edema Extremities: Yes: WNL Edema: No Neurological: Yes: Alert Labs: CBC, BMP 12/26/18 07:40 12/26/18 07:40 INR, PTT INR 1.62 (0.83-1.09) H 12/10/18 15:07 Problem List - Problems (1) ALIYA (acute kidney injury) Assessment/Plan: monitor improving renal consult Code(s): N17.9 - ACUTE KIDNEY FAILURE, UNSPECIFIED (2) Altered mental status Assessment/Plan: doing well alert talking Code(s): R41.82 - ALTERED MENTAL STATUS, UNSPECIFIED (3) Elevated troponin I level Code(s): R79.89 - OTHER SPECIFIED ABNORMAL FINDINGS OF BLOOD CHEMISTRY (4) Pneumonia Code(s): J18.9 - PNEUMONIA, UNSPECIFIED ORGANISM (5) UTI (urinary tract infection) Assessment/Plan: on po abx cxs noted Code(s): N39.0 - URINARY TRACT INFECTION, SITE NOT SPECIFIED (6) HTN (hypertension) Code(s): I10 - ESSENTIAL (PRIMARY) HYPERTENSION Qualifiers: Hypertension type: essential hypertension Qualified Code(s): I10 - Essential (primary) hypertension (7) Hypercholesterolemia Assessment/Plan: on meds Code(s): E78.00 - PURE HYPERCHOLESTEROLEMIA, UNSPECIFIED (8) Hydrocele in adult Assessment/Plan: for cysto/turp tomorrow as per urology Code(s): N43.3 - HYDROCELE, UNSPECIFIED (9) Dementia Code(s): F03.90 - UNSPECIFIED DEMENTIA WITHOUT BEHAVIORAL DISTURBANCE Qualifiers: Dementia type: unspecified type (10) Leukocytosis Code(s): D72.829 - ELEVATED WHITE BLOOD CELL COUNT, UNSPECIFIED
[2018-12-26] MEDS: ATORVASTATIN CA 80 MG TABLET (FP) PO SCH (21:56)
[2018-12-26] MEDS: TAMSULOSIN HCL 0.4 MG CAP PO SCH (21:56)
[2018-12-27] MEDS: metroNIDAZOLE 250 MG TABLET PO SCH (05:53)
--- NOTE | 2018-12-27 09:07 | PN ---
Progress Note, Physician History of Present Illness: stable for cysto - Current Medication List Current Medications: Active Medications Acetaminophen (Tylenol -) 650 mg PO Q6H PRN PRN Reason: FEVER Last Admin: 12/24/18 21:22 Dose: 650 mg Atorvastatin Calcium (Lipitor -) 80 mg PO HS [facility] Last Admin: 12/26/18 21:56 Dose: 80 mg Carvedilol (Coreg -) 25 mg PO BID [facility] Last Admin: 12/26/18 21:56 Dose: 25 mg Haloperidol (Haldol -) 2 mg PO BID [facility] Last Admin: 12/26/18 21:56 Dose: 2 mg Heparin Sodium (Porcine) (Heparin -) 5,000 unit SQ BID [facility] Last Admin: 12/26/18 21:56 Dose: 5,000 unit Losartan Potassium (Cozaar -) 50 mg PO DAILY [facility] Last Admin: 12/26/18 10:39 Dose: 50 mg Tamsulosin HCl (Flomax -) 0.4 mg PO [facility] Last Admin: 12/26/18 21:56 Dose: 0.4 mg - Objective Vital Signs: Vital Signs Temperature 98.2 F 12/27/18 07:03 Pulse Rate 86 12/27/18 07:03 Respiratory Rate 20 12/27/18 07:03 Blood Pressure 126/69 12/27/18 07:03 O2 Sat by Pulse Oximetry (%) 96 12/26/18 21:00 Constitutional: Yes: No Distress, Calm HENT: Yes: Atraumatic Cardiovascular: Yes: S1, S2 Respiratory: Yes: Regular, CTA Bilaterally Gastrointestinal: Yes: Normal Bowel Sounds, Soft Genitourinary: Yes: Other Musculoskeletal: Yes: WNL Extremities: Yes: WNL Labs: CBC, BMP 12/26/18 07:40 12/26/18 07:40 INR, PTT INR 1.62 (0.83-1.09) H 12/10/18 15:07 Assessment/Plan roble List - Problems (1) ALIYA (acute kidney injury) Code(s): N17.9 - ACUTE KIDNEY FAILURE, UNSPECIFIED (2) Dementia Code(s): F03.90 - UNSPECIFIED DEMENTIA WITHOUT BEHAVIORAL DISTURBANCE Qualifiers: Dementia type: unspecified type (3) HTN (hypertension) Code(s): I10 - ESSENTIAL (PRIMARY) HYPERTENSION Qualifiers: Hypertension type: essential hypertension Qualified Code(s): I10 - Essential (primary) hypertension (4) Hydrocele in adult Code(s): N43.3 - HYDROCELE, UNSPECIFIED (5) Leukocytosis Code(s): D72.829 - ELEVATED WHITE BLOOD CELL COUNT, UNSPECIFIED (6) UTI (urinary tract infection) Code(s): N39.0 - URINARY TRACT INFECTION, SITE NOT SPECIFIED Assessment/Plan Diarrhea UTI Leukocytosis plan will stop falgyl for cysto today
--- NOTE | 2018-12-27 10:13 | PN ---
Progress Note, Physician History of Present Illness: Denies chest pain, SOB, orthopnea or palpitations, resting comfortably in bed - Current Medication List Current Medications: Active Medications Acetaminophen (Tylenol -) 650 mg PO Q6H PRN PRN Reason: FEVER Last Admin: 12/24/18 21:22 Dose: 650 mg Atorvastatin Calcium (Lipitor -) 80 mg PO HS [facility] Last Admin: 12/26/18 21:56 Dose: 80 mg Carvedilol (Coreg -) 25 mg PO BID [facility] Last Admin: 12/26/18 21:56 Dose: 25 mg Haloperidol (Haldol -) 2 mg PO BID [facility] Last Admin: 12/26/18 21:56 Dose: 2 mg Heparin Sodium (Porcine) (Heparin -) 5,000 unit SQ BID [facility] Last Admin: 12/26/18 21:56 Dose: 5,000 unit Losartan Potassium (Cozaar -) 50 mg PO DAILY [facility] Last Admin: 12/26/18 10:39 Dose: 50 mg Tamsulosin HCl (Flomax -) 0.4 mg PO [facility] Last Admin: 12/26/18 21:56 Dose: 0.4 mg - Objective Vital Signs: Vital Signs Temperature 98.2 F 12/27/18 07:03 Pulse Rate 86 12/27/18 07:03 Respiratory Rate 20 12/27/18 07:03 Blood Pressure 126/69 12/27/18 07:03 O2 Sat by Pulse Oximetry (%) 96 12/26/18 21:00 Constitutional: Yes: No Distress, Calm Neck: Yes: Supple Cardiovascular: Yes: Regular Rate and Rhythm Respiratory: Yes: Regular, CTA Bilaterally Gastrointestinal: Yes: Soft, Hypoactive Bowel Sounds Edema: No Labs: CBC, BMP 12/26/18 07:40 12/26/18 07:40 INR, PTT INR 1.62 (0.83-1.09) H 12/10/18 15:07 Problem List - Problems (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 Code(s): I51.89 - OTHER ILL-DEFINED HEART DISEASES (2) ALIYA (acute kidney injury) Code(s): N17.9 - ACUTE KIDNEY FAILURE, UNSPECIFIED (3) Dementia Code(s): F03.90 - UNSPECIFIED DEMENTIA WITHOUT BEHAVIORAL DISTURBANCE Qualifiers: Dementia type: unspecified type (4) Elevated troponin I level Code(s): R79.89 - OTHER SPECIFIED ABNORMAL FINDINGS OF BLOOD CHEMISTRY (5) HTN (hypertension) Code(s): I10 - ESSENTIAL (PRIMARY) HYPERTENSION Qualifiers: Hypertension type: essential hypertension Qualified Code(s): I10 - Essential (primary) hypertension (6) Hypercholesterolemia Code(s): E78.00 - PURE HYPERCHOLESTEROLEMIA, UNSPECIFIED (7) Leukocytosis Code(s): D72.829 - ELEVATED WHITE BLOOD CELL COUNT, UNSPECIFIED (8) Transaminitis Code(s): R74.0 - NONSPEC ELEV OF LEVELS OF TRANSAMNS & LACTIC ACID DEHYDRGNSE Assessment/Plan 12/12/2018 Echo: Mildly dilated with moderate-severe decreased LVEF 35-40%, mild MR, TR, mild AR, mod ADAM, restrictive physiology 1. Shortness of breath, weakness with small pleural effusion improving 2/2 2. Acute on chronic systolic failure with subendocardial ischemia resolved 3. HTN heart disease at goal BP 4. Hypercholesterolemia 5. Organic brain syndrome/dementia 6. Leukocytosis and diarrhea resolving, ruled out c. diff 7. Abnormal LFT c/w hepatic congestion improving 8. Acute on CKD improving 9. NSVT 10. Large bilateral hydroceles PLAN: 1. Continue Carvedilol 25 bid, Losartan 50 qd and Atorvastatin 80 qhs as tolerated 2. Not on aldosterone inhibition due to CKD 3. Complete empiric antibiotic coverage 4. Troponin plateaued, WBC trending downwards 5. DVT prophylaxis 6. Given patient's recovery from acute on chronic systolic failure and current euvolemic status, absence of symptoms of malignant arrhythmia or acute coronary syndrome, he may proceed with cystoscopy from CV-standpoint w/o further testing. D/w daughter .
[2018-12-27] MEDS: LOSARTAN POTASSIUM 50 MG TABLET (FP) PO SCH (10:25)
[2018-12-27] MEDS: CARVEDILOL 25 MG TABLET (FP) PO SCH (10:25)
[2018-12-27] MEDS: HEPARIN NA (PORCINE) 5,000 UNITS/ML 1ML VIAL SQ SCH (10:49)
[2018-12-27] MEDS: HALOPERIDOL 2 MG TABLET PO SCH (10:50)
[2018-12-27] MEDS ORDERED: LIDOCAINE HCL/PF 2% SDV 5ML VIAL ONE (13:16)
[2018-12-27] MEDS ORDERED: ETOMIDATE 20 MG/10 ML AMPUL IVPUSH ONE (13:16)
[2018-12-27] MEDS ORDERED: DEXAMETHASONE SOD PHOSPHATE 4 MG/1 ML VIAL ONE (13:16)
[2018-12-27] MEDS ORDERED: PROPOFOL 20 ML ONE (13:18)
[2018-12-27] MEDS ORDERED: ROCURONIUM BROMIDE 50 MG/5 ML SYRINGE ONE (13:19)
[2018-12-27] MEDS ORDERED: ONDANSETRON 4 MG/2 ML VIAL IVPUSH PRN (13:28)
[2018-12-27] MEDS ORDERED: LACTATED RINGERS SOLUTION 1,000 ML IV SCH (13:30)
[2018-12-27] MEDS ORDERED: ceFAZolin SODIUM 1 GM VIAL ONE (14:47)
[2018-12-27] MEDS ORDERED: ceFAZolin SODIUM 1 GM VIAL IVPB ONE (14:48)
[2018-12-27] MEDS ORDERED: ePHEDrine SULFATE 50 MG/1 ML AMPULE ONE (15:11)
[2018-12-27] MEDS ORDERED: NEOSTIGMINE METHYLSULFATE 0.5 MG/1 ML - 10 ML MDV ONE (15:31)
--- NOTE | 2018-12-27 16:12 | OP ---
Operative Note - Note: Operative Date: 12/27/18 Pre-Operative Diagnosis: Urinary retention, BPH and Hydrocele Bilateral Operation: Cysto TUVP and aspiration of Hydrocele Findings: Large obstructive prostate, residual urine over 500 ccs and large hydrocele fluid collection over 6oo ccs Post-Operative Diagnosis: Same as Pre-op Surgeon: Samir Belcher Anesthesia: General Specimens Removed: Hydrocele fluid Operative Report Dictated: Yes
--- NOTE | 2018-12-27 16:16 | PN ---
Progress Note, Physician History of Present Illness: Pt seen and examined in recovery room. He is still sedated. - Current Medication List Current Medications: Active Medications Acetaminophen (Tylenol -) 650 mg PO Q6H PRN PRN Reason: FEVER Last Admin: 12/24/18 21:22 Dose: 650 mg Atorvastatin Calcium (Lipitor -) 80 mg PO HS [facility] Last Admin: 12/26/18 21:56 Dose: 80 mg Carvedilol (Coreg -) 25 mg PO BID [facility] Last Admin: 12/27/18 10:25 Dose: 25 mg Cefazolin Sodium/Dextrose (Ancef 2 Gm Premixed Ivpb -) 2 gm IVPB Q8H-IV [facility] Stop: 12/28/18 17:59 Fentanyl (Sublimaze Injection -) 25 mcg IVPUSH [id number] PRN PRN Reason: PAIN-PACU ORDER X 4 DOSES ONLY Furosemide (Lasix -) 20 mg PO DAILY [facility] Haloperidol (Haldol -) 2 mg PO BID [facility] Last Admin: 12/27/18 10:50 Dose: Not Given Heparin Sodium (Porcine) (Heparin -) 5,000 unit SQ BID [facility] Last Admin: 12/27/18 10:49 Dose: Not Given Lactated Ringer's (Lactated Ringers Solution) 1,000 mls @ 75 mls/hr IV ASDIR [facility] Losartan Potassium (Cozaar -) 50 mg PO DAILY [facility] Last Admin: 12/27/18 10:25 Dose: 50 mg Ondansetron HCl (Zofran Injection) 4 mg IVPUSH Q6H PRN PRN Reason: NAUSEA AND/OR VOMITING Oxycodone/Acetaminophen (Percocet 5/325 -) 2 combo PO Q6HPO PRN PRN Reason: PAIN LEVEL 6-10 Tamsulosin HCl (Flomax -) 0.[address] [facility] Last Admin: 12/26/18 21:56 Dose: 0.4 mg - Objective Vital Signs: Vital Signs Temperature 98.3 F 12/27/18 13:29 Pulse Rate 63 12/27/18 13:29 Respiratory Rate 18 12/27/18 13:29 Blood Pressure 140/80 12/27/18 13:29 O2 Sat by Pulse Oximetry (%) 96 12/26/18 21:00 Constitutional: Yes: Calm Eyes: Yes: Conjunctiva Clear HENT: Yes: Atraumatic Cardiovascular: Yes: S1, S2 Respiratory: Yes: CTA Bilaterally, On Nasal O2 Gastrointestinal: Yes: Soft Genitourinary: Yes: Jeffries Present, Other (cbi) Edema: No Integumentary: Yes: WNL Neurological: Yes: Lethargy Labs: CBC, BMP 12/26/18 07:40 12/26/18 07:40 INR, PTT INR 1.62 (0.83-1.09) H 12/10/18 15:07 Problem List - Problems (1) ALIYA (acute kidney injury) Code(s): N17.9 - ACUTE KIDNEY FAILURE, UNSPECIFIED (2) Altered mental status Code(s): R41.82 - ALTERED MENTAL STATUS, UNSPECIFIED Assessment/Plan Current Medications Generic Name Dose Route Start Last Admin Trade Name Freq PRN Reason Stop Dose Admin Acetaminophen 650 mg 12/10/18 20:42 12/24/18 21:22 Tylenol - PO 650 mg Q6H PRN Administration FEVER Atorvastatin Calcium 80 mg 12/10/18 22:00 12/26/18 21:56 Lipitor - PO 80 mg HS [facility] Administration Carvedilol 25 mg 12/17/18 22:00 12/27/18 10:25 Coreg - PO 25 mg BID [facility] Administration Cefazolin Sodium/Dextrose 2 gm 12/27/18 18:00 Ancef 2 Gm Premixed Ivpb - IVPB 12/28/18 17:59 Q8H-IV [facility] Fentanyl 25 mcg 12/27/18 13:28 Sublimaze Injection - IVPUSH [id number] PRN PAIN-PACU ORDER X 4 DOSES ONLY Furosemide 20 mg 12/28/18 10:00 Lasix - PO DAILY [facility] Haloperidol 2 mg 12/11/18 22:00 12/27/18 10:50 Haldol - PO Not Given BID [facility] Heparin Sodium (Porcine) 5,000 unit 12/24/18 10:00 12/27/18 10:49 Heparin - SQ Not Given BID [facility] Lactated Ringer's 1,000 mls @ 75 mls/hr 12/27/18 13:30 Lactated Ringers Solution IV ASDIR [facility] Losartan Potassium 50 mg 12/11/18 10:00 12/27/18 10:25 Cozaar - PO 50 mg DAILY [facility] Administration Ondansetron HCl 4 mg 12/27/18 13:28 Zofran Injection IVPUSH Q6H PRN NAUSEA AND/OR VOMITING Oxycodone/Acetaminophen 2 combo 12/27/18 16:08 Percocet 5/325 - PO Q6HPO PRN PAIN LEVEL 6-10 Tamsulosin HCl 0.4 mg 12/10/18 22:00 12/26/18 21:56 Flomax - PO 0.4 mg HS [facility] Administration Impression 1. CKD 2. HTN 3. CHF 4. weakness 5. dementia 6. bilateral hydroceles Plan - renal function stable - can d/c fluids once recovered and eating - monitor urine output - urology follow up, pt s/p cysto - bmp reviewed
[2018-12-27] MEDS ORDERED: LORazepam 2 MG/ML SDV VIAL IVPUSH ONE (16:17)
[2018-12-27] MEDS ORDERED: LORazepam 2 MG/ML SDV VIAL ONE (16:17)
--- NOTE | 2018-12-27 16:35 | OP ---
DATE OF OPERATION: 12/27/2018 SURGEON: Samir Belcher MD ANESTHESIA: General. PREOPERATIVE DIAGNOSIS: Urinary retention, benign prostatic hypertrophy, and large bilateral hydrocele. POSTOPERATIVE DIAGNOSIS: Urinary retention, benign prostatic hypertrophy, and large bilateral hydrocele. PROCEDURE: Cystoscopy and transurethral vaporization of the prostate and aspiration of the hydrocele. FINDINGS: Urethra were normal. Bladder neck obstructed with enlarged prostate gland of about 50 g. Residual urine was over 500 mL. Most of the hydrocele was in the right side. The skin was extremely thick probably from edema and as part of generalized anasarca. The fluid drained out of the hydrocele is over 600 mL of clear, ambulate-colored liquid. DESCRIPTION OF PROCEDURE: Patient in lithotomy position under anesthesia was prepped and draped in the usual manner. Using 22 scope, cystoscopy performed, and findings were noted above. Then using 26-degree resectoscope and using the button, prostate was vaporized, and good channel was noted. The procedure was carried out just to produce a channel, not to remove the whole prostate. Multiple bleeding points were electrocoagulated. Then a 22, 3-way catheter was left indwelling. Because the patient is on heparin, it was decided to put him on irrigation for overnight. Then in the same position, a needle was passed into the right hydrocele, and about 450 mL evacuated. A similar procedure was carried out on the left side, but the tissue edema was found to be much greater than expected, so it was decided to stop the procedure at this point. Patient tolerated the procedure well. A 22 Jeffries was left indwelling. Continuous irrigation started. Patient left the operating room under satisfactory condition. Eduardo KNUTSON/[id number]
[2018-12-27] MEDS ORDERED: oxyCODONE HCL 5 MG TABLET PO PRN (17:00)
--- NOTE | 2018-12-27 17:08 | PN ---
Progress Note, Physician History of Present Illness: s/p surgery cysto, turp and aspiration of hydrocele - Current Medication List Current Medications: Active Medications Acetaminophen (Tylenol -) 650 mg PO Q6H PRN PRN Reason: FEVER Last Admin: 12/24/18 21:22 Dose: 650 mg Acetaminophen (Tylenol -) 650 mg PO Q6H PRN PRN Reason: PAIN SCALE 6-10 Atorvastatin Calcium (Lipitor -) 80 mg PO HS [facility] Last Admin: 12/26/18 21:56 Dose: 80 mg Carvedilol (Coreg -) 25 mg PO BID [facility] Last Admin: 12/27/18 10:25 Dose: 25 mg Cefazolin Sodium/Dextrose (Ancef 2 Gm Premixed Ivpb -) 2 gm IVPB Q8H [facility] Stop: 12/28/18 22:59 Fentanyl (Sublimaze Injection -) 25 mcg IVPUSH [id number] PRN PRN Reason: PAIN-PACU ORDER X 4 DOSES ONLY Furosemide (Lasix -) 20 mg PO DAILY [facility] Haloperidol (Haldol -) 2 mg PO BID [facility] Last Admin: 12/27/18 10:50 Dose: Not Given Heparin Sodium (Porcine) (Heparin -) 5,000 unit SQ BID [facility] Last Admin: 12/27/18 10:49 Dose: Not Given Lactated Ringer's (Lactated Ringers Solution) 1,000 mls @ 75 mls/hr IV ASDIR [facility] Losartan Potassium (Cozaar -) 50 mg PO DAILY [facility] Last Admin: 12/27/18 10:25 Dose: 50 mg Ondansetron HCl (Zofran Injection) 4 mg IVPUSH Q6H PRN PRN Reason: NAUSEA AND/OR VOMITING Oxycodone HCl (Roxicodone -) 10 mg PO Q6H PRN PRN Reason: PAIN SCALE 6-10 Tamsulosin HCl (Flomax -) 0.4 mg PO [facility] Last Admin: 12/26/18 21:56 Dose: 0.4 mg - Objective Vital Signs: Vital Signs Temperature 97.5 F L 12/27/18 15:59 Pulse Rate 66 12/27/18 16:45 Respiratory Rate 18 12/27/18 16:45 Blood Pressure 152/100 12/27/18 16:45 O2 Sat by Pulse Oximetry (%) 100 12/27/18 16:45 Constitutional: Yes: No Distress HENT: Yes: Atraumatic Neck: Yes: Supple Cardiovascular: Yes: Regular Rate and Rhythm Respiratory: Yes: CTA Bilaterally Gastrointestinal: Yes: Normal Bowel Sounds Extremities: Yes: WNL Neurological: Yes: Alert Labs: CBC, BMP 12/26/18 07:40 12/26/18 07:40 INR, PTT INR 1.62 (0.83-1.09) H 12/10/18 15:07 Problem List - Problems (1) ALIYA (acute kidney injury) Assessment/Plan: monitor improving renal consult Code(s): N17.9 - ACUTE KIDNEY FAILURE, UNSPECIFIED (2) Altered mental status Assessment/Plan: doing well alert talking Code(s): R41.82 - ALTERED MENTAL STATUS, UNSPECIFIED (3) Elevated troponin I level Code(s): R79.89 - OTHER SPECIFIED ABNORMAL FINDINGS OF BLOOD CHEMISTRY (4) Pneumonia Code(s): J18.9 - PNEUMONIA, UNSPECIFIED ORGANISM (5) UTI (urinary tract infection) Assessment/Plan: on iv abx Code(s): N39.0 - URINARY TRACT INFECTION, SITE NOT SPECIFIED (6) HTN (hypertension) Assessment/Plan: on meds Code(s): I10 - ESSENTIAL (PRIMARY) HYPERTENSION Qualifiers: Hypertension type: essential hypertension Qualified Code(s): I10 - Essential (primary) hypertension (7) Hypercholesterolemia Assessment/Plan: on meds Code(s): E78.00 - PURE HYPERCHOLESTEROLEMIA, UNSPECIFIED (8) Hydrocele in adult Assessment/Plan: for cysto/turp tomorrow as per urology Code(s): N43.3 - HYDROCELE, UNSPECIFIED (9) Dementia Code(s): F03.90 - UNSPECIFIED DEMENTIA WITHOUT BEHAVIORAL DISTURBANCE Qualifiers: Dementia type: unspecified type (10) Leukocytosis Code(s): D72.829 - ELEVATED WHITE BLOOD CELL COUNT, UNSPECIFIED
[2018-12-27] MEDS ORDERED: PT OWN MED DRAWER 7, Y5N ONE (19:24)
[2018-12-27] MEDS: ceFAZolin 2 GRAM PREMIX BAG IVPB SCH (22:17)
[2018-12-28] MEDS: ceFAZolin 2 GRAM PREMIX BAG IVPB SCH ×2 (06:04→15:20)
[2018-12-28 07:49] LABS: HEMATOCRIT 37.8 % (35.4-49); MCH 29.9 pg (25.7-33.7); MCHC 31.6 g/dl (32.0-35.9); MEAN CELL VOLUME 94.6 fl (80-96); MEAN PLT VOLUME 11.9 fl (7.5-11.1); PLATELET COUNT 260 K/MM3 (134-434); RDW 16.7 % (11.9-15.9)
[2018-12-28 08:20] LABS: ALBUMIN 2.5 g/dl (3.4-5.0); BILIRUBIN,TOTAL 0.7 mg/dL (0.2-1); BLOOD UREA NITROGEN 17.4 mg/dL (7-18); CALCIUM 8.8 mg/dL (8.5-10.1); CREATININE 2.1 mg/dL (0.55-1.3); POTASSIUM 4.6 mmol/L (3.5-5.1); TOT PROT 6.8 g/dl (6.4-8.2)
[2018-12-28] MEDS: FUROSEMIDE 20 MG TABLET (FP) PO SCH (10:20)
--- NOTE | 2018-12-28 10:53 | PN ---
Progress Note, Physician History of Present Illness: stable post cystoscopy on cbi - Current Medication List Current Medications: Active Medications Acetaminophen (Tylenol -) 650 mg PO Q6H PRN PRN Reason: PAIN SCALE 6-10 Cefazolin Sodium/Dextrose (Ancef 2 Gm Premixed Ivpb -) 2 gm IVPB Q8H [facility] Stop: 12/28/18 22:59 Last Admin: 12/28/18 06:04 Dose: 2 gm Furosemide (Lasix -) 20 mg PO DAILY [facility] Last Admin: 12/28/18 10:20 Dose: 20 mg Oxycodone HCl (Roxicodone -) 10 mg PO Q6H PRN PRN Reason: PAIN SCALE 6-10 - Objective Vital Signs: Vital Signs Temperature 98.4 F 12/28/18 06:54 Pulse Rate 79 12/28/18 06:54 Respiratory Rate 20 12/28/18 06:54 Blood Pressure 138/82 12/28/18 06:54 O2 Sat by Pulse Oximetry (%) 95 12/27/18 19:00 Constitutional: Yes: No Distress, Calm Cardiovascular: Yes: S1, S2 Respiratory: Yes: Regular, CTA Bilaterally Gastrointestinal: Yes: Normal Bowel Sounds, Soft Genitourinary: Yes: Jeffries Present, Other (cbi) Musculoskeletal: Yes: WNL Extremities: Yes: WNL Neurological: Yes: Alert Psychiatric: Yes: Alert Labs: CBC, BMP 12/28/18 07:25 12/28/18 07:25 INR, PTT INR 1.62 (0.83-1.09) H 12/10/18 15:07 Assessment/Plan roblem List - Problems (1) ALIYA (acute kidney injury) Code(s): N17.9 - ACUTE KIDNEY FAILURE, UNSPECIFIED (2) Dementia Code(s): F03.90 - UNSPECIFIED DEMENTIA WITHOUT BEHAVIORAL DISTURBANCE Qualifiers: Dementia type: unspecified type (3) HTN (hypertension) Code(s): I10 - ESSENTIAL (PRIMARY) HYPERTENSION Qualifiers: Hypertension type: essential hypertension Qualified Code(s): I10 - Essential (primary) hypertension (4) Hydrocele in adult Code(s): N43.3 - HYDROCELE, UNSPECIFIED (5) Leukocytosis Code(s): D72.829 - ELEVATED WHITE BLOOD CELL COUNT, UNSPECIFIED (6) UTI (urinary tract infection) Code(s): N39.0 - URINARY TRACT INFECTION, SITE NOT SPECIFIED Assessment/Plan Diarrhea UTI Leukocytosis plan continue current mgmt cbi rest as per urology
--- NOTE | 2018-12-28 12:19 | PN ---
Progress Note, Physician History of Present Illness: s/p surgery cysto, turp and aspiration of hydrocele - Current Medication List Current Medications: Active Medications Acetaminophen (Tylenol -) 650 mg PO Q6H PRN PRN Reason: PAIN SCALE 6-10 Cefazolin Sodium/Dextrose (Ancef 2 Gm Premixed Ivpb -) 2 gm IVPB Q8H [facility] Stop: 12/28/18 22:59 Last Admin: 12/28/18 06:04 Dose: 2 gm Furosemide (Lasix -) 20 mg PO DAILY [facility] Last Admin: 12/28/18 10:20 Dose: 20 mg Oxycodone HCl (Roxicodone -) 10 mg PO Q6H PRN PRN Reason: PAIN SCALE 6-10 - Objective Vital Signs: Vital Signs Temperature 98.4 F 12/28/18 06:54 Pulse Rate 79 12/28/18 06:54 Respiratory Rate 20 12/28/18 06:54 Blood Pressure 138/82 12/28/18 06:54 O2 Sat by Pulse Oximetry (%) 95 12/27/18 19:00 Constitutional: Yes: No Distress HENT: Yes: Atraumatic Neck: Yes: Supple Cardiovascular: Yes: Regular Rate and Rhythm Respiratory: Yes: CTA Bilaterally Gastrointestinal: Yes: Normal Bowel Sounds Extremities: Yes: WNL Edema: No Peripheral Pulses WNL: Yes Neurological: Yes: Alert, Oriented Labs: CBC, BMP 12/28/18 07:25 12/28/18 07:25 INR, PTT INR 1.62 (0.83-1.09) H 12/10/18 15:07 Problem List - Problems (1) ALIYA (acute kidney injury) Assessment/Plan: monitor improving renal consult Code(s): N17.9 - ACUTE KIDNEY FAILURE, UNSPECIFIED (2) Altered mental status Assessment/Plan: doing well alert talking Code(s): R41.82 - ALTERED MENTAL STATUS, UNSPECIFIED (3) Elevated troponin I level Code(s): R79.89 - OTHER SPECIFIED ABNORMAL FINDINGS OF BLOOD CHEMISTRY (4) Pneumonia Code(s): J18.9 - PNEUMONIA, UNSPECIFIED ORGANISM (5) UTI (urinary tract infection) Code(s): N39.0 - URINARY TRACT INFECTION, SITE NOT SPECIFIED (6) HTN (hypertension) Assessment/Plan: on meds Code(s): I10 - ESSENTIAL (PRIMARY) HYPERTENSION Qualifiers: Hypertension type: essential hypertension Qualified Code(s): I10 - Essential (primary) hypertension (7) Hypercholesterolemia Assessment/Plan: on meds Code(s): E78.00 - PURE HYPERCHOLESTEROLEMIA, UNSPECIFIED (8) Hydrocele in adult Assessment/Plan: for cysto/turp tomorrow as per urology Code(s): N43.3 - HYDROCELE, UNSPECIFIED (9) Dementia Code(s): F03.90 - UNSPECIFIED DEMENTIA WITHOUT BEHAVIORAL DISTURBANCE Qualifiers: Dementia type: unspecified type (10) Leukocytosis Code(s): D72.829 - ELEVATED WHITE BLOOD CELL COUNT, UNSPECIFIED
--- NOTE | 2018-12-28 17:59 | PN ---
Progress Note, Physician History of Present Illness: Pt seen and examined at bedside. He is awake but confused. - Current Medication List Current Medications: Active Medications Acetaminophen (Tylenol -) 650 mg PO Q6H PRN PRN Reason: PAIN SCALE 6-10 Cefazolin Sodium/Dextrose (Ancef 2 Gm Premixed Ivpb -) 2 gm IVPB Q8H [facility] Stop: 12/28/18 22:59 Last Admin: 12/28/18 15:20 Dose: 2 gm Furosemide (Lasix -) 20 mg PO DAILY [facility] Last Admin: 12/28/18 10:20 Dose: 20 mg Oxycodone HCl (Roxicodone -) 10 mg PO Q6H PRN PRN Reason: PAIN SCALE 6-10 - Objective Vital Signs: Vital Signs Temperature 98.5 F 12/28/18 17:33 Pulse Rate 72 12/28/18 17:33 Respiratory Rate 20 12/28/18 17:33 Blood Pressure 140/74 12/28/18 17:33 O2 Sat by Pulse Oximetry (%) 95 12/27/18 19:00 Constitutional: Yes: Calm Eyes: Yes: Conjunctiva Clear HENT: Yes: Atraumatic Neck: Yes: Supple Cardiovascular: Yes: S1, S2 Respiratory: Yes: CTA Bilaterally Gastrointestinal: Yes: Normal Bowel Sounds, Soft Genitourinary: Yes: Jeffries Present Musculoskeletal: Yes: WNL Edema: No Neurological: Yes: Confusion Labs: CBC, BMP 12/28/18 07:25 12/28/18 07:25 INR, PTT INR 1.62 (0.83-1.09) H 12/10/18 15:07 Problem List - Problems (1) ALIYA (acute kidney injury) Code(s): N17.9 - ACUTE KIDNEY FAILURE, UNSPECIFIED (2) Altered mental status Code(s): R41.82 - ALTERED MENTAL STATUS, UNSPECIFIED Assessment/Plan Current Medications Generic Name Dose Route Start Last Admin Trade Name Freq PRN Reason Stop Dose Admin Acetaminophen 650 mg 12/27/18 17:00 Tylenol - PO Q6H PRN PAIN SCALE 6-10 Cefazolin Sodium/Dextrose 2 gm 12/27/18 23:00 12/28/18 15:20 Ancef 2 Gm Premixed Ivpb - IVPB 12/28/18 22:59 2 gm Q8H JONNY Administration Furosemide 20 mg 12/28/18 10:00 11/15/19 10:20 Lasix - PO 20 mg DAILY [facility] Administration Oxycodone HCl 10 mg 12/27/18 17:00 Roxicodone - PO Q6H PRN PAIN SCALE 6-10 Impression 1. CKD 2. HTN 3. CHF 4. weakness 5. dementia 6. bilateral hydroceles Plan - monitor renal function - monitor bp - monitor lytes on lasix - bmp reviewed
[2018-12-29] MEDS: ACETAMINOPHEN 325 MG TABLET (FP) PO PRN (04:01)
[2018-12-29 08:06] LABS: BASO % 0.3 % (0-2.0); EOS % 0.8 % (0-4.5); HEMATOCRIT 34.5 % (35.4-49); HEMOGLOBIN 11.1 GM/dL (11.7-16.9); LYMPH % 15.1 % (8-40); MCH 30.3 pg (25.7-33.7); MCHC 32.3 g/dl (32.0-35.9); MEAN CELL VOLUME 93.9 fl (80-96); MEAN PLT VOLUME 11.6 fl (7.5-11.1); MONO % 7.1 % (3.8-10.2); NEUT % 76.7 % (42.8-82.8); PLATELET COUNT 243 K/MM3 (134-434); RBC 3.68 M/mm3 (4.00-5.60); RDW 16.4 % (11.9-15.9); WHITE BLOOD COUNT 9.8 K/mm3 (4.0-10.0)
[2018-12-29 08:21] LABS: ALBUMIN 2.4 g/dl (3.4-5.0); BILIRUBIN,TOTAL 0.5 mg/dL (0.2-1); BLOOD UREA NITROGEN 21.5 mg/dL (7-18); CALCIUM 8.5 mg/dL (8.5-10.1); CREATININE 2.2 mg/dL (0.55-1.3); POTASSIUM 3.8 mmol/L (3.5-5.1); TOT PROT 6.5 g/dl (6.4-8.2)
[2018-12-29] MEDS: FUROSEMIDE 20 MG TABLET (FP) PO SCH (10:25)
[2018-12-29] MEDS: CARVEDILOL 25 MG TABLET (FP) PO SCH ×2 (10:25→21:22)
--- NOTE | 2018-12-29 11:20 | PN ---
Progress Note, Physician History of Present Illness: stable no new issues awake and alert - Current Medication List Current Medications: Active Medications Acetaminophen (Tylenol -) 650 mg PO Q6H PRN PRN Reason: PAIN SCALE 6-10 Last Admin: 12/29/18 04:01 Dose: 650 mg Carvedilol (Coreg -) 25 mg PO BID [facility] Last Admin: 12/29/18 10:25 Dose: 25 mg Furosemide (Lasix -) 20 mg PO DAILY [facility] Last Admin: 12/29/18 10:25 Dose: 20 mg Oxycodone HCl (Roxicodone -) 10 mg PO Q6H PRN PRN Reason: PAIN SCALE 6-10 - Objective Vital Signs: Vital Signs Temperature 96.4 F L 12/29/18 09:04 Pulse Rate 85 12/29/18 09:04 Respiratory Rate 18 12/29/18 09:04 Blood Pressure 138/91 12/29/18 09:04 O2 Sat by Pulse Oximetry (%) 95 12/28/18 09:00 Constitutional: Yes: No Distress, Calm Cardiovascular: Yes: S1, S2 Respiratory: Yes: Regular, CTA Bilaterally Gastrointestinal: Yes: Normal Bowel Sounds, Soft Musculoskeletal: Yes: WNL Extremities: Yes: WNL Neurological: Yes: Alert Psychiatric: Yes: Alert Labs: CBC, BMP 12/29/18 06:40 12/29/18 06:40 INR, PTT INR 1.62 (0.83-1.09) H 12/10/18 15:07 Assessment/Plan roblem List - Problems (1) ALIYA (acute kidney injury) Code(s): N17.9 - ACUTE KIDNEY FAILURE, UNSPECIFIED (2) Dementia Code(s): F03.90 - UNSPECIFIED DEMENTIA WITHOUT BEHAVIORAL DISTURBANCE Qualifiers: Dementia type: unspecified type (3) HTN (hypertension) Code(s): I10 - ESSENTIAL (PRIMARY) HYPERTENSION Qualifiers: Hypertension type: essential hypertension Qualified Code(s): I10 - Essential (primary) hypertension (4) Hydrocele in adult Code(s): N43.3 - HYDROCELE, UNSPECIFIED (5) Leukocytosis Code(s): D72.829 - ELEVATED WHITE BLOOD CELL COUNT, UNSPECIFIED (6) UTI (urinary tract infection) Code(s): N39.0 - URINARY TRACT INFECTION, SITE NOT SPECIFIED Assessment/Plan Diarrhea UTI Leukocytosis plan continue current mgmt cbi rest as per urology
--- NOTE | 2018-12-29 18:16 | PN ---
Progress Note, Physician History of Present Illness: Pt seen and examined. He appears comfortable. - Current Medication List Current Medications: Active Medications Acetaminophen (Tylenol -) 650 mg PO Q6H PRN PRN Reason: PAIN SCALE 6-10 Last Admin: 12/29/18 04:01 Dose: 650 mg Carvedilol (Coreg -) 25 mg PO BID [facility] Last Admin: 12/29/18 10:25 Dose: 25 mg Furosemide (Lasix -) 20 mg PO DAILY [facility] Last Admin: 12/29/18 10:25 Dose: 20 mg Oxycodone HCl (Roxicodone -) 10 mg PO Q6H PRN PRN Reason: PAIN SCALE 6-10 - Objective Vital Signs: Vital Signs Temperature 98.7 F 12/29/18 13:00 Pulse Rate 71 12/29/18 13:00 Respiratory Rate 18 12/29/18 13:00 Blood Pressure 115/68 12/29/18 13:00 O2 Sat by Pulse Oximetry (%) 98 12/29/18 09:00 Constitutional: Yes: Calm Eyes: Yes: Conjunctiva Clear HENT: Yes: Atraumatic Cardiovascular: Yes: S1, S2 Gastrointestinal: Yes: Soft Genitourinary: Yes: Jeffries Present Musculoskeletal: Yes: WNL Edema: No Neurological: Yes: Confusion Labs: CBC, BMP 12/29/18 06:40 12/29/18 06:40 INR, PTT INR 1.62 (0.83-1.09) H 12/10/18 15:07 Problem List - Problems (1) ALIYA (acute kidney injury) Code(s): N17.9 - ACUTE KIDNEY FAILURE, UNSPECIFIED (2) Altered mental status Code(s): R41.82 - ALTERED MENTAL STATUS, UNSPECIFIED Assessment/Plan Current Medications Generic Name Dose Route Start Last Admin Trade Name Freq PRN Reason Stop Dose Admin Acetaminophen 650 mg 12/27/18 17:00 12/29/18 04:01 Tylenol - PO 650 mg Q6H PRN Administration PAIN SCALE 6-10 Carvedilol 25 mg 12/29/18 10:00 12/29/18 10:25 Coreg - PO 25 mg BID [facility] Administration Furosemide 20 mg 12/28/18 10:00 12/29/18 10:25 Lasix - PO 20 mg DAILY [facility] Administration Oxycodone HCl 10 mg 12/27/18 17:00 Roxicodone - PO Q6H PRN PAIN SCALE 6-10 Impression 1. CKD 2. HTN 3. CHF 4. weakness 5. dementia 6. bilateral hydroceles Plan - renal function stabilizing - cont lasix - monitor volume status - discussed with family
--- NOTE | 2018-12-29 21:50 | PN ---
Progress Note, Physician - Current Medication List Current Medications: Active Medications Acetaminophen (Tylenol -) 650 mg PO Q6H PRN PRN Reason: PAIN SCALE 6-10 Last Admin: 12/29/18 04:01 Dose: 650 mg Carvedilol (Coreg -) 25 mg PO BID [facility] Last Admin: 12/29/18 21:22 Dose: 25 mg Furosemide (Lasix -) 20 mg PO DAILY [facility] Last Admin: 12/29/18 10:25 Dose: 20 mg Oxycodone HCl (Roxicodone -) 10 mg PO Q6H PRN PRN Reason: PAIN SCALE 6-10 - Objective Vital Signs: Vital Signs Temperature 97.9 F 12/29/18 19:37 Pulse Rate 86 12/29/18 19:37 Respiratory Rate 20 12/29/18 19:37 Blood Pressure 130/78 12/29/18 19:37 O2 Sat by Pulse Oximetry (%) 98 12/29/18 09:00 Labs: CBC, BMP 12/29/18 06:40 12/29/18 06:40 INR, PTT INR 1.62 (0.83-1.09) H 12/10/18 15:07 Problem List - Problems (1) Leukocytosis Code(s): D72.829 - ELEVATED WHITE BLOOD CELL COUNT, UNSPECIFIED (2) ALIYA (acute kidney injury) Code(s): N17.9 - ACUTE KIDNEY FAILURE, UNSPECIFIED (3) Dementia Code(s): F03.90 - UNSPECIFIED DEMENTIA WITHOUT BEHAVIORAL DISTURBANCE Qualifiers: Dementia type: unspecified type (4) Elevated troponin I level Code(s): R79.89 - OTHER SPECIFIED ABNORMAL FINDINGS OF BLOOD CHEMISTRY (5) HTN (hypertension) Code(s): I10 - ESSENTIAL (PRIMARY) HYPERTENSION Qualifiers: Hypertension type: essential hypertension Qualified Code(s): I10 - Essential (primary) hypertension (6) Hypercholesterolemia Code(s): E78.00 - PURE HYPERCHOLESTEROLEMIA, UNSPECIFIED (7) Transaminitis Code(s): R74.0 - NONSPEC ELEV OF LEVELS OF TRANSAMNS & LACTIC ACID DEHYDRGNSE
[2018-12-30 07:45] LABS: BLOOD UREA NITROGEN 16.7 mg/dL (7-18); CALCIUM 8.2 mg/dL (8.5-10.1); CREATININE 1.8 mg/dL (0.55-1.3); POTASSIUM 4.1 mmol/L (3.5-5.1)
[2018-12-30] MEDS: CARVEDILOL 25 MG TABLET (FP) PO SCH ×2 (09:34→21:11)
[2018-12-30] MEDS: FUROSEMIDE 20 MG TABLET (FP) PO SCH (09:34)
--- NOTE | 2018-12-30 12:16 | PN ---
Progress Note, Physician History of Present Illness: stable no new issues awake and alert - Current Medication List Current Medications: Active Medications Acetaminophen (Tylenol -) 650 mg PO Q6H PRN PRN Reason: PAIN SCALE 6-10 Last Admin: 12/29/18 04:01 Dose: 650 mg Carvedilol (Coreg -) 25 mg PO BID [facility] Last Admin: 12/30/18 09:34 Dose: 25 mg Furosemide (Lasix -) 20 mg PO DAILY [facility] Last Admin: 12/30/18 09:34 Dose: 20 mg Oxycodone HCl (Roxicodone -) 10 mg PO Q6H PRN PRN Reason: PAIN SCALE 6-10 - Objective Vital Signs: Vital Signs Temperature 98.0 F 12/30/18 08:38 Pulse Rate 81 12/30/18 08:38 Respiratory Rate 18 12/30/18 08:38 Blood Pressure 134/91 12/30/18 08:38 O2 Sat by Pulse Oximetry (%) 98 12/29/18 21:00 Constitutional: Yes: No Distress, Calm Cardiovascular: Yes: S1, S2 Respiratory: Yes: Regular, CTA Bilaterally Gastrointestinal: Yes: Normal Bowel Sounds, Soft Musculoskeletal: Yes: WNL Extremities: Yes: WNL Neurological: Yes: Alert Psychiatric: Yes: Other Labs: CBC, BMP 12/29/18 06:40 12/30/18 06:45 INR, PTT INR 1.62 (0.83-1.09) H 12/10/18 15:07 Assessment/Plan roblem List - Problems (1) ALIYA (acute kidney injury) Code(s): N17.9 - ACUTE KIDNEY FAILURE, UNSPECIFIED (2) Dementia Code(s): F03.90 - UNSPECIFIED DEMENTIA WITHOUT BEHAVIORAL DISTURBANCE Qualifiers: Dementia type: unspecified type (3) HTN (hypertension) Code(s): I10 - ESSENTIAL (PRIMARY) HYPERTENSION Qualifiers: Hypertension type: essential hypertension Qualified Code(s): I10 - Essential (primary) hypertension (4) Hydrocele in adult Code(s): N43.3 - HYDROCELE, UNSPECIFIED (5) Leukocytosis Code(s): D72.829 - ELEVATED WHITE BLOOD CELL COUNT, UNSPECIFIED (6) UTI (urinary tract infection) Code(s): N39.0 - URINARY TRACT INFECTION, SITE NOT SPECIFIED Assessment/Plan Diarrhea UTI Leukocytosis plan continue current mgmt cbi rest as per urology
[2018-12-30] MEDS: ACETAMINOPHEN 325 MG TABLET (FP) PO PRN ×2 (14:40→22:55)
--- NOTE | 2018-12-30 20:08 | PN ---
Progress Note, Physician History of Present Illness: Pt seen and examined at bedside. He is awake but remains confused. - Current Medication List Current Medications: Active Medications Acetaminophen (Tylenol -) 650 mg PO Q6H PRN PRN Reason: PAIN SCALE 6-10 Last Admin: 12/30/18 14:40 Dose: 650 mg Carvedilol (Coreg -) 25 mg PO BID JONNY Last Admin: 12/30/18 09:34 Dose: 25 mg Furosemide (Lasix -) 20 mg PO DAILY JONNY Last Admin: 12/30/18 09:34 Dose: 20 mg - Objective Vital Signs: Vital Signs Temperature 98.7 F 12/30/18 19:29 Pulse Rate 69 12/30/18 19:29 Respiratory Rate 20 12/30/18 19:29 Blood Pressure 123/68 12/30/18 19:29 O2 Sat by Pulse Oximetry (%) 98 12/30/18 09:00 Constitutional: Yes: Calm Eyes: Yes: Conjunctiva Clear HENT: Yes: Atraumatic Neck: Yes: Supple Cardiovascular: Yes: S1, S2 Respiratory: Yes: CTA Bilaterally Gastrointestinal: Yes: Normal Bowel Sounds, Soft Genitourinary: Yes: Jeffries Present Musculoskeletal: Yes: WNL Edema: Yes Edema: LLE: Trace, RLE: Trace Neurological: Yes: Confusion Labs: CBC, BMP 12/29/18 06:40 12/30/18 06:45 INR, PTT INR 1.62 (0.83-1.09) H 12/10/18 15:07 Problem List - Problems (1) ALIYA (acute kidney injury) Code(s): N17.9 - ACUTE KIDNEY FAILURE, UNSPECIFIED (2) Altered mental status Code(s): R41.82 - ALTERED MENTAL STATUS, UNSPECIFIED Assessment/Plan Current Medications Generic Name Dose Route Start Last Admin Trade Name Freq PRN Reason Stop Dose Admin Acetaminophen 650 mg 12/27/18 17:00 12/30/18 14:40 Tylenol - PO 650 mg Q6H PRN Administration PAIN SCALE 6-10 Carvedilol 25 mg 12/29/18 10:00 12/30/18 09:34 Coreg - PO 25 mg BID JONNY Administration Furosemide 20 mg 12/28/18 10:00 12/30/18 09:34 Lasix - PO 20 mg DAILY JONNY Administration Impression 1. CKD 2. HTN 3. CHF 4. weakness 5. dementia 6. 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
--- NOTE | 2018-12-30 20:34 | PN ---
Progress Note, Physician History of Present Illness: Pt slightly lerhargic - Current Medication List Current Medications: Active Medications Acetaminophen (Tylenol -) 650 mg PO Q6H PRN PRN Reason: PAIN SCALE 6-10 Last Admin: 12/30/18 14:40 Dose: 650 mg Carvedilol (Coreg -) 25 mg PO BID [facility] Last Admin: 12/30/18 09:34 Dose: 25 mg Furosemide (Lasix -) 20 mg PO DAILY [facility] Last Admin: 12/30/18 09:34 Dose: 20 mg - Objective Vital Signs: Vital Signs Temperature 98.7 F 12/30/18 19:29 Pulse Rate 69 12/30/18 19:29 Respiratory Rate 20 12/30/18 19:29 Blood Pressure 123/68 12/30/18 19:29 O2 Sat by Pulse Oximetry (%) 98 12/30/18 09:00 Cardiovascular: Yes: WNL, Regular Rate and Rhythm Respiratory: Yes: WNL, Regular, CTA Bilaterally Gastrointestinal: Yes: WNL, Normal Bowel Sounds, Soft Labs: CBC, BMP 12/29/18 06:40 12/30/18 06:45 INR, PTT INR 1.62 (0.83-1.09) H 12/10/18 15:07 Problem List - Problems (1) Leukocytosis Assessment/Plan: S/P cysto/TURP/aspiration hydrocele Cont IV antibxs Code(s): D72.829 - ELEVATED WHITE BLOOD CELL COUNT, UNSPECIFIED (2) ALIYA (acute kidney injury) Assessment/Plan: Jeffries has been removed Cont to monitor urine output Monitor labs Code(s): N17.9 - ACUTE KIDNEY FAILURE, UNSPECIFIED (3) Dementia Assessment/Plan: Cont haldolol Code(s): F03.90 - UNSPECIFIED DEMENTIA WITHOUT BEHAVIORAL DISTURBANCE Qualifiers: Dementia type: unspecified type (4) Elevated troponin I level Assessment/Plan: Due to demand ischemia Code(s): R79.89 - OTHER SPECIFIED ABNORMAL FINDINGS OF BLOOD CHEMISTRY (5) HTN (hypertension) Assessment/Plan: BP stable Code(s): I10 - ESSENTIAL (PRIMARY) HYPERTENSION Qualifiers: Hypertension type: essential hypertension Qualified Code(s): I10 - Essential (primary) hypertension (6) Hypercholesterolemia Code(s): E78.00 - PURE HYPERCHOLESTEROLEMIA, UNSPECIFIED (7) Transaminitis Code(s): R74.0 - NONSPEC ELEV OF LEVELS OF TRANSAMNS & LACTIC ACID DEHYDRGNSE
[2018-12-31] MEDS: TAMSULOSIN HCL 0.4 MG CAP PO SCH (09:45)
[2018-12-31] MEDS: CARVEDILOL 25 MG TABLET (FP) PO SCH ×2 (09:46→21:31)
[2018-12-31] MEDS: FUROSEMIDE 20 MG TABLET (FP) PO SCH (09:46)
--- NOTE | 2018-12-31 09:52 | PN ---
Progress Note, Physician History of Present Illness: stable no new issues - Current Medication List Current Medications: Active Medications Acetaminophen (Tylenol -) 650 mg PO Q6H PRN PRN Reason: PAIN SCALE 6-10 Last Admin: 12/30/18 22:55 Dose: 650 mg Carvedilol (Coreg -) 25 mg PO BID [facility] Last Admin: 12/31/18 09:46 Dose: 25 mg Furosemide (Lasix -) 20 mg PO DAILY [facility] Last Admin: 12/31/18 09:46 Dose: 20 mg Haloperidol (Haldol -) 1 mg PO Q12H PRN PRN Reason: AGITATION Tamsulosin HCl (Flomax -) 0.4 mg PO DAILY@0830 [facility] Last Admin: 12/31/18 09:45 Dose: 0.4 mg - Objective Vital Signs: Vital Signs Temperature 97.9 F 12/31/18 07:08 Pulse Rate 77 12/31/18 07:08 Respiratory Rate 20 12/31/18 07:08 Blood Pressure 148/98 12/31/18 07:08 O2 Sat by Pulse Oximetry (%) 98 12/30/18 21:00 Constitutional: Yes: No Distress, Calm Cardiovascular: Yes: S1, S2 Respiratory: Yes: Regular, CTA Bilaterally Gastrointestinal: Yes: Normal Bowel Sounds, Soft Genitourinary: Yes: Jeffries Present Musculoskeletal: Yes: WNL Extremities: Yes: WNL Neurological: Yes: Alert, Oriented Psychiatric: Yes: Alert, Oriented Labs: CBC, BMP 12/29/18 06:40 12/30/18 06:45 INR, PTT INR 1.62 (0.83-1.09) H 12/10/18 15:07 Assessment/Plan roblem List - Problems (1) ALIYA (acute kidney injury) Code(s): N17.9 - ACUTE KIDNEY FAILURE, UNSPECIFIED (2) Dementia Code(s): F03.90 - UNSPECIFIED DEMENTIA WITHOUT BEHAVIORAL DISTURBANCE Qualifiers: Dementia type: unspecified type (3) HTN (hypertension) Code(s): I10 - ESSENTIAL (PRIMARY) HYPERTENSION Qualifiers: Hypertension type: essential hypertension Qualified Code(s): I10 - Essential (primary) hypertension (4) Hydrocele in adult Code(s): N43.3 - HYDROCELE, UNSPECIFIED (5) Leukocytosis Code(s): D72.829 - ELEVATED WHITE BLOOD CELL COUNT, UNSPECIFIED (6) UTI (urinary tract infection) Code(s): N39.0 - URINARY TRACT INFECTION, SITE NOT SPECIFIED Assessment/Plan Diarrhea UTI Leukocytosis plan continue current mgmt awaiting foleys plan
--- NOTE | 2018-12-31 10:52 | PN ---
Progress Note (short form) - Note Progress Note: Pt. is doing well. Afebrile. Urine out put adequate, will d/c robin . He may be incontinent. Will just follow and decide about discharge tomorrow.
--- NOTE | 2018-12-31 16:15 | PN ---
Progress Note, Physician History of Present Illness: pt seen and examined at bedside. He appears comfortable. - Current Medication List Current Medications: Active Medications Acetaminophen (Tylenol -) 650 mg PO Q6H PRN PRN Reason: PAIN SCALE 6-10 Last Admin: 12/30/18 22:55 Dose: 650 mg Carvedilol (Coreg -) 25 mg PO BID [facility] Last Admin: 12/31/18 09:46 Dose: 25 mg Furosemide (Lasix -) 20 mg PO DAILY [facility] Last Admin: 12/31/18 09:46 Dose: 20 mg Haloperidol (Haldol -) 1 mg PO Q12H PRN PRN Reason: AGITATION Tamsulosin HCl (Flomax -) 0.4 mg PO DAILY@0830 [facility] Last Admin: 12/31/18 09:45 Dose: 0.4 mg - Objective Vital Signs: Vital Signs Temperature 98.9 F 12/31/18 12:54 Pulse Rate 74 12/31/18 12:54 Respiratory Rate 20 12/31/18 12:54 Blood Pressure 137/80 12/31/18 12:54 O2 Sat by Pulse Oximetry (%) 98 12/30/18 21:00 Constitutional: Yes: Calm Eyes: Yes: Conjunctiva Clear HENT: Yes: Atraumatic Cardiovascular: Yes: S1, S2 Respiratory: Yes: CTA Bilaterally Gastrointestinal: Yes: Soft Genitourinary: Yes: WNL Musculoskeletal: Yes: WNL Edema: Yes Edema: LLE: Trace, RLE: Trace Neurological: Yes: Confusion Labs: CBC, BMP 12/29/18 06:40 12/30/18 06:45 INR, PTT INR 1.62 (0.83-1.09) H 12/10/18 15:07 Problem List - Problems (1) ALIYA (acute kidney injury) Code(s): N17.9 - ACUTE KIDNEY FAILURE, UNSPECIFIED (2) Altered mental status Code(s): R41.82 - ALTERED MENTAL STATUS, UNSPECIFIED Assessment/Plan Current Medications Generic Name Dose Route Start Last Admin Trade Name Freq PRN Reason Stop Dose Admin Acetaminophen 650 mg 12/27/18 17:00 12/30/18 22:55 Tylenol - PO 650 mg Q6H PRN Administration PAIN SCALE 6-10 Carvedilol 25 mg 12/29/18 10:00 12/31/18 09:46 Coreg - PO 25 mg BID JONNY Administration Furosemide 20 mg 12/28/18 10:00 12/31/18 09:46 Lasix - PO 20 mg DAILY JONNY Administration Haloperidol 1 mg 12/30/18 20:38 Haldol - PO Q12H PRN AGITATION Tamsulosin HCl 0.4 mg 12/31/18 08:30 12/31/18 09:45 Flomax - PO 0.4 mg DAILY@0830 JONNY Administration Impression 1. CKD 2. HTN 3. CHF 4. weakness 5. dementia 6. bilateral hydroceles Plan - cont lasix - voiding trial - urology input appreciated - monitor volume status - outpt follow up
--- NOTE | 2018-12-31 17:59 | PN ---
Progress Note, Physician - Current Medication List Current Medications: Active Medications Acetaminophen (Tylenol -) 650 mg PO Q6H PRN PRN Reason: PAIN SCALE 6-10 Last Admin: 12/30/18 22:55 Dose: 650 mg Carvedilol (Coreg -) 25 mg PO BID [facility] Last Admin: 12/31/18 09:46 Dose: 25 mg Furosemide (Lasix -) 20 mg PO DAILY [facility] Last Admin: 12/31/18 09:46 Dose: 20 mg Haloperidol (Haldol -) 1 mg PO Q12H PRN PRN Reason: AGITATION Tamsulosin HCl (Flomax -) 0.4 mg PO DAILY@0830 [facility] Last Admin: 12/31/18 09:45 Dose: 0.4 mg - Objective Vital Signs: Vital Signs Temperature 98.7 F 12/31/18 17:16 Pulse Rate 80 12/31/18 17:16 Respiratory Rate 20 12/31/18 17:16 Blood Pressure 112/66 12/31/18 17:16 O2 Sat by Pulse Oximetry (%) 98 12/30/18 21:00 Constitutional: Yes: No Distress HENT: Yes: Atraumatic Neck: Yes: Supple Cardiovascular: Yes: Regular Rate and Rhythm Respiratory: Yes: CTA Bilaterally Gastrointestinal: Yes: Normal Bowel Sounds Extremities: Yes: WNL Neurological: Yes: Alert Labs: CBC, BMP 12/29/18 06:40 12/30/18 06:45 INR, PTT INR 1.62 (0.83-1.09) H 12/10/18 15:07 Problem List - Problems (1) ALIYA (acute kidney injury) Assessment/Plan: monitor improving renal consult Code(s): N17.9 - ACUTE KIDNEY FAILURE, UNSPECIFIED (2) Altered mental status Assessment/Plan: doing well alert talking Code(s): R41.82 - ALTERED MENTAL STATUS, UNSPECIFIED (3) Elevated troponin I level Code(s): R79.89 - OTHER SPECIFIED ABNORMAL FINDINGS OF BLOOD CHEMISTRY (4) Pneumonia Code(s): J18.9 - PNEUMONIA, UNSPECIFIED ORGANISM (5) UTI (urinary tract infection) Assessment/Plan: on iv abx Code(s): N39.0 - URINARY TRACT INFECTION, SITE NOT SPECIFIED (6) HTN (hypertension) Assessment/Plan: on meds Code(s): I10 - ESSENTIAL (PRIMARY) HYPERTENSION Qualifiers: Hypertension type: essential hypertension Qualified Code(s): I10 - Essential (primary) hypertension (7) Hypercholesterolemia Assessment/Plan: on meds Code(s): E78.00 - PURE HYPERCHOLESTEROLEMIA, UNSPECIFIED (8) Hydrocele in adult Assessment/Plan: s/p cysto/turp Code(s): N43.3 - HYDROCELE, UNSPECIFIED (9) Dementia Code(s): F03.90 - UNSPECIFIED DEMENTIA WITHOUT BEHAVIORAL DISTURBANCE Qualifiers: Dementia type: unspecified type (10) Leukocytosis Code(s): D72.829 - ELEVATED WHITE BLOOD CELL COUNT, UNSPECIFIED
[2019-01-01] MEDS ORDERED: PT OWN MED DRAWER 7, Y5N ONE (04:10)
[2019-01-01] MEDS: HALOPERIDOL 1 MG TABLET (FP) PO PRN (04:12)
[2019-01-01 09:14] LABS: BASO % 0.6 % (0-2.0); EOS % 2.7 % (0-4.5); HEMOGLOBIN 10.4 GM/dL (11.7-16.9); LYMPH % 20.4 % (8-40); MCH 29.9 pg (25.7-33.7); MCHC 31.6 g/dl (32.0-35.9); MEAN CELL VOLUME 94.4 fl (80-96); MEAN PLT VOLUME 11.9 fl (7.5-11.1); MONO % 8.5 % (3.8-10.2); NEUT % 67.8 % (42.8-82.8); PLATELET COUNT 172 K/MM3 (134-434); WHITE BLOOD COUNT 7.4 K/mm3 (4.0-10.0)
[2019-01-01 09:35] LABS: ALBUMIN 2.3 g/dl (3.4-5.0); BILIRUBIN,TOTAL 0.7 mg/dL (0.2-1); BLOOD UREA NITROGEN 14.2 mg/dL (7-18); CALCIUM 8.5 mg/dL (8.5-10.1); CREATININE 1.7 mg/dL (0.55-1.3); POTASSIUM 4.6 mmol/L (3.5-5.1); TOT PROT 6.5 g/dl (6.4-8.2)
[2019-01-01] MEDS: CARVEDILOL 25 MG TABLET (FP) PO SCH ×2 (10:28→21:37)
[2019-01-01] MEDS: TAMSULOSIN HCL 0.4 MG CAP PO SCH (10:28)
[2019-01-01] MEDS: ACETAMINOPHEN 325 MG TABLET (FP) PO PRN (10:28)
[2019-01-01] MEDS: FUROSEMIDE 20 MG TABLET (FP) PO SCH (10:29)
--- NOTE | 2019-01-01 11:13 | PN ---
Progress Note, Physician History of Present Illness: no new issues - Current Medication List Current Medications: Active Medications Acetaminophen (Tylenol -) 650 mg PO Q6H PRN PRN Reason: PAIN SCALE 6-10 Last Admin: 01/01/19 10:28 Dose: 650 mg Carvedilol (Coreg -) 25 mg PO BID [facility] Last Admin: 01/01/19 10:28 Dose: 25 mg Furosemide (Lasix -) 20 mg PO DAILY [facility] Last Admin: 01/01/19 10:29 Dose: 20 mg Haloperidol (Haldol -) 1 mg PO Q12H PRN PRN Reason: AGITATION Last Admin: 01/01/19 04:12 Dose: 1 mg Tamsulosin HCl (Flomax -) 0.4 mg PO DAILY@0830 [facility] Last Admin: 01/01/19 10:28 Dose: 0.4 mg - Objective Vital Signs: Vital Signs Temperature 98.6 F 01/01/19 10:25 Pulse Rate 78 01/01/19 10:25 Respiratory Rate 18 01/01/19 10:25 Blood Pressure 134/80 01/01/19 10:25 O2 Sat by Pulse Oximetry (%) 98 12/30/18 21:00 Constitutional: Yes: No Distress, Calm Cardiovascular: Yes: S1, S2 Respiratory: Yes: Regular, CTA Bilaterally Gastrointestinal: Yes: Normal Bowel Sounds, Soft Musculoskeletal: Yes: WNL Extremities: Yes: WNL Neurological: Yes: Alert, Other Labs: CBC, BMP 01/01/19 07:50 01/01/19 07:50 INR, PTT INR 1.62 (0.83-1.09) H 12/10/18 15:07 Assessment/Plan roblem List - Problems (1) ALIYA (acute kidney injury) Code(s): N17.9 - ACUTE KIDNEY FAILURE, UNSPECIFIED (2) Dementia Code(s): F03.90 - UNSPECIFIED DEMENTIA WITHOUT BEHAVIORAL DISTURBANCE Qualifiers: Dementia type: unspecified type (3) HTN (hypertension) Code(s): I10 - ESSENTIAL (PRIMARY) HYPERTENSION Qualifiers: Hypertension type: essential hypertension Qualified Code(s): I10 - Essential (primary) hypertension (4) Hydrocele in adult Code(s): N43.3 - HYDROCELE, UNSPECIFIED (5) Leukocytosis Code(s): D72.829 - ELEVATED WHITE BLOOD CELL COUNT, UNSPECIFIED (6) UTI (urinary tract infection) Code(s): N39.0 - URINARY TRACT INFECTION, SITE NOT SPECIFIED Assessment/Plan Diarrhea UTI Leukocytosis plan continue current mgmt await for final plan
--- NOTE | 2019-01-01 13:03 | PATH ---
Cytology Non-Gynecological Report Patient Name: DASHA WEISS Med. Rec. #: [id number] /Age/Gender: 1940 (Age: 78) / M Account: [id number] Location: [facility] MED/SURG Taken: 12/27/2018 Received: 12/28/2018 Reported: 01/01/2019 Physicians: Samir Belcher M.D. Specimen(s) Received BILATERAL HYDROCELE FLUID Clinical History Bilateral hydrocele, BPH Final Diagnosis HYDROCELE FLUID, BILATERAL, FOR CYTOLOGY: SATISFACTORY FOR EVALUATION. NO MALIGNANT CELLS IDENTIFIED. CYSTIC LESION WITH RARE DEGENERATED CELLS CONSISTENT WITH HYDROCELE. ABUNDANT PROTEINACEOUS MATERIAL/DEBRIS AND RARE DEGENERATED CELLS PRESENT. Electronically Signed Josselyn Jaeger M.D. Gross Description Approximately 75 cc of yellow fluid received fresh. One cytofunnel prepared and Pap stained. One cellblock prepared.
--- NOTE | 2019-01-01 16:32 | CON.GI ---
Consult Consult Specialty:: GI coverage for Dr Romo - History of Present Illness History of Present Illness: 78 y/o male was asked to be seen because of multiple masses by ultrasound not noted by Ct scan. He was admitted ALIYA, AMS elevated troponin, Pneumonia and UTI. During this admission he underwent a TURP. He is asymptomatic. 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: Yes: Dementia Cardio/Vascular: Yes: CHF Renal/: Yes: Renal Failure - Alcohol/Substance Use Hx Alcohol Use: No - Smoking History Smoking history: Unknown if ever smoked Have you smoked in the past 12 months: No Home Medications - Allergies Allergies/Adverse Reactions: Allergies Allergy/AdvReac Type Severity Reaction Status Date / Time No Known Allergies Allergy Verified 12/10/18 17:18 - Home Medications Home Medications: Ambulatory Orders Atorvastatin Ca [Lipitor] 80 mg PO HS 12/10/18 Carvedilol 12.5 mg PO BID 12/10/18 Furosemide 20 mg PO DAILY 12/10/18 Haloperidol 2 mg PO BID 12/10/18 Losartan Potassium 50 mg PO DAILY 12/10/18 Tamsulosin HCl [Flomax] 0.4 mg PO HS 12/10/18 Metronidazole 500 mg PO TID #15 tablet 12/24/18 Physical Exam-GI Vital Signs: Vital Signs Temperature 98.4 F 01/01/19 14:55 Pulse Rate 76 01/01/19 14:55 Respiratory Rate 20 01/01/19 14:55 Blood Pressure 140/90 01/01/19 14:55 O2 Sat by Pulse Oximetry (%) 96 01/01/19 08:45 Constitutional: Yes: Well Nourished Eyes: Yes: Conjunctiva Clear HENT: Yes: Atraumatic Neck: Yes: Supple Respiratory: Yes: CTA Bilaterally ...Palpate: Yes: Soft. 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
--- NOTE | 2019-01-01 17:34 | PN ---
Progress Note, Physician History of Present Illness: Pt seen and examined. He appears comfortable. - Current Medication List Current Medications: Active Medications Acetaminophen (Tylenol -) 650 mg PO Q6H PRN PRN Reason: PAIN SCALE 6-10 Last Admin: 01/01/19 10:28 Dose: 650 mg Carvedilol (Coreg -) 25 mg PO BID [facility] Last Admin: 01/01/19 10:28 Dose: 25 mg Furosemide (Lasix -) 20 mg PO DAILY [facility] Last Admin: 01/01/19 10:29 Dose: 20 mg Haloperidol (Haldol -) 1 mg PO Q12H PRN PRN Reason: AGITATION Last Admin: 01/01/19 04:12 Dose: 1 mg Tamsulosin HCl (Flomax -) 0.4 mg PO DAILY@0830 [facility] Last Admin: 01/01/19 10:28 Dose: 0.4 mg - Objective Vital Signs: Vital Signs Temperature 98.4 F 01/01/19 14:55 Pulse Rate 76 01/01/19 14:55 Respiratory Rate 20 01/01/19 14:55 Blood Pressure 140/90 01/01/19 14:55 O2 Sat by Pulse Oximetry (%) 96 01/01/19 08:45 Constitutional: Yes: Calm Eyes: Yes: Conjunctiva Clear HENT: Yes: Atraumatic Cardiovascular: Yes: S1, S2 Respiratory: Yes: CTA Bilaterally Gastrointestinal: Yes: Soft Genitourinary: Yes: WNL Musculoskeletal: Yes: WNL Edema: Yes Edema: LLE: Trace, RLE: Trace Neurological: Yes: Confusion Labs: CBC, BMP 01/01/19 07:50 01/01/19 07:50 INR, PTT INR 1.62 (0.83-1.09) H 12/10/18 15:07 Problem List - Problems (1) ALIYA (acute kidney injury) Code(s): N17.9 - ACUTE KIDNEY FAILURE, UNSPECIFIED (2) Altered mental status Code(s): R41.82 - ALTERED MENTAL STATUS, UNSPECIFIED Assessment/Plan Current Medications Generic Name Dose Route Start Last Admin Trade Name Freq PRN Reason Stop Dose Admin Acetaminophen 650 mg 12/27/18 17:00 01/01/19 10:28 Tylenol - PO 650 mg Q6H PRN Administration PAIN SCALE 6-10 Carvedilol 25 mg 12/29/18 10:00 01/01/19 10:28 Coreg - PO 25 mg BID JONNY Administration Furosemide 20 mg 12/28/18 10:00 01/01/19 10:29 Lasix - PO 20 mg DAILY JONNY Administration Haloperidol 1 mg 12/30/18 20:38 01/01/19 04:12 Haldol - PO 1 mg Q12H PRN Administration AGITATION Tamsulosin HCl 0.4 mg 12/31/18 08:30 01/01/19 10:28 Flomax - PO 0.4 mg DAILY@0830 JONNY Administration Impression 1. CKD 2. HTN 3. CHF 4. weakness 5. dementia 6. bilateral hydroceles Plan - cont with lasix - renal function stable - GI follow up - volume status stable - will follow PRN
--- NOTE | 2019-01-01 19:03 | PN ---
Progress Note, Physician - Current Medication List Current Medications: Active Medications Acetaminophen (Tylenol -) 650 mg PO Q6H PRN PRN Reason: PAIN SCALE 6-10 Last Admin: 01/01/19 10:28 Dose: 650 mg Carvedilol (Coreg -) 25 mg PO BID [facility] Last Admin: 01/01/19 10:28 Dose: 25 mg Furosemide (Lasix -) 20 mg PO DAILY [facility] Last Admin: 01/01/19 10:29 Dose: 20 mg Haloperidol (Haldol -) 1 mg PO Q12H PRN PRN Reason: AGITATION Last Admin: 01/01/19 04:12 Dose: 1 mg Tamsulosin HCl (Flomax -) 0.4 mg PO DAILY@0830 [facility] Last Admin: 01/01/19 10:28 Dose: 0.4 mg - Objective Vital Signs: Vital Signs Temperature 98.1 F 01/01/19 17:39 Pulse Rate 70 01/01/19 17:39 Respiratory Rate 20 01/01/19 17:39 Blood Pressure 120/88 01/01/19 17:39 O2 Sat by Pulse Oximetry (%) 96 01/01/19 08:45 Constitutional: Yes: No Distress HENT: Yes: Atraumatic Neck: Yes: Supple Cardiovascular: Yes: Regular Rate and Rhythm Respiratory: Yes: CTA Bilaterally Gastrointestinal: Yes: Normal Bowel Sounds Extremities: Yes: WNL Edema: No Neurological: Yes: Alert Labs: CBC, BMP 01/01/19 07:50 01/01/19 07:50 INR, PTT INR 1.62 (0.83-1.09) H 12/10/18 15:07 Problem List - Problems (1) ALIYA (acute kidney injury) Assessment/Plan: monitor improving renal consult Code(s): N17.9 - ACUTE KIDNEY FAILURE, UNSPECIFIED (2) Altered mental status Assessment/Plan: doing well alert talking Code(s): R41.82 - ALTERED MENTAL STATUS, UNSPECIFIED (3) Elevated troponin I level Code(s): R79.89 - OTHER SPECIFIED ABNORMAL FINDINGS OF BLOOD CHEMISTRY (4) Pneumonia Code(s): J18.9 - PNEUMONIA, UNSPECIFIED ORGANISM (5) UTI (urinary tract infection) Assessment/Plan: abx completed Code(s): N39.0 - URINARY TRACT INFECTION, SITE NOT SPECIFIED (6) HTN (hypertension) Assessment/Plan: on meds Code(s): I10 - ESSENTIAL (PRIMARY) HYPERTENSION Qualifiers: Hypertension type: essential hypertension Qualified Code(s): I10 - Essential (primary) hypertension (7) Hypercholesterolemia Assessment/Plan: on meds Code(s): E78.00 - PURE HYPERCHOLESTEROLEMIA, UNSPECIFIED (8) Hydrocele in adult Assessment/Plan: s/p cysto/turp Code(s): N43.3 - HYDROCELE, UNSPECIFIED (9) Dementia Code(s): F03.90 - UNSPECIFIED DEMENTIA WITHOUT BEHAVIORAL DISTURBANCE Qualifiers: Dementia type: unspecified type (10) Leukocytosis Code(s): D72.829 - ELEVATED WHITE BLOOD CELL COUNT, UNSPECIFIED (11) Liver mass Assessment/Plan: us liver done gi note reviewed Code(s): R16.0 - HEPATOMEGALY, NOT ELSEWHERE CLASSIFIED
[2019-01-02] MEDS: ACETAMINOPHEN 325 MG TABLET (FP) PO PRN (02:01)
[2019-01-02] MEDS: CARVEDILOL 25 MG TABLET (FP) PO SCH ×2 (09:59→23:12)
[2019-01-02] MEDS: TAMSULOSIN HCL 0.4 MG CAP PO SCH (09:59)
[2019-01-02] MEDS: FUROSEMIDE 20 MG TABLET (FP) PO SCH (09:59)
--- NOTE | 2019-01-02 11:11 | PN ---
Progress Note, Physician History of Present Illness: stable no new issues - Current Medication List Current Medications: Active Medications Acetaminophen (Tylenol -) 650 mg PO Q6H PRN PRN Reason: PAIN SCALE 6-10 Last Admin: 01/02/19 02:01 Dose: 650 mg Carvedilol (Coreg -) 25 mg PO BID [facility] Last Admin: 01/02/19 09:59 Dose: 25 mg Furosemide (Lasix -) 20 mg PO DAILY [facility] Last Admin: 01/02/19 09:59 Dose: 20 mg Haloperidol (Haldol -) 1 mg PO Q12H PRN PRN Reason: AGITATION Last Admin: 01/01/19 04:12 Dose: 1 mg Tamsulosin HCl (Flomax -) 0.4 mg PO DAILY@0830 [facility] Last Admin: 01/02/19 09:59 Dose: 0.4 mg - Objective Vital Signs: Vital Signs Temperature 98.5 F 01/02/19 06:00 Pulse Rate 73 01/02/19 06:00 Respiratory Rate 20 01/02/19 06:00 Blood Pressure 128/94 01/02/19 06:00 O2 Sat by Pulse Oximetry (%) 96 01/01/19 08:45 Constitutional: Yes: No Distress, Calm Cardiovascular: Yes: S1, S2 Respiratory: Yes: Regular, CTA Bilaterally Gastrointestinal: Yes: Normal Bowel Sounds, Soft Musculoskeletal: Yes: WNL Extremities: Yes: Other Neurological: Yes: Alert Psychiatric: Yes: Alert Labs: CBC, BMP 01/01/19 07:50 01/01/19 07:50 INR, PTT INR 1.62 (0.83-1.09) H 12/10/18 15:07 Assessment/Plan roblem List - Problems (1) ALIYA (acute kidney injury) Code(s): N17.9 - ACUTE KIDNEY FAILURE, UNSPECIFIED (2) Dementia Code(s): F03.90 - UNSPECIFIED DEMENTIA WITHOUT BEHAVIORAL DISTURBANCE Qualifiers: Dementia type: unspecified type (3) HTN (hypertension) Code(s): I10 - ESSENTIAL (PRIMARY) HYPERTENSION Qualifiers: Hypertension type: essential hypertension Qualified Code(s): I10 - Essential (primary) hypertension (4) Hydrocele in adult Code(s): N43.3 - HYDROCELE, UNSPECIFIED (5) Leukocytosis Code(s): D72.829 - ELEVATED WHITE BLOOD CELL COUNT, UNSPECIFIED (6) UTI (urinary tract infection) Code(s): N39.0 - URINARY TRACT INFECTION, SITE NOT SPECIFIED Assessment/Plan Diarrhea UTI Leukocytosis plan continue current mgmt await for final plan
--- NOTE | 2019-01-02 16:37 | PN ---
Progress Note, Physician - Current Medication List Current Medications: Active Medications Acetaminophen (Tylenol -) 650 mg PO Q6H PRN PRN Reason: PAIN SCALE 6-10 Last Admin: 01/02/19 02:01 Dose: 650 mg Carvedilol (Coreg -) 25 mg PO BID [facility] Last Admin: 01/02/19 09:59 Dose: 25 mg Furosemide (Lasix -) 20 mg PO DAILY [facility] Last Admin: 01/02/19 09:59 Dose: 20 mg Haloperidol (Haldol -) 1 mg PO Q12H PRN PRN Reason: AGITATION Last Admin: 01/01/19 04:12 Dose: 1 mg Tamsulosin HCl (Flomax -) 0.4 mg PO DAILY@0830 [facility] Last Admin: 01/02/19 09:59 Dose: 0.4 mg - Objective Vital Signs: Vital Signs Temperature 98.4 F 01/02/19 14:00 Pulse Rate 70 01/02/19 14:00 Respiratory Rate 20 01/02/19 14:00 Blood Pressure 134/86 01/02/19 14:00 O2 Sat by Pulse Oximetry (%) 96 01/01/19 08:45 Constitutional: Yes: No Distress HENT: Yes: Atraumatic Neck: Yes: Supple Cardiovascular: Yes: Regular Rate and Rhythm Respiratory: Yes: CTA Bilaterally Gastrointestinal: Yes: Normal Bowel Sounds Extremities: Yes: WNL Neurological: Yes: Alert, Oriented Labs: CBC, BMP 01/01/19 07:50 01/01/19 07:50 INR, PTT INR 1.62 (0.83-1.09) H 12/10/18 15:07 Problem List - Problems (1) ALIYA (acute kidney injury) Assessment/Plan: monitor improving renal consult Code(s): N17.9 - ACUTE KIDNEY FAILURE, UNSPECIFIED (2) Altered mental status Assessment/Plan: doing well alert talking Code(s): R41.82 - ALTERED MENTAL STATUS, UNSPECIFIED (3) Elevated troponin I level Code(s): R79.89 - OTHER SPECIFIED ABNORMAL FINDINGS OF BLOOD CHEMISTRY (4) Pneumonia Code(s): J18.9 - PNEUMONIA, UNSPECIFIED ORGANISM (5) UTI (urinary tract infection) Assessment/Plan: abx completed Code(s): N39.0 - URINARY TRACT INFECTION, SITE NOT SPECIFIED (6) HTN (hypertension) Assessment/Plan: on meds Code(s): I10 - ESSENTIAL (PRIMARY) HYPERTENSION Qualifiers: Hypertension type: essential hypertension Qualified Code(s): I10 - Essential (primary) hypertension (7) Hypercholesterolemia Code(s): E78.00 - PURE HYPERCHOLESTEROLEMIA, UNSPECIFIED (8) Hydrocele in adult Code(s): N43.3 - HYDROCELE, UNSPECIFIED (9) Dementia Code(s): F03.90 - UNSPECIFIED DEMENTIA WITHOUT BEHAVIORAL DISTURBANCE Qualifiers: Dementia type: unspecified type (10) Leukocytosis Code(s): D72.829 - ELEVATED WHITE BLOOD CELL COUNT, UNSPECIFIED (11) Liver mass Assessment/Plan: us liver done gi note reviewed FOR MRI LIVER Code(s): R16.0 - HEPATOMEGALY, NOT ELSEWHERE CLASSIFIED
--- NOTE | 2019-01-02 19:32 | PN ---
Progress Note (short form) - Note Progress Note: Pt seen/examined, sitting up, feeling weak though slightly better. Denies abdominal pain, n/v. On examination: Pt sitting in chair, appears comfortable Abd soft, nt, nd Labs and imaging reviewed. Assessment/plan: 78yo male presenting with weakness with US findings revealing fatty liver and multiple masses thought likely hemangiomas, awaiting MRI to further evaluate.
[2019-01-03] MEDS ORDERED: PT OWN MED DRAWER 7, Y5N ONE ×2 (09:46→19:02)
[2019-01-03] MEDS: CARVEDILOL 25 MG TABLET (FP) PO SCH ×2 (10:37→21:34)
[2019-01-03] MEDS: TAMSULOSIN HCL 0.4 MG CAP PO SCH (10:37)
[2019-01-03] MEDS: FUROSEMIDE 20 MG TABLET (FP) PO SCH (10:37)
--- NOTE | 2019-01-03 12:31 | PN ---
Progress Note, Physician History of Present Illness: stable no issues - Current Medication List Current Medications: Active Medications Acetaminophen (Tylenol -) 650 mg PO Q6H PRN PRN Reason: PAIN SCALE 6-10 Last Admin: 01/02/19 02:01 Dose: 650 mg Carvedilol (Coreg -) 25 mg PO BID [facility] Last Admin: 01/03/19 10:37 Dose: 25 mg Furosemide (Lasix -) 20 mg PO DAILY [facility] Last Admin: 01/03/19 10:37 Dose: 20 mg Haloperidol (Haldol -) 1 mg PO Q12H PRN PRN Reason: AGITATION Last Admin: 01/01/19 04:12 Dose: 1 mg Tamsulosin HCl (Flomax -) 0.4 mg PO DAILY@0830 [facility] Last Admin: 01/03/19 10:37 Dose: 0.4 mg - Objective Vital Signs: Vital Signs Temperature 98.5 F 01/03/19 06:52 Pulse Rate 74 01/03/19 06:52 Respiratory Rate 20 01/03/19 06:52 Blood Pressure 136/78 01/03/19 06:52 O2 Sat by Pulse Oximetry (%) 96 01/01/19 08:45 Constitutional: Yes: No Distress, Calm Cardiovascular: Yes: S1, S2 Respiratory: Yes: Regular, CTA Bilaterally Gastrointestinal: Yes: Normal Bowel Sounds, Soft Musculoskeletal: Yes: Other Extremities: Yes: Other Neurological: Yes: Alert Labs: CBC, BMP 01/01/19 07:50 INR, PTT INR 1.62 (0.83-1.09) H 12/10/18 15:07 Assessment/Plan roblem List - Problems (1) ALIYA (acute kidney injury) Code(s): N17.9 - ACUTE KIDNEY FAILURE, UNSPECIFIED (2) Dementia Code(s): F03.90 - UNSPECIFIED DEMENTIA WITHOUT BEHAVIORAL DISTURBANCE Qualifiers: Dementia type: unspecified type (3) HTN (hypertension) Code(s): I10 - ESSENTIAL (PRIMARY) HYPERTENSION Qualifiers: Hypertension type: essential hypertension Qualified Code(s): I10 - Essential (primary) hypertension (4) Hydrocele in adult Code(s): N43.3 - HYDROCELE, UNSPECIFIED (5) Leukocytosis Code(s): D72.829 - ELEVATED WHITE BLOOD CELL COUNT, UNSPECIFIED (6) UTI (urinary tract infection) Code(s): N39.0 - URINARY TRACT INFECTION, SITE NOT SPECIFIED Assessment/Plan Diarrhea UTI Leukocytosis plan continue current mgmt await for final plan
[2019-01-03 12:37] LABS: BLOOD UREA NITROGEN 20.1 mg/dL (7-18); CALCIUM 8.6 mg/dL (8.5-10.1); CREATININE 1.9 mg/dL (0.55-1.3); POTASSIUM 4.6 mmol/L (3.5-5.1)
--- NOTE | 2019-01-03 16:24 | PN ---
Progress Note, Physician - Current Medication List Current Medications: Active Medications Acetaminophen (Tylenol -) 650 mg PO Q6H PRN PRN Reason: PAIN SCALE 6-10 Last Admin: 01/02/19 02:01 Dose: 650 mg Carvedilol (Coreg -) 25 mg PO BID [facility] Last Admin: 01/03/19 10:37 Dose: 25 mg Furosemide (Lasix -) 20 mg PO DAILY [facility] Last Admin: 01/03/19 10:37 Dose: 20 mg Haloperidol (Haldol -) 1 mg PO Q12H PRN PRN Reason: AGITATION Last Admin: 01/01/19 04:12 Dose: 1 mg Tamsulosin HCl (Flomax -) 0.4 mg PO DAILY@0830 [facility] Last Admin: 01/03/19 10:37 Dose: 0.4 mg - Objective Vital Signs: Vital Signs Temperature 98.6 F 01/03/19 14:00 Pulse Rate 73 01/03/19 14:00 Respiratory Rate 18 01/03/19 14:00 Blood Pressure 148/72 01/03/19 14:00 O2 Sat by Pulse Oximetry (%) 96 01/01/19 08:45 Constitutional: Yes: No Distress HENT: Yes: Atraumatic Neck: Yes: Supple Cardiovascular: Yes: Regular Rate and Rhythm Respiratory: Yes: CTA Bilaterally Gastrointestinal: Yes: Normal Bowel Sounds Extremities: Yes: WNL Edema: No Neurological: Yes: Alert, Oriented Labs: CBC, BMP 01/01/19 07:50 01/03/19 11:40 INR, PTT INR 1.62 (0.83-1.09) H 12/10/18 15:07 Problem List - Problems (1) ALIYA (acute kidney injury) Assessment/Plan: monitor improving renal consult Code(s): N17.9 - ACUTE KIDNEY FAILURE, UNSPECIFIED (2) Altered mental status Assessment/Plan: doing well alert talking Code(s): R41.82 - ALTERED MENTAL STATUS, UNSPECIFIED (3) Elevated troponin I level Code(s): R79.89 - OTHER SPECIFIED ABNORMAL FINDINGS OF BLOOD CHEMISTRY (4) Pneumonia Code(s): J18.9 - PNEUMONIA, UNSPECIFIED ORGANISM (5) UTI (urinary tract infection) Assessment/Plan: abx completed Code(s): N39.0 - URINARY TRACT INFECTION, SITE NOT SPECIFIED (6) HTN (hypertension) Assessment/Plan: on meds Code(s): I10 - ESSENTIAL (PRIMARY) HYPERTENSION Qualifiers: Hypertension type: essential hypertension Qualified Code(s): I10 - Essential (primary) hypertension (7) Hypercholesterolemia Assessment/Plan: on meds Code(s): E78.00 - PURE HYPERCHOLESTEROLEMIA, UNSPECIFIED (8) Hydrocele in adult Assessment/Plan: s/p cysto/turp Code(s): N43.3 - HYDROCELE, UNSPECIFIED (9) Dementia Code(s): F03.90 - UNSPECIFIED DEMENTIA WITHOUT BEHAVIORAL DISTURBANCE Qualifiers: Dementia type: unspecified type (10) Leukocytosis Code(s): D72.829 - ELEVATED WHITE BLOOD CELL COUNT, UNSPECIFIED (11) Liver mass Assessment/Plan: us liver done gi note reviewed FOR MRI LIVER labs pending Code(s): R16.0 - HEPATOMEGALY, NOT ELSEWHERE CLASSIFIED
--- NOTE | 2019-01-03 16:31 | PN ---
Progress Note, Physician History of Present Illness: Pt seen and examined at bedside. He appears comfortable. - Current Medication List Current Medications: Active Medications Acetaminophen (Tylenol -) 650 mg PO Q6H PRN PRN Reason: PAIN SCALE 6-10 Last Admin: 01/02/19 02:01 Dose: 650 mg Carvedilol (Coreg -) 25 mg PO BID [facility] Last Admin: 01/03/19 10:37 Dose: 25 mg Furosemide (Lasix -) 20 mg PO DAILY [facility] Last Admin: 01/03/19 10:37 Dose: 20 mg Haloperidol (Haldol -) 1 mg PO Q12H PRN PRN Reason: AGITATION Last Admin: 01/01/19 04:12 Dose: 1 mg Tamsulosin HCl (Flomax -) 0.4 mg PO DAILY@0830 [facility] Last Admin: 01/03/19 10:37 Dose: 0.4 mg - Objective Vital Signs: Vital Signs Temperature 98.6 F 01/03/19 14:00 Pulse Rate 73 01/03/19 14:00 Respiratory Rate 18 01/03/19 14:00 Blood Pressure 148/72 01/03/19 14:00 O2 Sat by Pulse Oximetry (%) 96 01/01/19 08:45 Constitutional: Yes: Calm Eyes: Yes: Conjunctiva Clear HENT: Yes: Atraumatic Neck: Yes: Supple Cardiovascular: Yes: S1, S2 Respiratory: Yes: Regular Gastrointestinal: Yes: Normal Bowel Sounds Genitourinary: Yes: WNL Musculoskeletal: Yes: WNL Edema: Yes Edema: LLE: 1+, RLE: 1+ Neurological: Yes: Confusion Labs: CBC, BMP 01/01/19 07:50 01/03/19 11:40 INR, PTT INR 1.62 (0.83-1.09) H 12/10/18 15:07 Problem List - Problems (1) ALIYA (acute kidney injury) Code(s): N17.9 - ACUTE KIDNEY FAILURE, UNSPECIFIED (2) Altered mental status Code(s): R41.82 - ALTERED MENTAL STATUS, UNSPECIFIED Assessment/Plan Current Medications Generic Name Dose Route Start Last Admin Trade Name Freq PRN Reason Stop Dose Admin Acetaminophen 650 mg 12/27/18 17:00 01/02/19 02:01 Tylenol - PO 650 mg Q6H PRN Administration PAIN SCALE 6-10 Carvedilol 25 mg 12/29/18 10:00 01/03/19 10:37 Coreg - PO 25 mg BID JONNY Administration Furosemide 20 mg 12/28/18 10:00 01/03/19 10:37 Lasix - PO 20 mg DAILY JONNY Administration Haloperidol 1 mg 12/30/18 20:38 01/01/19 04:12 Haldol - PO 1 mg Q12H PRN Administration AGITATION Tamsulosin HCl 0.4 mg 12/31/18 08:30 01/03/19 10:37 Flomax - PO 0.4 mg DAILY@0830 JONNY Administration Impression 1. CKD 2. HTN 3. CHF 4. weakness 5. dementia 6. bilateral hydroceles Plan - change lasix to 40 mg - montor renal function - volume status stable - will follow PRN
--- NOTE | 2019-01-03 17:59 | PN ---
Progress Note (short form) - Note Progress Note: Awaiting MRI. Not performed as of yet Multiple tumor markers are pending
--- NOTE | 2019-01-04 09:49 | PN ---
Progress Note, Physician History of Present Illness: stable no issues - Current Medication List Current Medications: Active Medications Acetaminophen (Tylenol -) 650 mg PO Q6H PRN PRN Reason: PAIN SCALE 6-10 Last Admin: 01/02/19 02:01 Dose: 650 mg Carvedilol (Coreg -) 25 mg PO BID [facility] Last Admin: 01/03/19 21:34 Dose: 25 mg Furosemide (Lasix -) 40 mg PO DAILY [facility] Haloperidol (Haldol -) 1 mg PO Q12H PRN PRN Reason: AGITATION Last Admin: 01/01/19 04:12 Dose: 1 mg Tamsulosin HCl (Flomax -) 0.4 mg PO DAILY@0830 [facility] Last Admin: 01/03/19 10:37 Dose: 0.4 mg - Objective Vital Signs: Vital Signs Temperature 98.5 F 01/04/19 06:29 Pulse Rate 94 H 01/04/19 06:29 Respiratory Rate 20 01/04/19 06:29 Blood Pressure 136/80 01/04/19 06:29 O2 Sat by Pulse Oximetry (%) 96 01/01/19 08:45 Constitutional: Yes: No Distress, Calm Cardiovascular: Yes: S1, S2 Respiratory: Yes: Regular, CTA Bilaterally Gastrointestinal: Yes: Normal Bowel Sounds, Soft Musculoskeletal: Yes: WNL Extremities: Yes: Other Neurological: Yes: Alert Psychiatric: Yes: Alert Labs: CBC, BMP 01/01/19 07:50 01/03/19 11:40 INR, PTT INR 1.62 (0.83-1.09) H 12/10/18 15:07 Assessment/Plan roblem List - Problems (1) ALIYA (acute kidney injury) Code(s): N17.9 - ACUTE KIDNEY FAILURE, UNSPECIFIED (2) Dementia Code(s): F03.90 - UNSPECIFIED DEMENTIA WITHOUT BEHAVIORAL DISTURBANCE Qualifiers: Dementia type: unspecified type (3) HTN (hypertension) Code(s): I10 - ESSENTIAL (PRIMARY) HYPERTENSION Qualifiers: Hypertension type: essential hypertension Qualified Code(s): I10 - Essential (primary) hypertension (4) Hydrocele in adult Code(s): N43.3 - HYDROCELE, UNSPECIFIED (5) Leukocytosis Code(s): D72.829 - ELEVATED WHITE BLOOD CELL COUNT, UNSPECIFIED (6) UTI (urinary tract infection) Code(s): N39.0 - URINARY TRACT INFECTION, SITE NOT SPECIFIED Assessment/Plan Diarrhea UTI Leukocytosis plan continue current mgmt rest as per the team
--- NOTE | 2019-01-04 11:05 | DS ---
Physical Examination Vital Signs: Vital Signs Temperature 98.5 F 01/04/19 06:29 Pulse Rate 94 H 01/04/19 06:29 Respiratory Rate 20 01/04/19 06:29 Blood Pressure 136/80 01/04/19 06:29 O2 Sat by Pulse Oximetry (%) 96 01/01/19 08:45 Constitutional: Yes: No Distress HENT: Yes: Atraumatic Neck: Yes: Supple Cardiovascular: Yes: Regular Rate and Rhythm Respiratory: Yes: CTA Bilaterally Gastrointestinal: Yes: Normal Bowel Sounds Extremities: Yes: WNL Neurological: Yes: Alert, Oriented Labs: CBC, BMP 01/01/19 07:50 01/03/19 11:40 Discharge Summary Problems reviewed: Yes Reason For Visit: UTI Current Active Problems ALIYA (acute kidney injury) (Acute) Altered mental status (Acute) Combined systolic and diastolic cardiac dysfunction (Acute) Dementia (Acute) Elevated troponin I level (Acute) HTN (hypertension) (Acute) Hydrocele in adult (Acute) Hypercholesterolemia (Acute) Leukocytosis (Acute) Liver mass (Acute) 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) Pneumonia (Acute) Transaminitis (Acute) UTI (urinary tract infection) (Acute) Condition: Guarded - Instructions Diet, Activity, Other Instructions: follow up with [facility] FOLLOW UP WITH GI/UROLOGIST MRI CAN BE DONE OUT PATIENT Referrals: Joesph Holden MD [Staff Physician] - Quentin Lopez DO [Staff Physician] - Avery Car MD [Staff Physician] - - Home Medications Comprehensive Discharge Medication List: Ambulatory Orders Atorvastatin Ca [Lipitor] 80 mg PO HS 12/10/18 Carvedilol 12.5 mg PO BID 12/10/18 Furosemide 20 mg PO DAILY 12/10/18 Haloperidol 2 mg PO BID 12/10/18 Losartan Potassium 50 mg PO DAILY 12/10/18 Tamsulosin HCl [Flomax] 0.4 mg PO HS 12/10/18
[2019-01-04] MEDS: CARVEDILOL 25 MG TABLET (FP) PO SCH ×2 (11:23→21:43)
[2019-01-04] MEDS: TAMSULOSIN HCL 0.4 MG CAP PO SCH (11:23)
[2019-01-04] MEDS: FUROSEMIDE 40 MG TABLET (FP) PO SCH (11:23)
--- NOTE | 2019-01-04 15:39 | PN ---
Progress Note, Physician History of Present Illness: Pt seen and examined at bedside. He denies shortness of breath. - Current Medication List Current Medications: Active Medications Acetaminophen (Tylenol -) 650 mg PO Q6H PRN PRN Reason: PAIN SCALE 6-10 Last Admin: 01/02/19 02:01 Dose: 650 mg Carvedilol (Coreg -) 25 mg PO BID [facility] Last Admin: 01/04/19 11:23 Dose: 25 mg Furosemide (Lasix -) 40 mg PO DAILY [facility] Last Admin: 01/04/19 11:23 Dose: 40 mg Haloperidol (Haldol -) 1 mg PO Q12H PRN PRN Reason: AGITATION Last Admin: 01/01/19 04:12 Dose: 1 mg Tamsulosin HCl (Flomax -) 0.4 mg PO DAILY@0830 [facility] Last Admin: 01/04/19 11:23 Dose: 0.4 mg - Objective Vital Signs: Vital Signs Temperature 98.5 F 01/04/19 06:29 Pulse Rate 94 H 01/04/19 06:29 Respiratory Rate 20 01/04/19 06:29 Blood Pressure 136/80 01/04/19 06:29 O2 Sat by Pulse Oximetry (%) 96 01/01/19 08:45 Constitutional: Yes: Calm Eyes: Yes: Conjunctiva Clear HENT: Yes: Atraumatic Cardiovascular: Yes: S1, S2 Respiratory: Yes: CTA Bilaterally Gastrointestinal: Yes: Soft Genitourinary: Yes: WNL Edema: Yes Edema: LLE: 1+, RLE: 1+ Neurological: Yes: Confusion Labs: CBC, BMP 01/01/19 07:50 01/03/19 11:40 INR, PTT INR 1.62 (0.83-1.09) H 12/10/18 15:07 Problem List - Problems (1) ALIYA (acute kidney injury) Code(s): N17.9 - ACUTE KIDNEY FAILURE, UNSPECIFIED (2) Altered mental status Code(s): R41.82 - ALTERED MENTAL STATUS, UNSPECIFIED Assessment/Plan Current Medications Generic Name Dose Route Start Last Admin Trade Name Freq PRN Reason Stop Dose Admin Acetaminophen 650 mg 12/27/18 17:00 01/02/19 02:01 Tylenol - PO 650 mg Q6H PRN Administration PAIN SCALE 6-10 Carvedilol 25 mg 12/29/18 10:00 01/04/19 11:23 Coreg - PO 25 mg BID JONNY Administration Furosemide 40 mg 01/03/19 16:31 01/04/19 11:23 Lasix - PO 40 mg DAILY JONNY Administration Haloperidol 1 mg 12/30/18 20:38 01/01/19 04:12 Haldol - PO 1 mg Q12H PRN Administration AGITATION Tamsulosin HCl 0.4 mg 12/31/18 08:30 01/04/19 11:23 Flomax - PO 0.4 mg DAILY@0830 JONNY Administration Impression 1. CKD 2. HTN 3. CHF 4. weakness 5. dementia 6. bilateral hydroceles Plan - cont lasix - will need outpt follow up - low sodium diet - will follow PRN
[2019-01-04] MEDS ORDERED: ALBUTEROL SO4 0.083% IH SOL 2.5 MG/3 ML VIAL.NEB. NEB ONE (17:00)
--- NOTE | 2019-01-04 20:50 | PN ---
Progress Note, Physician History of Present Illness: not sob sitting - Current Medication List Current Medications: Active Medications Acetaminophen (Tylenol -) 650 mg PO Q6H PRN PRN Reason: PAIN SCALE 6-10 Last Admin: 01/02/19 02:01 Dose: 650 mg Carvedilol (Coreg -) 25 mg PO BID [facility] Last Admin: 01/04/19 11:23 Dose: 25 mg Furosemide (Lasix -) 40 mg PO DAILY [facility] Last Admin: 01/04/19 11:23 Dose: 40 mg Haloperidol (Haldol -) 1 mg PO Q12H PRN PRN Reason: AGITATION Last Admin: 01/01/19 04:12 Dose: 1 mg Tamsulosin HCl (Flomax -) 0.4 mg PO DAILY@0830 [facility] Last Admin: 01/04/19 11:23 Dose: 0.4 mg - Objective Vital Signs: Vital Signs Temperature 97.1 F L 01/04/19 19:08 Pulse Rate 68 01/04/19 19:08 Respiratory Rate 20 01/04/19 19:08 Blood Pressure 141/77 01/04/19 19:08 O2 Sat by Pulse Oximetry (%) 95 01/04/19 09:00 Constitutional: Yes: No Distress HENT: Yes: Atraumatic Neck: Yes: Supple Cardiovascular: Yes: Regular Rate and Rhythm Respiratory: Yes: Rhonchi Gastrointestinal: Yes: Normal Bowel Sounds Extremities: Yes: WNL Edema: No Peripheral Pulses WNL: Yes Neurological: Yes: Alert, Oriented Labs: CBC, BMP 01/01/19 07:50 01/03/19 11:40 INR, PTT INR 1.62 (0.83-1.09) H 12/10/18 15:07 Problem List - Problems (1) ALIYA (acute kidney injury) Assessment/Plan: monitor improving renal consult Code(s): N17.9 - ACUTE KIDNEY FAILURE, UNSPECIFIED (2) Altered mental status Assessment/Plan: doing well alert talking Code(s): R41.82 - ALTERED MENTAL STATUS, UNSPECIFIED (3) Elevated troponin I level Code(s): R79.89 - OTHER SPECIFIED ABNORMAL FINDINGS OF BLOOD CHEMISTRY (4) Pneumonia Code(s): J18.9 - PNEUMONIA, UNSPECIFIED ORGANISM (5) UTI (urinary tract infection) Assessment/Plan: abx completed Code(s): N39.0 - URINARY TRACT INFECTION, SITE NOT SPECIFIED (6) HTN (hypertension) Assessment/Plan: on meds Code(s): I10 - ESSENTIAL (PRIMARY) HYPERTENSION Qualifiers: Hypertension type: essential hypertension Qualified Code(s): I10 - Essential (primary) hypertension (7) Hypercholesterolemia Assessment/Plan: on meds Code(s): E78.00 - PURE HYPERCHOLESTEROLEMIA, UNSPECIFIED (8) Hydrocele in adult Assessment/Plan: s/p cysto/turp Code(s): N43.3 - HYDROCELE, UNSPECIFIED (9) Dementia Code(s): F03.90 - UNSPECIFIED DEMENTIA WITHOUT BEHAVIORAL DISTURBANCE Qualifiers: Dementia type: unspecified type (10) Leukocytosis Code(s): D72.829 - ELEVATED WHITE BLOOD CELL COUNT, UNSPECIFIED (11) Liver mass Code(s): R16.0 - HEPATOMEGALY, NOT ELSEWHERE CLASSIFIED
[2019-01-04 21:09] LABS: HEP B CORE AB, TOT Positive (Negative)
[2019-01-04] MEDS: ACETAMINOPHEN 325 MG TABLET (FP) PO PRN (21:47)
[2019-01-05] MEDS: CARVEDILOL 25 MG TABLET (FP) PO SCH ×2 (09:04→21:47)
[2019-01-05] MEDS: TAMSULOSIN HCL 0.4 MG CAP PO SCH (09:04)
[2019-01-05] MEDS: FUROSEMIDE 40 MG TABLET (FP) PO SCH (09:05)
--- NOTE | 2019-01-05 16:45 | PN ---
Progress Note, Physician History of Present Illness: Pt is alert and fully responsive. No acute distress noted. No diarrhea. Off antibiotics now. - Current Medication List Current Medications: Active Medications Acetaminophen (Tylenol -) 650 mg PO Q6H PRN PRN Reason: PAIN SCALE 6-10 Last Admin: 01/04/19 21:47 Dose: 650 mg Albuterol Sulfate (Ventolin 0.083% Nebulizer Soln -) 1 amp NEB Q4H PRN PRN Reason: SHORT OF BREATH/WHEEZING Carvedilol (Coreg -) 25 mg PO BID [facility] Last Admin: 01/05/19 09:04 Dose: 25 mg Furosemide (Lasix -) 40 mg PO DAILY [facility] Last Admin: 01/05/19 09:05 Dose: 40 mg Haloperidol (Haldol -) 1 mg PO Q12H PRN PRN Reason: AGITATION Last Admin: 01/01/19 04:12 Dose: 1 mg Tamsulosin HCl (Flomax -) 0.4 mg PO DAILY@0830 [facility] Last Admin: 01/05/19 09:04 Dose: 0.4 mg - Objective Vital Signs: Vital Signs Temperature 97.9 F 01/05/19 08:45 Pulse Rate 68 01/05/19 08:45 Respiratory Rate 20 01/05/19 08:45 Blood Pressure 130/69 01/05/19 08:45 O2 Sat by Pulse Oximetry (%) 97 01/05/19 09:00 Constitutional: Yes: No Distress, Calm Cardiovascular: Yes: Regular Rate and Rhythm Respiratory: Yes: Regular Gastrointestinal: Yes: Normal Bowel Sounds, Soft Genitourinary: Yes: WNL Integumentary: Yes: WNL Neurological: Yes: Alert Labs: CBC, BMP 01/01/19 07:50 01/03/19 11:40 INR, PTT INR 1.62 (0.83-1.09) H 12/10/18 15:07 Laboratory Last Values WBC 7.4 K/mm3 (4.0-10.0) 01/01/19 07:50 Corrected WBC (auto) Cancelled 12/11/18 05:32 RBC 3.50 M/mm3 (4.00-5.60) L 01/01/19 07:50 Hgb 10.4 GM/dL (11.7-16.9) L 01/01/19 07:50 Hct 33.0 % (35.4-49) L 01/01/19 07:50 MCV 94.4 fl (80-96) 01/01/19 07:50 MCH 29.9 pg (25.7-33.7) 01/01/19 07:50 MCHC 31.6 g/dl (32.0-35.9) L 01/01/19 07:50 RDW 17.0 % (11.9-15.9) H 01/01/19 07:50 Plt Count 172 K/MM3 (134-434) D 01/01/19 07:50 MPV 11.9 fl (7.5-11.1) H 01/01/19 07:50 Absolute Neuts (auto) 5.0 K/mm3 (1.5-8.0) 01/01/19 07:50 Absolute Lymphs (auto) Cancelled 12/11/18 05:32 Absolute Monos (auto) Cancelled 12/11/18 05:32 Absolute Eos (auto) Cancelled 12/11/18 05:32 Absolute Basos (auto) Cancelled 12/11/18 05:32 Add Manual Diff Cancelled 12/11/18 05:32 Neutrophils % 67.8 % (42.8-82.8) 01/01/19 07:50 Neutrophils % (Manual) 91.2 % (42.8-82.8) H 12/11/18 08:10 Band Neutrophils % 0.0 % 12/11/18 08:10 Lymphocytes % 20.4 % (8-40) D 01/01/19 07:50 Lymphocytes % (Manual) 4.9 % (8-40) L D 12/11/18 08:10 Monocytes % 8.5 % (3.8-10.2) 01/01/19 07:50 Monocytes % (Manual) 3 % (3.8-10.2) L 12/11/18 08:10 Eosinophils % 2.7 % (0-4.5) D 01/01/19 07:50 Eosinophils % (Manual) 0.0 % (0-4.5) 12/11/18 08:10 Basophils % 0.6 % (0-2.0) 01/01/19 07:50 Basophils % (Manual) 0.0 % (0-2.0) 12/11/18 08:10 Myelocytes % (Man) 1 % (0-2) D 12/11/18 08:10 Promyelocytes % (Man) 0 % (0-2) 12/11/18 08:10 Blast Cells % (Manual) 0 % (0-0) 12/11/18 08:10 Nucleated RBC % 0 % (0-0) 01/01/19 07:50 Metamyelocytes 0 % (0-2) 12/11/18 08:10 Hypochromia 0 12/11/18 08:10 Platelet Estimate Decreased 12/11/18 08:10 Platelet Comment Cancelled 12/11/18 05:32 Normal RBC Morphology Cancelled 12/11/18 05:32 Polychromasia 0 12/11/18 08:10 Poikilocytosis 0 12/11/18 08:10 Anisocytosis 0 12/11/18 08:10 Microcytosis 0 12/11/18 08:10 Macrocytosis 0 12/11/18 08:10 PT with INR 19.20 SEC (9.7-13.0) H 12/10/18 15:07 INR 1.62 (0.83-1.09) H 12/10/18 15:07 PTT (Actin FS) 31.7 SECONDS (25.2-36.5) 12/10/18 15:07 VBG pH 7.43 (7.31-7.41) H 12/10/18 15:25 POC VBG pCO2 37.2 mmHg (38-52) L 12/10/18 15:25 POC VBG pO2 < 49 mmHg (28-48) H 12/10/18 15:25 VBG HCO3 24.3 mmol/L (23-29) 12/10/18 15:25 VBG O2 Sat (Levon) 60.9 % (70-80) L 12/10/18 15:25 VBG Base Excess 0.7 meq/l (-2-2) 12/10/18 15:25 Sodium 139 mmol/L (136-145) 01/03/19 11:40 Potassium 4.6 mmol/L (3.5-5.1) 01/03/19 11:40 Chloride 109 mmol/L (98-107) H 01/03/19 11:40 Carbon Dioxide 26 mmol/L (21-32) 01/03/19 11:40 Anion Gap 4 MMOL/L (8-16) L 01/03/19 11:40 BUN 20.1 mg/dL (7-18) H 01/03/19 11:40 Creatinine 1.9 mg/dL (0.55-1.3) H 01/03/19 11:40 Est GFR (CKD-EPI)AfAm 38.83 01/03/19 11:40 Est GFR (CKD-EPI)NonAf 33.50 01/03/19 11:40 POC Glucometer 103 UNITS (80-120) 12/15/18 11:47 Random Glucose 104 mg/dL (74-106) 01/03/19 11:40 Lactic Acid 1.8 mmol/L (0.4-2.0) 12/10/18 15:07 Calcium 8.6 mg/dL (8.5-10.1) 01/03/19 11:40 Magnesium 2.1 mg/dL (1.8-2.4) 12/10/18 15:07 Total Bilirubin 0.7 mg/dL (0.2-1) 01/01/19 07:50 AST 17 U/L (15-37) 01/01/19 07:50 ALT 13 U/L (13-61) 01/01/19 07:50 Alkaline Phosphatase 121 U/L (45-117) H 01/01/19 07:50 Creatine Kinase 126 U/L (26-308) 12/11/18 20:25 Creatine Kinase Index 0.7 % (0.0-5.0) 12/10/18 15:07 CK-MB (CK-2) 1.3 ng/mL (0.5-3.6) 12/10/18 15:07 Troponin I 0.07 ng/ml (0.00-0.05) H 12/11/18 20:25 B-Natriuretic Peptide 25851.6 pg/ml (5-450) H 12/10/18 15:07 Total Protein 6.5 g/dl (6.4-8.2) 01/01/19 07:50 Albumin 2.3 g/dl (3.4-5.0) L 01/01/19 07:50 Tumor Marker AFP 3.1 ng/ml (0.0-8.3) 01/03/19 11:40 CA 19-9 Antigen 27 U/mL (0-35) 01/03/19 11:40 TSH 1.06 uIU/ml (0.358-3.74) 12/10/18 15:07 Urine Color Yellow 12/10/18 15:10 Urine Appearance Clear 12/10/18 15:10 Urine pH 6.5 (5.0-8.0) 12/10/18 15:10 Ur Specific [place] 1.018 (1.010-1.035) 12/10/18 15:10 Urine Protein 1+ (NEGATIVE) H 12/10/18 15:10 Urine Glucose (UA) Negative (NEGATIVE) 12/10/18 15:10 Urine Ketones Negative (NEGATIVE) 12/10/18 15:10 Urine Blood 3+ (NEGATIVE) H 12/10/18 15:10 Urine Nitrite Negative (NEGATIVE) 12/10/18 15:10 Urine Bilirubin Negative (NEGATIVE) 12/10/18 15:10 Urine Urobilinogen 1.0 mg/dL (0.2-1.0) 12/10/18 15:10 Ur Leukocyte Esterase 2+ (NEGATIVE) H 12/10/18 15:10 Urine WBC (Auto) 31 /hpf (0-5) 12/10/18 15:10 Urine RBC (Auto) 374 /hpf (0-4) 12/10/18 15:10 Urine Casts (Auto) 7 /lpf (0-8) 12/10/18 15:10 U Epithel Cells (Auto) 8.3 /HPF (0-5/HPF) 12/10/18 15:10 U Sm Round Cell (Auto) Negative 12/10/18 15:10 Urine Bacteria (Auto) 4.3 /hpf (NEGATIVE) 12/10/18 15:10 Hep A IgM Ab Confirm Negative (Negative) 01/03/19 11:40 Hepatitis A Ab Total Positive (Negative) H 01/03/19 11:40 Hep Bs Antigen Positive (Negative) H 01/03/19 11:40 Hep Bs Antibody Non reactive (.) 01/03/19 11:40 Hep B Core Total Ab Positive (Negative) H 01/03/19 11:40 Hep B Core IgM Ab Negative (Negative) 01/03/19 11:40 Hepatitis Be Antibody Positive (Negative) H 01/03/19 11:40 Hepatitis Be Antigen Negative (Negative) 01/03/19 11:40 Blood Type O POSITIVE 12/10/18 15:25 Antibody Screen Negative 12/10/18 15:25 - ....Imaging Cat Scan: Report Reviewed Ultrasound: Report Reviewed Problem List - Problems (1) ALIYA (acute kidney injury) Code(s): N17.9 - ACUTE KIDNEY FAILURE, UNSPECIFIED (2) Dementia Code(s): F03.90 - UNSPECIFIED DEMENTIA WITHOUT BEHAVIORAL DISTURBANCE Qualifiers: Dementia type: unspecified type (3) HTN (hypertension) Code(s): I10 - ESSENTIAL (PRIMARY) HYPERTENSION Qualifiers: Hypertension type: essential hypertension Qualified Code(s): I10 - Essential (primary) hypertension (4) Hydrocele in adult Code(s): N43.3 - HYDROCELE, UNSPECIFIED (5) Leukocytosis Code(s): D72.829 - ELEVATED WHITE BLOOD CELL COUNT, UNSPECIFIED (6) UTI (urinary tract infection) Code(s): N39.0 - URINARY TRACT INFECTION, SITE NOT SPECIFIED Assessment/Plan UTI 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
--- NOTE | 2019-01-05 20:14 | PN ---
Progress Note, Physician - Current Medication List Current Medications: Active Medications Acetaminophen (Tylenol -) 650 mg PO Q6H PRN PRN Reason: PAIN SCALE 6-10 Last Admin: 01/04/19 21:47 Dose: 650 mg Albuterol Sulfate (Ventolin 0.083% Nebulizer Soln -) 1 amp NEB Q4H PRN PRN Reason: SHORT OF BREATH/WHEEZING Carvedilol (Coreg -) 25 mg PO BID ON [facility] OF [facility] Last Admin: 01/05/19 09:04 Dose: 25 mg Furosemide (Lasix -) 40 mg PO DAILY [facility] OF [facility] Last Admin: 01/05/19 09:05 Dose: 40 mg Haloperidol (Haldol -) 1 mg PO Q12H PRN PRN Reason: AGITATION Last Admin: 01/01/19 04:12 Dose: 1 mg Tamsulosin HCl (Flomax -) 0.4 mg PO DAILY@0830 [facility] Last Admin: 01/05/19 09:04 Dose: 0.4 mg - Objective Vital Signs: Vital Signs Temperature 98.1 F 01/05/19 17:37 Pulse Rate 65 01/05/19 17:37 Respiratory Rate 20 01/05/19 17:37 Blood Pressure 131/73 01/05/19 17:37 O2 Sat by Pulse Oximetry (%) 97 01/05/19 09:00 HENT: Yes: Atraumatic Neck: Yes: Supple Cardiovascular: Yes: Regular Rate and Rhythm Respiratory: Yes: CTA Bilaterally Gastrointestinal: Yes: Normal Bowel Sounds Extremities: Yes: WNL Neurological: Yes: Alert Labs: CBC, BMP 01/01/19 07:50 01/03/19 11:40 INR, PTT INR 1.62 (0.83-1.09) H 12/10/18 15:07 Problem List - Problems (1) ALIYA (acute kidney injury) Assessment/Plan: monitor Code(s): N17.9 - ACUTE KIDNEY FAILURE, UNSPECIFIED (2) Altered mental status Assessment/Plan: doing well alert talking Code(s): R41.82 - ALTERED MENTAL STATUS, UNSPECIFIED (3) Elevated troponin I level Code(s): R79.89 - OTHER SPECIFIED ABNORMAL FINDINGS OF BLOOD CHEMISTRY (4) Pneumonia Code(s): J18.9 - PNEUMONIA, UNSPECIFIED ORGANISM (5) UTI (urinary tract infection) Assessment/Plan: abx completed Code(s): N39.0 - URINARY TRACT INFECTION, SITE NOT SPECIFIED (6) HTN (hypertension) Assessment/Plan: on meds Code(s): I10 - ESSENTIAL (PRIMARY) HYPERTENSION Qualifiers: Hypertension type: essential hypertension Qualified Code(s): I10 - Essential (primary) hypertension (7) Hypercholesterolemia Assessment/Plan: on meds Code(s): E78.00 - PURE HYPERCHOLESTEROLEMIA, UNSPECIFIED (8) Hydrocele in adult Assessment/Plan: s/p cysto/turp much improved Code(s): N43.3 - HYDROCELE, UNSPECIFIED (9) Dementia Code(s): F03.90 - UNSPECIFIED DEMENTIA WITHOUT BEHAVIORAL DISTURBANCE Qualifiers: Dementia type: unspecified type (10) Leukocytosis Code(s): D72.829 - ELEVATED WHITE BLOOD CELL COUNT, UNSPECIFIED (11) Liver mass Code(s): R16.0 - HEPATOMEGALY, NOT ELSEWHERE CLASSIFIED Assessment/Plan pulmonary to review xray findings
[2019-01-05] MEDS: ALBUTEROL SO4 0.083% IH SOL 2.5 MG/3 ML VIAL.NEB. NEB PRN (23:08)
[2019-01-06] MEDS ORDERED: PT OWN MED DRAWER 7, Y5N ONE (09:03)
[2019-01-06] MEDS: TAMSULOSIN HCL 0.4 MG CAP PO SCH (09:09)
[2019-01-06] MEDS: CARVEDILOL 25 MG TABLET (FP) PO SCH ×2 (09:09→21:11)
[2019-01-06] MEDS: FUROSEMIDE 40 MG TABLET (FP) PO SCH ×2 (09:09→15:50)
[2019-01-06 09:37] LABS: BASO % 0.7 % (0-2.0); EOS % 1.9 % (0-4.5); HEMATOCRIT 34.2 % (35.4-49); HEMOGLOBIN 10.8 GM/dL (11.7-16.9); LYMPH % 20.8 % (8-40); MCH 30.2 pg (25.7-33.7); MCHC 31.7 g/dl (32.0-35.9); MEAN CELL VOLUME 95.3 fl (80-96); MEAN PLT VOLUME 12.3 fl (7.5-11.1); MONO % 9.4 % (3.8-10.2); NEUT % 67.2 % (42.8-82.8); PLATELET COUNT 114 K/MM3 (134-434); RBC 3.59 M/mm3 (4.00-5.60); WHITE BLOOD COUNT 7.7 K/mm3 (4.0-10.0)
[2019-01-06 09:59] LABS: ALBUMIN 2.7 g/dl (3.4-5.0); BILIRUBIN,TOTAL 0.6 mg/dL (0.2-1); BLOOD UREA NITROGEN 28.2 mg/dL (7-18); CALCIUM 8.6 mg/dL (8.5-10.1); POTASSIUM 5.1 mmol/L (3.5-5.1); TOT PROT 7.1 g/dl (6.4-8.2)
--- NOTE | 2019-01-06 12:00 | CON.PULM ---
Consult Consult Specialty:: PULMONARY Referred by:: Dr Ornelas Reason for Consultation:: abnormal CXR - History of Present Illness Chief Complaint: shortness of breath History of Present Illness: 78yo male with h/o HTN, hypercholesterolemia, CKD, LV systolic dysfunction, dementia who was admitted with generalized weakness. Found to be in urinary retention, now s/p cystoscopy/TUVP and aspiration of hydrocele. Was being prepared for discharge, CXR done for shortness of breath which shows some congestive changes. He does report some shortness of breath and nonproductive cough. No chest pain, palpitations or wheezing. Denies history of asthma/COPD or smoking. 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: Dementia Cardio/Vascular: Yes: CHF Renal/: Yes: Renal Failure - Alcohol/Substance Use Hx Alcohol Use: No - Smoking History Smoking history: Unknown if ever smoked Have you smoked in the past 12 months: No Home Medications - Allergies Allergies/Adverse Reactions: Allergies Allergy/AdvReac Type Severity Reaction Status Date / Time No Known Allergies Allergy Verified 12/10/18 17:18 - Home Medications Home Medications: Ambulatory Orders Atorvastatin Ca [Lipitor] 80 mg PO HS 12/10/18 Carvedilol 12.5 mg PO BID 12/10/18 Furosemide 20 mg PO DAILY 12/10/18 Haloperidol 2 mg PO BID 12/10/18 Losartan Potassium 50 mg PO DAILY 12/10/18 Tamsulosin HCl [Flomax] 0.4 mg PO HS 12/10/18 Review of Systems - Review of Systems Constitutional: denies: Chills, Fever Eyes: denies: Recent Change in Vision HENT: denies: Nasal Congestion, Throat Pain Neck: denies: Stiffness, Tenderness Cardiovascular: reports: Shortness of Breath. denies: Chest Pain, Edema, Palpitations Respiratory: reports: Cough. denies: Hemoptysis, Wheezing Gastrointestinal: denies: Abdominal Pain, Nausea, Vomiting Genitourinary: denies: Dysuria, Hematuria Neurological: denies: Headache Endocrine: denies: Unexplained Weight Loss Physical Exam Vital Sings: Vital Signs Temperature 98.3 F 01/06/19 08:45 Pulse Rate 69 01/06/19 08:45 Respiratory Rate 20 01/06/19 08:45 Blood Pressure 146/86 01/06/19 08:45 O2 Sat by Pulse Oximetry (%) 97 01/05/19 21:00 Constitutional: Yes: Calm Eyes: Yes: Conjunctiva Clear, EOM Intact HENT: Yes: Atraumatic, Normocephalic Neck: Yes: Supple, Trachea Midline Cardiovascular: Yes: Regular Rate and Rhythm Respiratory: Yes: Diminished (decreased breath sounds at the bases) ...Clubbing: No Gastrointestinal: Yes: Normal Bowel Sounds, Soft. No: Tenderness Edema: No Neurological: Yes: Alert Labs: CBC, BMP 01/06/19 08:45 01/06/19 08:45 Imaging - Results Chest X-ray: Report Reviewed, Image Reviewed (mild pulmonary vascular congestion ) Assessment/Plan Acute on Chronic Systolic/Diastolic Heart Failure Pleural Effusion Acute on Chronic Renal Failure improving s/p Cystoscopy/TUVP/Hydrocele drainage HTN Hypercholesterolemia Dementia Anemia Thrombocytopenia - would increase lasix to BID for next 2-3 days - monitor urine output, creatinine - daily weights - O2 to keep Spo2 >90% - beta maya - DVT prophylaxis Thank you for this consult Santiago Dugan MD
--- NOTE | 2019-01-06 13:43 | PN ---
Progress Note, Physician History of Present Illness: not sob sitting - Current Medication List Current Medications: Active Medications Acetaminophen (Tylenol -) 650 mg PO Q6H PRN PRN Reason: PAIN SCALE 6-10 Last Admin: 01/04/19 21:47 Dose: 650 mg Albuterol Sulfate (Ventolin 0.083% Nebulizer Soln -) 1 amp NEB Q4H PRN PRN Reason: SHORT OF BREATH/WHEEZING Last Admin: 01/05/19 23:08 Dose: 1 amp Carvedilol (Coreg -) 25 mg PO BID [facility] Last Admin: 01/06/19 09:09 Dose: 25 mg Furosemide (Lasix -) 40 mg PO BIDLASIX [facility]ON[facility] Haloperidol (Haldol -) 1 mg PO Q12H PRN PRN Reason: AGITATION Last Admin: 01/01/19 04:12 Dose: 1 mg Tamsulosin HCl (Flomax -) 0.4 mg PO DAILY@0830 [facility] Last Admin: 01/06/19 09:09 Dose: 0.4 mg - Objective Vital Signs: Vital Signs Temperature 98.3 F 01/06/19 08:45 Pulse Rate 69 01/06/19 08:45 Respiratory Rate 20 01/06/19 08:45 Blood Pressure 146/86 01/06/19 08:45 O2 Sat by Pulse Oximetry (%) 97 01/05/19 21:00 Constitutional: Yes: No Distress HENT: Yes: Atraumatic Neck: Yes: Supple Cardiovascular: Yes: Regular Rate and Rhythm Respiratory: Yes: CTA Bilaterally, Rhonchi Gastrointestinal: Yes: Normal Bowel Sounds Extremities: Yes: WNL Edema: Yes Edema: LLE: Trace, RLE: Trace Neurological: Yes: Alert Labs: CBC, BMP 01/06/19 08:45 01/06/19 08:45 INR, PTT INR 1.62 (0.83-1.09) H 12/10/18 15:07 Problem List - Problems (1) ALIYA (acute kidney injury) Assessment/Plan: monitor Code(s): N17.9 - ACUTE KIDNEY FAILURE, UNSPECIFIED (2) Altered mental status Assessment/Plan: doing well alert talking Code(s): R41.82 - ALTERED MENTAL STATUS, UNSPECIFIED (3) Elevated troponin I level Code(s): R79.89 - OTHER SPECIFIED ABNORMAL FINDINGS OF BLOOD CHEMISTRY (4) Pneumonia Assessment/Plan: treated Code(s): J18.9 - PNEUMONIA, UNSPECIFIED ORGANISM (5) UTI (urinary tract infection) Code(s): N39.0 - URINARY TRACT INFECTION, SITE NOT SPECIFIED (6) HTN (hypertension) Assessment/Plan: on meds Code(s): I10 - ESSENTIAL (PRIMARY) HYPERTENSION Qualifiers: Hypertension type: essential hypertension Qualified Code(s): I10 - Essential (primary) hypertension (7) Hypercholesterolemia Assessment/Plan: on meds Code(s): E78.00 - PURE HYPERCHOLESTEROLEMIA, UNSPECIFIED (8) Hydrocele in adult Assessment/Plan: s/p cysto/turp much improved Code(s): N43.3 - HYDROCELE, UNSPECIFIED (9) Dementia Code(s): F03.90 - UNSPECIFIED DEMENTIA WITHOUT BEHAVIORAL DISTURBANCE Qualifiers: Dementia type: unspecified type (10) Leukocytosis Code(s): D72.829 - ELEVATED WHITE BLOOD CELL COUNT, UNSPECIFIED (11) Liver mass Assessment/Plan: us liver done gi note reviewed MRI LIVER...not covered as in patient d/w with and daughter Shelley, patient going [place], will go to [facility] to see his doctors Code(s): R16.0 - HEPATOMEGALY, NOT ELSEWHERE CLASSIFIED
--- NOTE | 2019-01-06 18:53 | PN ---
Progress Note, Physician History of Present Illness: Short of breath earlier, seen by Pulmonary. Diuretics increased. No productive cough. Remains afebrile. - Current Medication List Current Medications: Active Medications Acetaminophen (Tylenol -) 650 mg PO Q6H PRN PRN Reason: PAIN SCALE 6-10 Last Admin: 01/04/19 21:47 Dose: 650 mg Albuterol Sulfate (Ventolin 0.083% Nebulizer Soln -) 1 amp NEB Q4H PRN PRN Reason: SHORT OF BREATH/WHEEZING Last Admin: 01/05/19 23:08 Dose: 1 amp Carvedilol (Coreg -) 25 mg PO BID [facility] Last Admin: 01/06/19 09:09 Dose: 25 mg Furosemide (Lasix -) 40 mg PO BIDLASIX [facility] Last Admin: 01/06/19 15:50 Dose: 40 mg Haloperidol (Haldol -) 1 mg PO Q12H PRN PRN Reason: AGITATION Last Admin: 01/01/19 04:12 Dose: 1 mg Tamsulosin HCl (Flomax -) 0.4 mg PO DAILY@0830 [facility] Last Admin: 01/06/19 09:09 Dose: 0.4 mg - Objective Vital Signs: Vital Signs Temperature 98.2 F 01/06/19 12:00 Pulse Rate 90 01/06/19 12:00 Respiratory Rate 20 01/06/19 12:00 Blood Pressure 144/115 H 01/06/19 12:00 O2 Sat by Pulse Oximetry (%) 97 01/05/19 21:00 Constitutional: Yes: No Distress, Calm Respiratory: Yes: Diminished Gastrointestinal: Yes: Normal Bowel Sounds, Soft Genitourinary: Yes: WNL Integumentary: Yes: WNL Neurological: Yes: Alert Labs: CBC, BMP 01/06/19 08:45 01/06/19 08:45 INR, PTT INR 1.62 (0.83-1.09) H 12/10/18 15:07 Problem List - Problems (1) ALIYA (acute kidney injury) Code(s): N17.9 - ACUTE KIDNEY FAILURE, UNSPECIFIED (2) Dementia Code(s): F03.90 - UNSPECIFIED DEMENTIA WITHOUT BEHAVIORAL DISTURBANCE Qualifiers: Dementia type: unspecified type (3) HTN (hypertension) Code(s): I10 - ESSENTIAL (PRIMARY) HYPERTENSION Qualifiers: Hypertension type: essential hypertension Qualified Code(s): I10 - Essential (primary) hypertension (4) Hydrocele in adult Code(s): N43.3 - HYDROCELE, UNSPECIFIED (5) Leukocytosis Code(s): D72.829 - ELEVATED WHITE BLOOD CELL COUNT, UNSPECIFIED (6) UTI (urinary tract infection) Code(s): N39.0 - URINARY TRACT INFECTION, SITE NOT SPECIFIED Assessment/Plan UTI 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
[2019-01-06] MEDS: HALOPERIDOL 1 MG TABLET (FP) PO PRN (22:00)
[2019-01-06] MEDS: ALBUTEROL SO4 0.083% IH SOL 2.5 MG/3 ML VIAL.NEB. NEB PRN (23:30)
[2019-01-07] MEDS: FUROSEMIDE 40 MG TABLET (FP) PO SCH (08:22)
[2019-01-07] MEDS: CARVEDILOL 25 MG TABLET (FP) PO SCH ×2 (08:28→11:31)
[2019-01-07] MEDS: TAMSULOSIN HCL 0.4 MG CAP PO SCH (08:28)
--- NOTE | 2019-01-07 09:37 | PN ---
Progress Note (short form) - Note Progress Note: Sleepy but easily arousable. Reports breathing feels better. NAD on RA. No acute events overnight. Intake & Output 01/04/19 01/05/19 01/06/19 01/07/19 23:59 23:59 23:59 23:59 Intake Total 615 547 3693 Balance 380 340 7503 Last Vital Signs Temp Pulse Resp BP Pulse Ox 98 F 65 20 138/96 98 01/07/19 03:00 01/07/19 03:00 01/07/19 03:00 01/07/19 03:00 01/06/19 21:00 Active Medications Acetaminophen (Tylenol -) 650 mg PO Q6H PRN PRN Reason: PAIN SCALE 6-10 Last Admin: 01/04/19 21:47 Dose: 650 mg Albuterol Sulfate (Ventolin 0.083% Nebulizer Soln -) 1 amp NEB Q4H PRN PRN Reason: SHORT OF BREATH/WHEEZING Last Admin: 01/06/19 23:30 Dose: 1 amp Carvedilol (Coreg -) 25 mg PO BID [facility] Last Admin: 01/07/19 08:28 Dose: 25 mg Furosemide (Lasix -) 40 mg PO BIDLASIX [facility] Last Admin: 01/07/19 08:22 Dose: 40 mg Haloperidol (Haldol -) 1 mg PO Q12H PRN PRN Reason: AGITATION Last Admin: 01/06/19 22:00 Dose: 1 mg Tamsulosin HCl (Flomax -) 0.4 mg PO DAILY@0830 [facility] Last Admin: 01/07/19 08:28 Dose: 0.4 mg Constitutional: Yes: NAD Eyes: Yes: Conjunctiva Clear, EOM Intact HENT: Yes: Atraumatic, Normocephalic Neck: Yes: Supple, Trachea Midline Cardiovascular: Yes: Regular Rate and Rhythm Respiratory: Yes: Diminished breath sounds at the bases ...Clubbing: No Gastrointestinal: Yes: Normal Bowel Sounds, Soft. No: Tenderness Edema: No Neurological: Yes: Alert, mildly confused Labs: Laboratory Results - last 24 hr 01/06/19 01/06/19 08:45 08:45 WBC 7.7 RBC 3.59 L Hgb 10.8 L Hct 34.2 L MCV 95.3 MCH 30.2 MCHC 31.7 L RDW 17.0 H Plt Count 114 L D MPV 12.3 H Absolute Neuts (auto) 5.2 Neutrophils % 67.2 Lymphocytes % 20.8 Monocytes % 9.4 Eosinophils % 1.9 Basophils % 0.7 Nucleated RBC % 0 Sodium 141 Potassium 5.1 Chloride 112 H Carbon Dioxide 24 Anion Gap 4 L BUN 28.2 H Creatinine 2.0 H Est GFR (CKD-EPI)AfAm 36.49 Est GFR (CKD-EPI)NonAf 31.48 Random Glucose 109 H Calcium 8.6 Total Bilirubin 0.6 AST 46 H ALT 55 Alkaline Phosphatase 207 H Total Protein 7.1 Albumin 2.7 L Assessment/Plan Acute on Chronic Systolic/Diastolic Heart Failure Pleural Effusion Acute on Chronic Renal Failure improving s/p Cystoscopy/TUVP/Hydrocele drainage HTN Hypercholesterolemia Dementia Anemia Thrombocytopenia - Lasix to BID - monitor urine output, creatinine - daily weights - O2 to keep Spo2 >90% - beta maya - DVT prophylaxis Dr Johnson
[2019-01-07 12:14] VITALS: BP 124/74; PULSE 57
[2019-01-07 12:19] VITALS: TEMP 97.8
--- NOTE | 2019-01-07 12:46 | DS ---
Physical Examination Vital Signs: Vital Signs Temperature 97.8 F 01/07/19 12:14 Pulse Rate 57 L 01/07/19 12:14 Respiratory Rate 18 01/07/19 12:14 Blood Pressure 124/74 01/07/19 12:14 O2 Sat by Pulse Oximetry (%) 98 01/06/19 21:00 Labs: CBC, BMP 01/06/19 08:45 01/06/19 08:45 Discharge Summary Problems reviewed: Yes Reason For Visit: UTI Current Active Problems ALIYA (acute kidney injury) (Acute) Altered mental status (Acute) Combined systolic and diastolic cardiac dysfunction (Acute) Dementia (Acute) Elevated troponin I level (Acute) HTN (hypertension) (Acute) Hydrocele in adult (Acute) Hypercholesterolemia (Acute) Leukocytosis (Acute) Liver mass (Acute) 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) Pneumonia (Acute) Transaminitis (Acute) UTI (urinary tract infection) (Acute) Condition: Guarded - Instructions Diet, Activity, Other Instructions: follow up with [facility] FOLLOW UP WITH GI/UROLOGIST MRI CAN BE DONE OUT PATIENT Referrals: Joesph Holden MD [Staff Physician] - Quentin Lopez DO [Staff Physician] - Avery Car MD [Staff Physician] - - Home Medications Comprehensive Discharge Medication List: Ambulatory Orders Atorvastatin Ca [Lipitor] 80 mg PO HS #30 tablet 01/06/19 Carvedilol [Coreg -] 25 mg PO BID #60 tablet 01/06/19 Furosemide [Lasix] 40 mg PO DAILY #30 tablet 01/06/19 Tamsulosin HCl [Flomax -] 0.4 mg PO DAILY@0830 #30 cap.er.24h 01/06/19 Albuterol Sulfate Inhaler - [Ventolin HFA Inhaler -] 1 - 2 inh PO Q4H #1 inhaler 01/07/19
--- NOTE | 2019-01-07 13:04 | PN ---
Progress Note, Physician History of Present Illness: stable no new issues - Current Medication List Current Medications: Active Medications Acetaminophen (Tylenol -) 650 mg PO Q6H PRN PRN Reason: PAIN SCALE 6-10 Last Admin: 01/04/19 21:47 Dose: 650 mg Albuterol Sulfate (Ventolin 0.083% Nebulizer Soln -) 1 amp NEB Q4H PRN PRN Reason: SHORT OF BREATH/WHEEZING Last Admin: 01/06/19 23:30 Dose: 1 amp Carvedilol (Coreg -) 25 mg PO BID [facility] Last Admin: 01/07/19 11:31 Dose: Not Given Furosemide (Lasix -) 40 mg PO BIDLASIX [facility] Last Admin: 01/07/19 08:22 Dose: 40 mg Haloperidol (Haldol -) 1 mg PO Q12H PRN PRN Reason: AGITATION Last Admin: 01/06/19 22:00 Dose: 1 mg Tamsulosin HCl (Flomax -) 0.4 mg PO DAILY@0830 [facility] Last Admin: 01/07/19 08:28 Dose: 0.4 mg - Objective Vital Signs: Vital Signs Temperature 97.8 F 01/07/19 12:14 Pulse Rate 57 L 01/07/19 12:14 Respiratory Rate 18 01/07/19 12:14 Blood Pressure 124/74 01/07/19 12:14 O2 Sat by Pulse Oximetry (%) 98 01/06/19 21:00 Constitutional: Yes: No Distress, Calm Cardiovascular: Yes: S1, S2 Respiratory: Yes: Regular, CTA Bilaterally Gastrointestinal: Yes: Normal Bowel Sounds, Soft Musculoskeletal: Yes: WNL Extremities: Yes: WNL Neurological: Yes: Alert Psychiatric: Yes: Alert Labs: CBC, BMP 01/06/19 08:45 01/06/19 08:45 INR, PTT INR 1.62 (0.83-1.09) H 12/10/18 15:07 Assessment/Plan roblem List - Problems (1) ALIYA (acute kidney injury) Code(s): N17.9 - ACUTE KIDNEY FAILURE, UNSPECIFIED (2) Dementia Code(s): F03.90 - UNSPECIFIED DEMENTIA WITHOUT BEHAVIORAL DISTURBANCE Qualifiers: Dementia type: unspecified type (3) HTN (hypertension) Code(s): I10 - ESSENTIAL (PRIMARY) HYPERTENSION Qualifiers: Hypertension type: essential hypertension Qualified Code(s): I10 - Essential (primary) hypertension (4) Hydrocele in adult Code(s): N43.3 - HYDROCELE, UNSPECIFIED (5) Leukocytosis Code(s): D72.829 - ELEVATED WHITE BLOOD CELL COUNT, UNSPECIFIED (6) UTI (urinary tract infection) Code(s): N39.0 - URINARY TRACT INFECTION, SITE NOT SPECIFIED Assessment/Plan Diarrhea UTI Leukocytosis plan continue current mgmt rest as per the team
== END 2019-01-07 13:09 | disposition home or self-care (01) | DRG 482 ==
LOC: JER 13:20 → JERBED 16:16 → J4W 12-11 15:39 → J8W 12-19 20:05
PROVIDERS: ADMIT Internal Medicine; ATTEND Internal Medicine
PROC: 0V508ZZ Destruction of Prostate, Via Natural or Artificial Opening Endoscopic (ICD-10-PCS; principal; 2018-12-27 14:00)
PROC: 0V954ZZ Drainage of Scrotum, Percutaneous Endoscopic Approach (ICD-10-PCS; 2018-12-27 14:00)
DX: N40.1 Benign prostatic hyperplasia with lower urinary tract symptoms (principal); N43.3 Hydrocele, unspecified; K76.0 Fatty (change of) liver, not elsewhere classified; R53.1 Weakness; E78.5 Hyperlipidemia, unspecified; D72.829 Elevated white blood cell count, unspecified; K76.1 Chronic passive congestion of liver; R19.7 Diarrhea, unspecified; F09 Unspecified mental disorder due to known physiological condition; N39.0 Urinary tract infection, site not specified; R33.9 Retention of urine, unspecified; I13.0 Hypertensive heart and chronic kidney disease with heart failure and stage 1 through stage 4 chronic kidney disease, or unspecified chronic kidney disease; F03.90 Unspecified dementia, unspecified severity, without behavioral disturbance, psychotic disturbance, mood disturbance, and anxiety; I24.8 Other forms of acute ischemic heart disease; J18.9 Pneumonia, unspecified organism; I50.23 Acute on chronic systolic (congestive) heart failure; N17.9 Acute kidney failure, unspecified; R74.0 Nonspecific elevation of levels of transaminase and lactic acid dehydrogenase [LDH]; D64.9 Anemia, unspecified; D69.6 Thrombocytopenia, unspecified; N18.9 Chronic kidney disease, unspecified; R16.0 Hepatomegaly, not elsewhere classified; I47.1 Supraventricular tachycardia; R41.82 Altered mental status, unspecified
CPT/HCPCS: 36415; 70450-TC; 71045-TC-FY; 71250-TC; 74176-TC; 76705-TC; 76775-TC; 76870-TC; 80048; 80053; 81003; 82105; 82378; 82550; 82553; 82803; 82962; 83605; 83735; 83880; 84443; 84484; 85025; 85027; 85610; 85730; 86301; 86704; 86706; 86707; 86708; 86709; 86850; 86900; 86901; 87040; 87086; 87186; 87324; 87340; 87449; 88108; 88305-TC; 93005; 93010; 93306-TC; 94640; 94760; 97116-GP; 97162-GP; 99285-25; J0131; J1644; J7030